=== PATIENT | male | born 1940 | race Caucasian/White ===

== ENCOUNTER 2016-09-22 10:26 | Inpatient (IN) | payer MEDICARE, MEDICAID ==
[~2016-09-22] VITALS: Ht 188 cm; Wt 51.1 kg
[2016-09-22] MEDS ORDERED: SODIUM CHLORIDE FLUSH 10ML SYR IVF ONE (11:30)
[2016-09-22] MEDS ORDERED: SODIUM CHLORIDE 0.9% 1,000ML IVBOLUS ONE (11:30)
[2016-09-22 11:32] LABS: HEMATOCRIT 35.8 % (39.2-51.8); HEMOGLOBIN 11.3 g/dL (13.7-18.0); WHITE BLOOD COUNT 10.2 x10^3/uL (3.4-10)
[2016-09-22 11:42] LABS: BLOOD UREA NITROGEN 14 mg/dL (7-18)
[2016-09-22 11:48] LABS: ASPARTATE AMINO TRANSFERASE 33 U/L (15-37); IS PT STATUS REG ER OR PRE ER? YES
[2016-09-22] MEDS ORDERED: SODIUM CHLORIDE 0.9% 1,000 ML IV ONE (14:30)
[2016-09-22] MEDS ORDERED: SODIUM CHLORIDE FLUSH 10ML SYR IVF PRN (14:30)
[2016-09-22] MEDS ORDERED: MELA1TAB22 PO (14:39)
[2016-09-22] MEDS ORDERED: TRAZ50TA18 PO (14:39)
[2016-09-22] MEDS ORDERED: LANS30CA PO (14:39)
[2016-09-22] MEDS ORDERED: HYDR-3245 PO (14:39)
[2016-09-22] MEDS ORDERED: OXYC10TA6 PO (14:39)
[2016-09-22] MEDS ORDERED: LEVO25TA2 PO (14:39)
[2016-09-22] MEDS ORDERED: TIOT18CA INH (14:39)
[2016-09-22] MEDS ORDERED: FLUT1AER INH (14:39)
[2016-09-22] MEDS ORDERED: OXYC5CAP2 PO (14:39)
[2016-09-22] MEDS ORDERED: ALBU0.63 NEB (14:39)
[2016-09-22] MEDS ORDERED: LORA1TAB PO (14:39)
[2016-09-22] MEDS ORDERED: LEVE500T8 PO (14:39)
[2016-09-22] MEDS ORDERED: HYDROcodone/APAP 5/325 TABLET PO ONE (15:00)
[2016-09-22] MEDS ORDERED: MORPHINE SULFATE 4 MG/ML, 1ML ONE (15:15)
[2016-09-22] MEDS ORDERED: DOCUSATE 100 MG CAPSULE PO PRN (15:30)
[2016-09-22] MEDS ORDERED: ACETAMINOPHEN 325 MG TABLET PO PRN (15:30)
[2016-09-22] MEDS: ENOXAPARIN 30 MG/0.3 ML SQ SCH (15:30)
[2016-09-22] MEDS ORDERED: ENALAPRILAT 1.25 MG/ML, 2ML IVPush PRN (15:30)
[2016-09-22] MEDS ORDERED: POLYETHYLENE GLYCOL 17 GM PACKET PO PRN (15:30)
[2016-09-22] MEDS ORDERED: MORPHINE SULFATE 4 MG/ML, 1ML IVPush PRN (15:30)
[2016-09-22] MEDS ORDERED: ONDANSETRON 2MG/ML, 2ML IVPush PRN (15:30)
[2016-09-22] MEDS ORDERED: BISACODYL 10 MG SUPP PR PRN (15:30)
[2016-09-22 15:45] VITALS: BP 116/69
[2016-09-22] MEDS ORDERED: ALBUTEROL SULFATE 2.5 MG/3 ML NPPB PRN (16:00)
[2016-09-22 17:28] LABS: PATH.CAST-FLAG NOT PRESENT; SPERM-FLAG NOT PRESENT; SRC-FLAG NOT PRESENT; XTAL-FLAG NOT PRESENT; YLC-FLAG NOT PRESENT
[2016-09-22] MEDS: NICOTINE 7 MG/24 HR PATCH.TD24 TD SCH (17:57)
[2016-09-22] MEDS: HYDROcodone/APAP 5/325 TABLET PO PRN ×2 (17:57→22:28)
[2016-09-22] MEDS: D5%-0.45% NACL 1,000 ML IV SCH (17:58)
[2016-09-22 19:13] VITALS: BP 120/64
[2016-09-22] MEDS: FAMOTIDINE 20 MG/2 ML IVPush SCH (22:27)
[2016-09-22] MEDS: LEVETIRACETAM 500 MG TABLET PO SCH (22:27)
[2016-09-22] MEDS: TRAZODONE 50MG TABLET PO SCH (22:28)
[2016-09-23 03:13] VITALS: BP 118/67
[2016-09-23] MEDS: D5%-0.45% NACL 1,000 ML IV SCH ×2 (03:29→16:00)
[2016-09-23] MEDS: ENOXAPARIN 30 MG/0.3 ML SQ SCH ×2 (03:30→15:30)
[2016-09-23] MEDS: HYDROcodone/APAP 5/325 TABLET PO PRN ×3 (03:33→20:05)
[2016-09-23 04:46] LABS: BLOOD UREA NITROGEN 7 mg/dL (7-18)
[2016-09-23 04:51] LABS: HEMATOCRIT 29.3 % (39.2-51.8); HEMOGLOBIN 9.4 g/dL (13.7-18.0); WHITE BLOOD COUNT 9.2 x10^3/uL (3.4-10)
[2016-09-23] MEDS: LEVOTHYROXINE 25 MCG TABLET PO SCH (05:52)
[2016-09-23 07:58] VITALS: BP_SYST 103; BP_SYST 93; BP_DIAS 52
[2016-09-23] MEDS: FLUTICASONE/VILANTEROL 100-25MCG/INH INH SCH (09:00)
[2016-09-23] MEDS: IPRATROPIUM 0.5 MG/2.5 ML INHA NPPB SCH ×3 (09:00→21:00)
[2016-09-23 09:44] LABS: IS PT STATUS REG ER OR PRE ER? NO
[2016-09-23] MEDS: LEVETIRACETAM 500 MG TABLET PO SCH ×2 (10:03→21:37)
[2016-09-23] MEDS: FAMOTIDINE 20 MG/2 ML IVPush SCH ×2 (10:03→21:37)
[2016-09-23 14:30] VITALS: BP 101/56
[2016-09-23] MEDS: NICOTINE 7 MG/24 HR PATCH.TD24 TD SCH (16:00)
[2016-09-23 19:02] VITALS: BP 120/67
[2016-09-23] MEDS: TRAZODONE 50MG TABLET PO SCH (21:37)
[2016-09-24] MEDS: D5%-0.45% NACL 1,000 ML IV SCH ×2 (00:09→12:00)
[2016-09-24] MEDS: HYDROcodone/APAP 5/325 TABLET PO PRN ×5 (00:09→23:17)
[2016-09-24] MEDS: LORazepam 1MG TABLET PO PRN ×2 (00:09→12:00)
[2016-09-24 01:54] VITALS: BP 101/56
[2016-09-24] MEDS: IPRATROPIUM 0.5 MG/2.5 ML INHA NPPB SCH ×2 (03:00→09:00)
[2016-09-24] MEDS: ENOXAPARIN 30 MG/0.3 ML SQ SCH ×2 (03:14→18:36)
[2016-09-24] MEDS: LEVOTHYROXINE 25 MCG TABLET PO SCH (05:41)
[2016-09-24 08:30] VITALS: BP 120/68
[2016-09-24] MEDS: FLUTICASONE/VILANTEROL 100-25MCG/INH INH SCH (09:00)
[2016-09-24] MEDS: LEVETIRACETAM 500 MG TABLET PO SCH ×2 (12:01→20:23)
[2016-09-24] MEDS: FAMOTIDINE 20 MG/2 ML IVPush SCH ×2 (12:01→20:25)
[2016-09-24 14:30] VITALS: BP 132/70
[2016-09-24] MEDS ORDERED: ALBUTEROL SULFATE 2.5MG/0.5ML HOMEINH PRN (14:30)
[2016-09-24] MEDS ORDERED: VENTOLIN 90 MCG INH PRN (15:00)
[2016-09-24] MEDS ORDERED: ALBUTEROL SULFATE 2.5 MG/3 ML NPPB PRN (15:04)
[2016-09-24] MEDS: NICOTINE 7 MG/24 HR PATCH.TD24 TD SCH (18:36)
[2016-09-24 18:41] VITALS: BP 117/64
[2016-09-24] MEDS: TRAZODONE 50MG TABLET PO SCH (20:24)
[2016-09-25 02:39] VITALS: BP 142/73
[2016-09-25] MEDS: HYDROcodone/APAP 5/325 TABLET PO PRN ×3 (05:16→20:40)
[2016-09-25] MEDS: ENOXAPARIN 30 MG/0.3 ML SQ SCH ×3 (06:00→17:42)
[2016-09-25] MEDS: LEVOTHYROXINE 25 MCG TABLET PO SCH (06:07)
[2016-09-25 06:52] VITALS: BP 128/65
[2016-09-25] MEDS: HYDROcodone/APAP 10/325 MG TABLET PO PRN (08:57)
[2016-09-25] MEDS: FAMOTIDINE 20 MG/2 ML IVPush SCH ×2 (08:57→20:40)
[2016-09-25] MEDS: LEVETIRACETAM 500 MG TABLET PO SCH ×2 (08:58→20:40)
[2016-09-25] MEDS: ASCORBIC ACID 500 MG TABLET PO SCH (08:58)
[2016-09-25 14:53] VITALS: BP 115/61
[2016-09-25] MEDS: NICOTINE 7 MG/24 HR PATCH.TD24 TD SCH (16:15)
[2016-09-25] MEDS: FERROUS SULFATE 220 MG/5 ML ORAL SOL PO SCH (16:15)
[2016-09-25] MEDS: PIPERACILLIN/TAZO 3.375 GM in SODIUM CHLORIDE 0.9% 50 ML IV SCH ×2 (16:37→22:12)
[2016-09-25] MEDS: FLUTICASONE/VILANTEROL 100-25MCG/INH INH SCH (16:37)
[2016-09-25 19:53] VITALS: BP 111/60
[2016-09-25] MEDS: TRAZODONE 50MG TABLET PO SCH (20:40)
[2016-09-25] MEDS: morphine SULFATE 10 MG/ML, 1ML IVPush PRN (22:38)
[2016-09-26 01:26] VITALS: BP 106/54
[2016-09-26] MEDS: PIPERACILLIN/TAZO 3.375 GM in SODIUM CHLORIDE 0.9% 50 ML IV SCH ×4 (04:13→22:56)
[2016-09-26] MEDS: ENOXAPARIN 30 MG/0.3 ML SQ SCH ×2 (06:00→16:24)
[2016-09-26] MEDS: LEVOTHYROXINE 25 MCG TABLET PO SCH (06:05)
[2016-09-26] MEDS: HYDROcodone/APAP 5/325 TABLET PO PRN ×4 (06:12→22:56)
[2016-09-26 06:48] VITALS: BP 115/72
[2016-09-26] MEDS: morphine SULFATE 10 MG/ML, 1ML IVPush PRN ×4 (09:19→23:46)
[2016-09-26] MEDS: LEVETIRACETAM 500 MG TABLET PO SCH ×2 (09:19→21:39)
[2016-09-26] MEDS: FLUTICASONE/VILANTEROL 100-25MCG/INH INH SCH (09:19)
[2016-09-26] MEDS: ASCORBIC ACID 500 MG TABLET PO SCH (09:19)
[2016-09-26] MEDS: FERROUS SULFATE 220 MG/5 ML ORAL SOL PO SCH (09:19)
[2016-09-26] MEDS: FAMOTIDINE 20 MG/2 ML IVPush SCH ×2 (09:19→21:39)
[2016-09-26 13:07] VITALS: BP 108/56
[2016-09-26] MEDS: methylPREDNISolone SOD SUCC 125 MG/2 ML IVPush SCH (15:19)
[2016-09-26] MEDS: NICOTINE 7 MG/24 HR PATCH.TD24 TD SCH (15:20)
[2016-09-26] MEDS: DIPHENHYDRAMINE/ZINC CRM 2%, 30GM TP PRN (16:23)
[2016-09-26] MEDS ORDERED: GOLYTELY 4,000ML ORAL.SOL ONE (19:47)
[2016-09-26 19:59] VITALS: BP 100/58
[2016-09-26] MEDS: TRAZODONE 50MG TABLET PO SCH (21:39)
[2016-09-27] MEDS: methylPREDNISolone SOD SUCC 125 MG/2 ML IVPush SCH ×2 (01:34→13:22)
[2016-09-27 01:46] VITALS: BP 103/56
[2016-09-27] MEDS: morphine SULFATE 10 MG/ML, 1ML IVPush PRN ×5 (02:44→22:43)
[2016-09-27] MEDS: PIPERACILLIN/TAZO 3.375 GM in SODIUM CHLORIDE 0.9% 50 ML IV SCH ×4 (04:18→22:43)
[2016-09-27] MEDS: HYDROcodone/APAP 5/325 TABLET PO PRN ×4 (04:18→21:26)
[2016-09-27] MEDS: ENOXAPARIN 30 MG/0.3 ML SQ SCH ×4 (06:00→18:21)
[2016-09-27] MEDS: LEVOTHYROXINE 25 MCG TABLET PO SCH (06:02)
[2016-09-27 06:57] VITALS: BP 113/61
[2016-09-27] MEDS ORDERED: MORPHINE SULFATE 4 MG/ML, 1ML ONE ×3 (08:05→18:16)
[2016-09-27] MEDS: FLUTICASONE/VILANTEROL 100-25MCG/INH INH SCH (08:12)
[2016-09-27] MEDS: ASCORBIC ACID 500 MG TABLET PO SCH (08:13)
[2016-09-27] MEDS: LEVETIRACETAM 500 MG TABLET PO SCH ×2 (08:13→21:25)
[2016-09-27] MEDS: DIPHENHYDRAMINE/ZINC CRM 2%, 30GM TP PRN (08:15)
[2016-09-27] MEDS: FAMOTIDINE 20 MG/2 ML IVPush SCH ×2 (08:16→21:26)
[2016-09-27] MEDS: FERROUS SULFATE 220 MG/5 ML ORAL SOL PO SCH (08:16)
[2016-09-27 13:01] VITALS: BP 110/61
[2016-09-27] MEDS: NICOTINE 7 MG/24 HR PATCH.TD24 TD SCH (15:47)
[2016-09-27 19:11] VITALS: BP 140/66
[2016-09-27] MEDS: TRAZODONE 50MG TABLET PO SCH (21:26)
[2016-09-27] MEDS: LORazepam 1MG TABLET PO PRN (22:43)
[2016-09-28 01:20] VITALS: BP 132/62
[2016-09-28] MEDS: methylPREDNISolone SOD SUCC 125 MG/2 ML IVPush SCH (01:34)
[2016-09-28] MEDS: PIPERACILLIN/TAZO 3.375 GM in SODIUM CHLORIDE 0.9% 50 ML IV SCH ×4 (03:59→22:21)
[2016-09-28] MEDS: ENOXAPARIN 30 MG/0.3 ML SQ SCH ×2 (06:00→17:02)
[2016-09-28] MEDS: LEVOTHYROXINE 25 MCG TABLET PO SCH (06:01)
[2016-09-28 07:15] VITALS: BP 132/65
[2016-09-28 08:18] LABS: HEMATOCRIT 33.1 % (39.2-51.8); HEMOGLOBIN 10.5 g/dL (13.7-18.0); WHITE BLOOD COUNT 19.8 x10^3/uL (3.4-10)
[2016-09-28 08:29] LABS: BLOOD UREA NITROGEN 18 mg/dL (7-18)
[2016-09-28 08:53] LABS: DIFF TOTAL CELLS COUNTED 100 CELL DIFF
[2016-09-28 08:56] LABS: VERIFY COUNTS? YES
[2016-09-28 08:58] LABS: ANISOCYTOSIS 1+; HYPOCHROMIA 1+
[2016-09-28] MEDS: FLUTICASONE/VILANTEROL 100-25MCG/INH INH SCH (10:10)
[2016-09-28] MEDS: LEVETIRACETAM 500 MG TABLET PO SCH ×2 (10:10→19:48)
[2016-09-28] MEDS: ASCORBIC ACID 500 MG TABLET PO SCH (10:10)
[2016-09-28] MEDS: FERROUS SULFATE 220 MG/5 ML ORAL SOL PO SCH (10:10)
[2016-09-28] MEDS: FAMOTIDINE 20 MG/2 ML IVPush SCH ×2 (10:10→19:48)
[2016-09-28] MEDS ORDERED: MORPHINE SULFATE 4 MG/ML, 1ML ONE (10:16)
[2016-09-28] MEDS: morphine SULFATE 10 MG/ML, 1ML IVPush PRN ×4 (10:19→20:00)
[2016-09-28 12:56] VITALS: BP 134/76
[2016-09-28] MEDS: NICOTINE 7 MG/24 HR PATCH.TD24 TD SCH (16:02)
[2016-09-28] MEDS: DIPHENHYDRAMINE/ZINC CRM 2%, 30GM TP PRN (17:42)
[2016-09-28 18:59] VITALS: BP 99/42
[2016-09-28] MEDS: TRAZODONE 50MG TABLET PO SCH (19:48)
[2016-09-28] MEDS: LORazepam 1MG TABLET PO PRN (22:21)
[2016-09-29] MEDS: morphine SULFATE 10 MG/ML, 1ML IVPush PRN ×7 (00:41→23:42)
[2016-09-29 02:43] VITALS: BP 104/50
[2016-09-29] MEDS: PIPERACILLIN/TAZO 3.375 GM in SODIUM CHLORIDE 0.9% 50 ML IV SCH ×3 (04:06→16:15)
[2016-09-29] MEDS: LEVOTHYROXINE 25 MCG TABLET PO SCH (05:41)
[2016-09-29] MEDS: ENOXAPARIN 30 MG/0.3 ML SQ SCH ×2 (05:42→16:10)
[2016-09-29 05:59] LABS: HEMATOCRIT 31.6 % (39.2-51.8); HEMOGLOBIN 10.1 g/dL (13.7-18.0)
[2016-09-29 06:49] VITALS: BP 113/63
[2016-09-29 06:49] LABS: BLOOD UREA NITROGEN 22 mg/dL (7-18)
[2016-09-29] MEDS ORDERED: predniSONE 50MG TABLET PO SCH (08:00)
[2016-09-29] MEDS: ASCORBIC ACID 500 MG TABLET PO SCH (08:52)
[2016-09-29] MEDS: FERROUS SULFATE 220 MG/5 ML ORAL SOL PO SCH (08:52)
[2016-09-29] MEDS: FLUTICASONE/VILANTEROL 100-25MCG/INH INH SCH (08:53)
[2016-09-29] MEDS: LEVETIRACETAM 500 MG TABLET PO SCH ×2 (08:53→20:09)
[2016-09-29] MEDS: FAMOTIDINE 20 MG/2 ML IVPush SCH ×2 (08:53→20:01)
[2016-09-29] MEDS ORDERED: POTASSIUM PHOSPHATE 44 MEQ in SODIUM CHLORIDE 0.9% 500 ML IV ONE (09:30)
[2016-09-29] MEDS: HYDROcodone/APAP 10/325 MG TABLET PO PRN ×2 (10:08→18:07)
[2016-09-29] MEDS ORDERED: MORPHINE SULFATE 4 MG/ML, 1ML ONE ×2 (12:35→16:12)
[2016-09-29 12:57] VITALS: BP 107/64
[2016-09-29] MEDS: NICOTINE 7 MG/24 HR PATCH.TD24 TD SCH (16:15)
[2016-09-29 19:23] VITALS: BP 146/73
[2016-09-29] MEDS: TRAZODONE 50MG TABLET PO SCH (20:09)
[2016-09-29] MEDS: AMOXICILLIN/CLAV 875-125MG TABLET PO SCH (20:09)
[2016-09-30] MEDS: HYDROcodone/APAP 10/325 MG TABLET PO PRN ×2 (00:12→18:26)
[2016-09-30 01:37] VITALS: BP 147/72
[2016-09-30] MEDS: morphine SULFATE 10 MG/ML, 1ML IVPush PRN ×5 (02:47→22:56)
[2016-09-30] MEDS: ENOXAPARIN 30 MG/0.3 ML SQ SCH ×2 (04:37→15:38)
[2016-09-30 05:23] LABS: BLOOD UREA NITROGEN 16 mg/dL (7-18)
[2016-09-30 05:25] LABS: HEMATOCRIT 34.3 % (39.2-51.8); HEMOGLOBIN 10.8 g/dL (13.7-18.0); WHITE BLOOD COUNT 13.5 x10^3/uL (3.4-10)
[2016-09-30] MEDS: LEVOTHYROXINE 25 MCG TABLET PO SCH (05:57)
[2016-09-30 07:00] VITALS: BP 134/71
[2016-09-30] MEDS: LEVETIRACETAM 500 MG TABLET PO SCH ×2 (09:02→20:01)
[2016-09-30] MEDS: FERROUS SULFATE 220 MG/5 ML ORAL SOL PO SCH (09:02)
[2016-09-30] MEDS: FLUTICASONE/VILANTEROL 100-25MCG/INH INH SCH (09:02)
[2016-09-30] MEDS: FAMOTIDINE 20 MG/2 ML IVPush SCH ×2 (09:03→20:02)
[2016-09-30] MEDS: ASCORBIC ACID 500 MG TABLET PO SCH (09:03)
[2016-09-30] MEDS: AMOXICILLIN/CLAV 875-125MG TABLET PO SCH ×2 (09:03→20:01)
[2016-09-30] MEDS ORDERED: POTASSIUM PHOSPHATE 44 MEQ in SODIUM CHLORIDE 0.9% 500 ML IV ONE (13:00)
[2016-09-30 13:17] VITALS: BP 118/78
[2016-09-30] MEDS: NICOTINE 7 MG/24 HR PATCH.TD24 TD SCH (15:38)
[2016-09-30 19:07] VITALS: BP 136/76
[2016-09-30] MEDS: TRAZODONE 50MG TABLET PO SCH (20:01)
[2016-10-01] MEDS: HYDROcodone/APAP 10/325 MG TABLET PO PRN (00:32)
[2016-10-01 01:48] VITALS: BP 136/66
[2016-10-01] MEDS: morphine SULFATE 10 MG/ML, 1ML IVPush PRN ×6 (02:26→21:19)
[2016-10-01 05:35] LABS: HEMOGLOBIN 11.6 g/dL (13.7-18.0); WHITE BLOOD COUNT 14.1 x10^3/uL (3.4-10)
[2016-10-01 05:46] LABS: BLOOD UREA NITROGEN 14 mg/dL (7-18)
[2016-10-01] MEDS: LEVOTHYROXINE 25 MCG TABLET PO SCH (05:59)
[2016-10-01] MEDS: ENOXAPARIN 30 MG/0.3 ML SQ SCH ×2 (06:00→18:00)
[2016-10-01 06:48] VITALS: BP 129/72
[2016-10-01] MEDS: FLUTICASONE/VILANTEROL 100-25MCG/INH INH SCH (09:09)
[2016-10-01] MEDS: FAMOTIDINE 20 MG/2 ML IVPush SCH ×2 (09:09→20:36)
[2016-10-01] MEDS: LEVETIRACETAM 500 MG TABLET PO SCH ×2 (09:09→20:35)
[2016-10-01] MEDS: AMOXICILLIN/CLAV 875-125MG TABLET PO SCH ×2 (09:09→20:35)
[2016-10-01] MEDS: ASCORBIC ACID 500 MG TABLET PO SCH (09:09)
[2016-10-01] MEDS: FERROUS SULFATE 220 MG/5 ML ORAL SOL PO SCH (09:09)
[2016-10-01] MEDS: DIPHENHYDRAMINE/ZINC CRM 2%, 30GM TP PRN (09:48)
[2016-10-01 12:29] VITALS: BP 109/68
[2016-10-01] MEDS: NICOTINE 7 MG/24 HR PATCH.TD24 TD SCH (13:50)
[2016-10-01] MEDS ORDERED: MELATONIN 3 MG TABLET PO PRN (18:30)
[2016-10-01 18:34] VITALS: BP 107/69
[2016-10-01] MEDS: TRAZODONE 50MG TABLET PO SCH (20:35)
[2016-10-01] MEDS: LORazepam 1MG TABLET PO PRN (20:36)
[2016-10-02 01:37] VITALS: BP 124/73
[2016-10-02] MEDS: morphine SULFATE 10 MG/ML, 1ML IVPush PRN ×5 (02:03→23:24)
[2016-10-02 05:48] LABS: HEMATOCRIT 37.3 % (39.2-51.8); HEMOGLOBIN 11.9 g/dL (13.7-18.0); WHITE BLOOD COUNT 11.8 x10^3/uL (3.4-10)
[2016-10-02] MEDS: ENOXAPARIN 30 MG/0.3 ML SQ SCH ×2 (06:00→16:41)
[2016-10-02] MEDS: LEVOTHYROXINE 25 MCG TABLET PO SCH (06:00)
[2016-10-02 06:52] VITALS: BP 106/66
[2016-10-02 07:13] LABS: BLOOD UREA NITROGEN 18 mg/dL (7-18)
[2016-10-02] MEDS: FLUTICASONE/VILANTEROL 100-25MCG/INH INH SCH (08:37)
[2016-10-02] MEDS: FERROUS SULFATE 220 MG/5 ML ORAL SOL PO SCH (08:37)
[2016-10-02] MEDS: AMOXICILLIN/CLAV 875-125MG TABLET PO SCH ×2 (08:38→20:17)
[2016-10-02] MEDS: FAMOTIDINE 20 MG/2 ML IVPush SCH ×2 (08:38→20:17)
[2016-10-02] MEDS: ASCORBIC ACID 500 MG TABLET PO SCH (08:38)
[2016-10-02] MEDS: LEVETIRACETAM 500 MG TABLET PO SCH ×2 (08:38→20:17)
[2016-10-02] MEDS ORDERED: MORPHINE SULFATE 4 MG/ML, 1ML ONE (11:40)
[2016-10-02] MEDS: DIPHENHYDRAMINE/ZINC CRM 2%, 30GM TP PRN (11:42)
[2016-10-02 13:45] VITALS: BP 99/62
[2016-10-02] MEDS: NICOTINE 7 MG/24 HR PATCH.TD24 TD SCH (14:53)
[2016-10-02 19:02] VITALS: BP 112/70
[2016-10-02] MEDS ORDERED: BISACODYL 10 MG SUPP PR PRN (19:30)
[2016-10-02] MEDS ORDERED: DOCUSATE 100 MG CAPSULE PO PRN (19:30)
[2016-10-02] MEDS ORDERED: ACETAMINOPHEN 325 MG TABLET PO PRN (19:30)
[2016-10-02] MEDS: TRAZODONE 50MG TABLET PO SCH (20:18)
[2016-10-03] MEDS: morphine SULFATE 10 MG/ML, 1ML IVPush PRN ×6 (02:49→20:44)
[2016-10-03 03:06] VITALS: BP 121/78
[2016-10-03 05:28] LABS: HEMATOCRIT 39.1 % (39.2-51.8); HEMOGLOBIN 12.3 g/dL (13.7-18.0); WHITE BLOOD COUNT 15.3 x10^3/uL (3.4-10)
[2016-10-03 05:33] LABS: ASPARTATE AMINO TRANSFERASE 37 U/L (15-37); BLOOD UREA NITROGEN 20 mg/dL (7-18)
[2016-10-03] MEDS: LEVOTHYROXINE 25 MCG TABLET PO SCH (06:15)
[2016-10-03] MEDS: ENOXAPARIN 30 MG/0.3 ML SQ SCH ×2 (06:15→17:36)
[2016-10-03 07:49] VITALS: BP 100/64
[2016-10-03] MEDS: FLUTICASONE/VILANTEROL 100-25MCG/INH INH SCH (08:35)
[2016-10-03] MEDS: FAMOTIDINE 20 MG/2 ML IVPush SCH ×2 (08:35→20:44)
[2016-10-03] MEDS: FERROUS SULFATE 220 MG/5 ML ORAL SOL PO SCH (08:35)
[2016-10-03] MEDS: AMOXICILLIN/CLAV 875-125MG TABLET PO SCH ×2 (08:36→20:44)
[2016-10-03] MEDS: LEVETIRACETAM 500 MG TABLET PO SCH ×2 (08:36→20:44)
[2016-10-03] MEDS: ASCORBIC ACID 500 MG TABLET PO SCH (08:36)
[2016-10-03] MEDS: DIPHENHYDRAMINE/ZINC CRM 2%, 30GM TP PRN (13:53)
[2016-10-03 15:40] VITALS: BP 100/71
[2016-10-03] MEDS: NICOTINE 7 MG/24 HR PATCH.TD24 TD SCH (17:36)
[2016-10-03 19:48] VITALS: BP 109/68
[2016-10-03] MEDS: TRAZODONE 50MG TABLET PO SCH (20:44)
[2016-10-04] MEDS: morphine SULFATE 10 MG/ML, 1ML IVPush PRN ×4 (01:02→17:29)
[2016-10-04 03:00] VITALS: BP 116/74
[2016-10-04] MEDS: LEVOTHYROXINE 25 MCG TABLET PO SCH (05:05)
[2016-10-04] MEDS: ENOXAPARIN 30 MG/0.3 ML SQ SCH ×2 (05:06→17:29)
[2016-10-04 09:31] VITALS: BP 134/71
[2016-10-04] MEDS: FERROUS SULFATE 220 MG/5 ML ORAL SOL PO SCH (09:33)
[2016-10-04] MEDS: ASCORBIC ACID 500 MG TABLET PO SCH (09:33)
[2016-10-04] MEDS: FAMOTIDINE 20 MG/2 ML IVPush SCH ×2 (09:33→19:19)
[2016-10-04] MEDS: LEVETIRACETAM 500 MG TABLET PO SCH ×2 (09:33→19:19)
[2016-10-04] MEDS: AMOXICILLIN/CLAV 875-125MG TABLET PO SCH ×2 (09:33→19:19)
[2016-10-04] MEDS: FLUTICASONE/VILANTEROL 100-25MCG/INH INH SCH (09:34)
[2016-10-04 15:12] VITALS: BP 106/69
[2016-10-04] MEDS: HYDROcodone/APAP 5/325 TABLET PO PRN ×2 (15:29→19:37)
[2016-10-04] MEDS: NICOTINE 7 MG/24 HR PATCH.TD24 TD SCH (17:29)
[2016-10-04] MEDS: TRAZODONE 50MG TABLET PO SCH (19:19)
[2016-10-04 19:40] VITALS: BP 110/70
[2016-10-05] MEDS: morphine SULFATE 10 MG/ML, 1ML IVPush PRN ×4 (01:08→18:19)
[2016-10-05 02:49] VITALS: BP 108/69
[2016-10-05] MEDS: HYDROcodone/APAP 5/325 TABLET PO PRN ×3 (03:16→19:03)
[2016-10-05] MEDS: ONDANSETRON ODT 4 MG PO PRN (06:09)
[2016-10-05] MEDS: LEVOTHYROXINE 25 MCG TABLET PO SCH (06:09)
[2016-10-05] MEDS: ENOXAPARIN 30 MG/0.3 ML SQ SCH ×2 (06:09→18:19)
[2016-10-05] MEDS: DIPHENHYDRAMINE/ZINC CRM 2%, 30GM TP PRN (06:25)
[2016-10-05 07:20] VITALS: BP 107/67
[2016-10-05] MEDS: FERROUS SULFATE 220 MG/5 ML ORAL SOL PO SCH (10:18)
[2016-10-05] MEDS: LEVETIRACETAM 500 MG TABLET PO SCH ×2 (10:18→20:57)
[2016-10-05] MEDS: ASCORBIC ACID 500 MG TABLET PO SCH (10:18)
[2016-10-05] MEDS: AMOXICILLIN/CLAV 875-125MG TABLET PO SCH ×2 (10:18→20:57)
[2016-10-05] MEDS: FAMOTIDINE 20 MG/2 ML IVPush SCH ×2 (10:18→20:57)
[2016-10-05] MEDS: FLUTICASONE/VILANTEROL 100-25MCG/INH INH SCH (10:21)
[2016-10-05 13:51] VITALS: BP 94/60
[2016-10-05] MEDS: NICOTINE 7 MG/24 HR PATCH.TD24 TD SCH (18:19)
[2016-10-05 19:01] VITALS: BP 98/64
[2016-10-05] MEDS: TRAZODONE 50MG TABLET PO SCH (20:57)
[2016-10-06 01:47] VITALS: BP 109/64
[2016-10-06] MEDS: morphine SULFATE 10 MG/ML, 1ML IVPush PRN ×5 (03:30→20:50)
[2016-10-06 05:41] LABS: HEMATOCRIT 36.5 % (39.2-51.8); HEMOGLOBIN 11.7 g/dL (13.7-18.0); WHITE BLOOD COUNT 14.4 x10^3/uL (3.4-10)
[2016-10-06 05:49] LABS: BLOOD UREA NITROGEN 20 mg/dL (7-18)
[2016-10-06] MEDS: ENOXAPARIN 30 MG/0.3 ML SQ SCH ×2 (06:04→18:00)
[2016-10-06] MEDS: LEVOTHYROXINE 25 MCG TABLET PO SCH (06:05)
[2016-10-06] MEDS: HYDROcodone/APAP 5/325 TABLET PO PRN ×2 (06:05→18:01)
[2016-10-06 06:27] VITALS: BP 104/65
[2016-10-06] MEDS: LEVETIRACETAM 500 MG TABLET PO SCH ×2 (09:00→09:40)
[2016-10-06] MEDS: AMOXICILLIN/CLAV 875-125MG TABLET PO SCH ×2 (09:40→20:50)
[2016-10-06] MEDS: ASCORBIC ACID 500 MG TABLET PO SCH (09:40)
[2016-10-06] MEDS: FAMOTIDINE 20 MG/2 ML IVPush SCH ×2 (09:41→20:50)
[2016-10-06] MEDS: FLUTICASONE/VILANTEROL 100-25MCG/INH INH SCH (09:41)
[2016-10-06] MEDS: FERROUS SULFATE 220 MG/5 ML ORAL SOL PO SCH (09:41)
[2016-10-06] MEDS ORDERED: LEVETIRACETAM 100 MG/ML, 5ML IV SCH (10:30)
[2016-10-06] MEDS ORDERED: CARBAMIDE PEROXIDE EAR DROPS 6.5%, 15ML LEFT EAR ONE (10:30)
[2016-10-06] MEDS: LEVETIRACETAM 500 MG in SODIUM CHLORIDE 0.9% 100 ML IV SCH ×2 (12:35→20:51)
[2016-10-06] MEDS: LEVETIRACETAM 100 MG/ML ORAL SOL PO SCH ×2 (12:39→20:51)
[2016-10-06 12:40] VITALS: BP 96/60
[2016-10-06 13:14] VITALS: BP 106/65
[2016-10-06 13:49] VITALS: BP 111/71
[2016-10-06] MEDS: NICOTINE 7 MG/24 HR PATCH.TD24 TD SCH (18:00)
[2016-10-06 19:37] VITALS: BP 115/71
[2016-10-06] MEDS: TRAZODONE 50MG TABLET PO SCH (20:50)
[2016-10-06] MEDS: DIPHENHYDRAMINE/ZINC CRM 2%, 30GM TP PRN (22:04)
[2016-10-06] MEDS: HYDROcodone/APAP 10/325 MG TABLET PO PRN (22:04)
[2016-10-07] MEDS: morphine SULFATE 10 MG/ML, 1ML IVPush PRN ×6 (00:01→23:15)
[2016-10-07 00:59] VITALS: BP 106/65
[2016-10-07] MEDS: LEVOTHYROXINE 25 MCG TABLET PO SCH (06:13)
[2016-10-07] MEDS: ENOXAPARIN 30 MG/0.3 ML SQ SCH ×2 (06:13→16:45)
[2016-10-07 06:58] VITALS: BP 97/62
[2016-10-07] MEDS: FLUTICASONE/VILANTEROL 100-25MCG/INH INH SCH (07:47)
[2016-10-07] MEDS: ASCORBIC ACID 500 MG TABLET PO SCH (07:47)
[2016-10-07] MEDS: LEVETIRACETAM 100 MG/ML ORAL SOL PO SCH ×2 (07:47→21:20)
[2016-10-07] MEDS: AMOXICILLIN/CLAV 875-125MG TABLET PO SCH ×2 (07:47→21:19)
[2016-10-07] MEDS: FAMOTIDINE 20 MG/2 ML IVPush SCH ×2 (07:48→21:19)
[2016-10-07] MEDS: FERROUS SULFATE 220 MG/5 ML ORAL SOL PO SCH (07:48)
[2016-10-07 08:56] LABS: PATH.CAST-FLAG NOT PRESENT; SPERM-FLAG NOT PRESENT; SRC-FLAG NOT PRESENT; XTAL-FLAG NOT PRESENT; YLC-FLAG NOT PRESENT
[2016-10-07] MEDS: HYDROcodone/APAP 5/325 TABLET PO PRN ×2 (09:38→16:44)
[2016-10-07 12:25] VITALS: BP 103/65
[2016-10-07] MEDS: CARBAMIDE PEROXIDE EAR DROPS 6.5%, 15ML LEFT EAR PRN (16:43)
[2016-10-07] MEDS: NICOTINE 7 MG/24 HR PATCH.TD24 TD SCH (16:44)
[2016-10-07 18:29] VITALS: BP 103/69
[2016-10-07] MEDS: TRAZODONE 50MG TABLET PO SCH (21:19)
[2016-10-07] MEDS: HYDROcodone/APAP 10/325 MG TABLET PO PRN (21:19)
[2016-10-08 00:42] VITALS: BP 104/65
[2016-10-08] MEDS: morphine SULFATE 10 MG/ML, 1ML IVPush PRN ×5 (03:26→18:33)
[2016-10-08 05:22] LABS: HEMATOCRIT 37.3 % (39.2-51.8); HEMOGLOBIN 11.8 g/dL (13.7-18.0); WHITE BLOOD COUNT 18.5 x10^3/uL (3.4-10)
[2016-10-08 05:31] LABS: BLOOD UREA NITROGEN 21 mg/dL (7-18)
[2016-10-08 05:35] LABS: ASPARTATE AMINO TRANSFERASE 19 U/L (15-37)
[2016-10-08] MEDS: ENOXAPARIN 30 MG/0.3 ML SQ SCH ×2 (06:27→18:28)
[2016-10-08] MEDS: LEVOTHYROXINE 25 MCG TABLET PO SCH (06:27)
[2016-10-08 07:01] VITALS: BP 106/61
[2016-10-08] MEDS: ASCORBIC ACID 500 MG TABLET PO SCH (07:33)
[2016-10-08] MEDS: FLUTICASONE/VILANTEROL 100-25MCG/INH INH SCH (07:33)
[2016-10-08] MEDS: HYDROcodone/APAP 10/325 MG TABLET PO PRN (07:33)
[2016-10-08] MEDS: FERROUS SULFATE 220 MG/5 ML ORAL SOL PO SCH (07:33)
[2016-10-08] MEDS: LEVETIRACETAM 100 MG/ML ORAL SOL PO SCH ×2 (09:24→20:24)
[2016-10-08] MEDS: FAMOTIDINE 20 MG/2 ML IVPush SCH ×2 (09:24→20:25)
[2016-10-08] MEDS: AMOXICILLIN/CLAV 875-125MG TABLET PO SCH ×2 (09:24→20:25)
[2016-10-08] MEDS: POLYTRIM OPHTH 10ML RIGHTEYE SCH ×5 (11:07→23:00)
[2016-10-08] MEDS: CARBAMIDE PEROXIDE EAR DROPS 6.5%, 15ML LEFT EAR PRN (11:08)
[2016-10-08 13:07] VITALS: BP 107/69
[2016-10-08] MEDS: NICOTINE 7 MG/24 HR PATCH.TD24 TD SCH (18:28)
[2016-10-08 19:07] VITALS: BP 101/63
[2016-10-08] MEDS: TRAZODONE 50MG TABLET PO SCH (20:24)
[2016-10-09] MEDS: POLYTRIM OPHTH 10ML RIGHTEYE SCH ×7 (01:41→19:59)
[2016-10-09 02:02] VITALS: BP 105/70
[2016-10-09] MEDS: morphine SULFATE 10 MG/ML, 1ML IVPush PRN ×3 (03:18→12:28)
[2016-10-09] MEDS: HYDROcodone/APAP 10/325 MG TABLET PO PRN (05:37)
[2016-10-09] MEDS: ENOXAPARIN 30 MG/0.3 ML SQ SCH ×2 (05:38→18:20)
[2016-10-09] MEDS: LEVOTHYROXINE 25 MCG TABLET PO SCH (05:38)
[2016-10-09 06:22] LABS: HEMOGLOBIN 11.2 g/dL (13.7-18.0); WHITE BLOOD COUNT 19.1 x10^3/uL (3.4-10)
[2016-10-09 06:43] LABS: ASPARTATE AMINO TRANSFERASE 19 U/L (15-37); BLOOD UREA NITROGEN 22 mg/dL (7-18)
[2016-10-09 07:08] VITALS: BP 100/62
[2016-10-09] MEDS: FAMOTIDINE 20 MG/2 ML IVPush SCH ×2 (08:55→19:59)
[2016-10-09] MEDS: PIPERACILLIN/TAZO/PMX 3.375GM 50 ML IV SCH ×2 (08:56→16:38)
[2016-10-09] MEDS: ASCORBIC ACID 500 MG TABLET PO SCH (08:56)
[2016-10-09] MEDS: LEVETIRACETAM 100 MG/ML ORAL SOL PO SCH ×2 (08:56→20:00)
[2016-10-09] MEDS: FERROUS SULFATE 220 MG/5 ML ORAL SOL PO SCH (08:56)
[2016-10-09] MEDS: FLUTICASONE/VILANTEROL 100-25MCG/INH INH SCH (08:57)
[2016-10-09] MEDS ORDERED: PHARMACOKINETIC MONITORING MC PRN (09:00)
[2016-10-09] MEDS ORDERED: VANCOMYCIN 1,100 MG in SODIUM CHLORIDE 0.9% 250 ML IV SCH (09:00)
[2016-10-09] MEDS ORDERED: PHARMACOKINETIC CONSULTATION MC ONE (09:00)
[2016-10-09] MEDS ORDERED: VANCOMYCIN PER PHARMACY MC PRN (09:00)
[2016-10-09] MEDS: VANCOMYCIN PMX 1GM/200ML 200 ML IV SCH (09:40)
[2016-10-09 15:27] VITALS: BP 98/62
[2016-10-09] MEDS: HYDROcodone/APAP 5/325 TABLET PO PRN ×2 (15:56→20:00)
[2016-10-09] MEDS: NICOTINE 7 MG/24 HR PATCH.TD24 TD SCH (16:39)
[2016-10-09] MEDS: MORPHINE SULFATE 4 MG/ML, 1ML IVPush PRN (18:21)
[2016-10-09 19:21] VITALS: BP 107/68
[2016-10-09] MEDS: TRAZODONE 50MG TABLET PO SCH (19:59)
[2016-10-09] MEDS ORDERED: morphine SULFATE 10 MG/ML, 1ML IVPush PRN (21:30)
[2016-10-10] MEDS: MORPHINE SULFATE 4 MG/ML, 1ML IVPush PRN ×4 (00:07→18:53)
[2016-10-10] MEDS: POLYTRIM OPHTH 10ML RIGHTEYE SCH ×9 (00:07→23:58)
[2016-10-10] MEDS: PIPERACILLIN/TAZO/PMX 3.375GM 50 ML IV SCH ×4 (00:08→23:58)
[2016-10-10 00:13] VITALS: BP 97/45
[2016-10-10] MEDS: HYDROcodone/APAP 5/325 TABLET PO PRN ×3 (02:57→20:58)
[2016-10-10] MEDS: ENOXAPARIN 30 MG/0.3 ML SQ SCH ×2 (06:02→18:25)
[2016-10-10] MEDS: LEVOTHYROXINE 25 MCG TABLET PO SCH (06:02)
[2016-10-10 07:26] VITALS: BP 100/62
[2016-10-10] MEDS: FLUTICASONE/VILANTEROL 100-25MCG/INH INH SCH (08:17)
[2016-10-10] MEDS: LEVETIRACETAM 100 MG/ML ORAL SOL PO SCH ×2 (08:18→20:58)
[2016-10-10] MEDS: FERROUS SULFATE 220 MG/5 ML ORAL SOL PO SCH (08:18)
[2016-10-10] MEDS: FAMOTIDINE 20 MG/2 ML IVPush SCH ×2 (08:18→20:58)
[2016-10-10] MEDS: ASCORBIC ACID 500 MG TABLET PO SCH (08:19)
[2016-10-10] MEDS: VANCOMYCIN PMX 1GM/200ML 200 ML IV SCH (10:05)
[2016-10-10 12:44] VITALS: BP 116/76
[2016-10-10] MEDS: NICOTINE 7 MG/24 HR PATCH.TD24 TD SCH (18:25)
[2016-10-10 19:03] VITALS: BP 113/68
[2016-10-10] MEDS: TRAZODONE 50MG TABLET PO SCH (20:58)
[2016-10-10] MEDS: HYDROcodone/APAP 10/325 MG TABLET PO PRN (23:58)
[2016-10-11] MEDS: MORPHINE SULFATE 4 MG/ML, 1ML IVPush PRN ×4 (00:58→19:49)
[2016-10-11 01:05] VITALS: BP 104/67
[2016-10-11] MEDS: POLYTRIM OPHTH 10ML RIGHTEYE SCH ×7 (03:48→21:03)
[2016-10-11 05:06] LABS: HEMATOCRIT 37.4 % (39.2-51.8); HEMOGLOBIN 11.8 g/dL (13.7-18.0); WHITE BLOOD COUNT 11.8 x10^3/uL (3.4-10)
[2016-10-11] MEDS: ENOXAPARIN 30 MG/0.3 ML SQ SCH ×2 (05:51→17:23)
[2016-10-11] MEDS: LEVOTHYROXINE 25 MCG TABLET PO SCH (06:00)
[2016-10-11 07:55] VITALS: BP 114/65
[2016-10-11] MEDS: PIPERACILLIN/TAZO/PMX 3.375GM 50 ML IV SCH ×2 (08:57→17:22)
[2016-10-11] MEDS: FAMOTIDINE 20 MG/2 ML IVPush SCH ×2 (08:59→21:03)
[2016-10-11] MEDS: VANCOMYCIN PMX 1GM/200ML 200 ML IV SCH (08:59)
[2016-10-11] MEDS: LEVETIRACETAM 100 MG/ML ORAL SOL PO SCH ×2 (09:00→21:04)
[2016-10-11] MEDS: ASCORBIC ACID 500 MG TABLET PO SCH (09:00)
[2016-10-11] MEDS: FERROUS SULFATE 220 MG/5 ML ORAL SOL PO SCH (09:00)
[2016-10-11] MEDS: HYDROcodone/APAP 10/325 MG TABLET PO PRN (09:14)
[2016-10-11] MEDS: FLUTICASONE/VILANTEROL 100-25MCG/INH INH SCH (12:18)
[2016-10-11 12:22] VITALS: BP 108/66
[2016-10-11] MEDS: NICOTINE 7 MG/24 HR PATCH.TD24 TD SCH (17:22)
[2016-10-11] MEDS: OXYcodone IR 5MG TABLET PO PRN ×2 (17:32→21:04)
[2016-10-11 19:05] VITALS: BP 102/65
[2016-10-11] MEDS: TRAZODONE 50MG TABLET PO SCH (21:04)
[2016-10-12] MEDS: PIPERACILLIN/TAZO/PMX 3.375GM 50 ML IV SCH ×3 (00:03→15:38)
[2016-10-12] MEDS: OXYcodone IR 5MG TABLET PO PRN ×3 (00:03→12:20)
[2016-10-12] MEDS: POLYTRIM OPHTH 10ML RIGHTEYE SCH ×8 (00:03→20:34)
[2016-10-12 00:17] VITALS: BP 116/75
[2016-10-12] MEDS: MORPHINE SULFATE 4 MG/ML, 1ML IVPush PRN ×2 (02:07→08:22)
[2016-10-12 05:19] LABS: HEMATOCRIT 36.7 % (39.2-51.8); HEMOGLOBIN 11.6 g/dL (13.7-18.0); WHITE BLOOD COUNT 11.6 x10^3/uL (3.4-10)
[2016-10-12 05:41] LABS: BLOOD UREA NITROGEN 18 mg/dL (7-18)
[2016-10-12] MEDS: ENOXAPARIN 30 MG/0.3 ML SQ SCH ×2 (05:49→17:31)
[2016-10-12] MEDS: LEVOTHYROXINE 25 MCG TABLET PO SCH (05:49)
[2016-10-12 07:22] VITALS: BP 93/65
[2016-10-12] MEDS: FAMOTIDINE 20 MG/2 ML IVPush SCH ×2 (08:21→20:34)
[2016-10-12] MEDS: FLUTICASONE/VILANTEROL 100-25MCG/INH INH SCH (08:21)
[2016-10-12] MEDS: LEVETIRACETAM 100 MG/ML ORAL SOL PO SCH ×2 (08:21→20:34)
[2016-10-12] MEDS: FERROUS SULFATE 220 MG/5 ML ORAL SOL PO SCH (08:21)
[2016-10-12] MEDS: ASCORBIC ACID 500 MG TABLET PO SCH (08:22)
[2016-10-12] MEDS: VANCOMYCIN PMX 1GM/200ML 200 ML IV SCH (11:08)
[2016-10-12 12:17] VITALS: BP 94/60
[2016-10-12] MEDS ORDERED: FENTANYL 12 MCG PATCH TD SCH (17:00)
[2016-10-12 17:28] VITALS: BP 95/59
[2016-10-12] MEDS: NICOTINE 7 MG/24 HR PATCH.TD24 TD SCH (17:31)
[2016-10-12] MEDS: TRAZODONE 50MG TABLET PO SCH (20:34)
[2016-10-12 20:45] VITALS: BP 93/49
[2016-10-13] MEDS: POLYTRIM OPHTH 10ML RIGHTEYE SCH ×9 (00:33→23:46)
[2016-10-13] MEDS: PIPERACILLIN/TAZO/PMX 3.375GM 50 ML IV SCH ×4 (00:33→23:45)
[2016-10-13 02:30] VITALS: BP 100/66
[2016-10-13] MEDS: LEVOTHYROXINE 25 MCG TABLET PO SCH (06:05)
[2016-10-13] MEDS: ENOXAPARIN 30 MG/0.3 ML SQ SCH ×2 (06:05→17:38)
[2016-10-13 08:30] VITALS: BP 94/60
[2016-10-13] MEDS: FLUTICASONE/VILANTEROL 100-25MCG/INH INH SCH (09:54)
[2016-10-13] MEDS: LEVETIRACETAM 100 MG/ML ORAL SOL PO SCH ×2 (09:55→20:28)
[2016-10-13] MEDS: ASCORBIC ACID 500 MG TABLET PO SCH (09:55)
[2016-10-13] MEDS: FERROUS SULFATE 220 MG/5 ML ORAL SOL PO SCH (09:56)
[2016-10-13] MEDS: FAMOTIDINE 20 MG/2 ML IVPush SCH ×2 (09:56→20:28)
[2016-10-13] MEDS: MORPHINE SULFATE 4 MG/ML, 1ML IVPush PRN ×3 (09:56→22:48)
[2016-10-13] MEDS: VANCOMYCIN PMX 1GM/200ML 200 ML IV SCH (10:08)
[2016-10-13] MEDS: OXYcodone IR 5MG TABLET PO PRN ×2 (14:19→20:28)
[2016-10-13] MEDS ORDERED: OMNIPAQUE 350 MG/ML, 100ML BOTTLE ONE (15:36)
[2016-10-13] MEDS: NICOTINE 7 MG/24 HR PATCH.TD24 TD SCH (17:38)
[2016-10-13 17:46] VITALS: BP 98/68
[2016-10-13 19:24] VITALS: BP 100/67
[2016-10-13] MEDS: TRAZODONE 50MG TABLET PO SCH (20:28)
[2016-10-14] MEDS: OXYcodone IR 5MG TABLET PO PRN ×3 (02:19→16:32)
[2016-10-14 02:20] VITALS: BP 101/66
[2016-10-14] MEDS: POLYTRIM OPHTH 10ML RIGHTEYE SCH ×2 (03:00→06:19)
[2016-10-14] MEDS: VANCOMYCIN 1,100 MG in SODIUM CHLORIDE 0.9% 250 ML IV SCH (03:45)
[2016-10-14] MEDS: MORPHINE SULFATE 4 MG/ML, 1ML IVPush PRN ×2 (06:19→14:10)
[2016-10-14] MEDS: ENOXAPARIN 30 MG/0.3 ML SQ SCH ×2 (06:19→18:18)
[2016-10-14] MEDS: LEVOTHYROXINE 25 MCG TABLET PO SCH (06:19)
[2016-10-14 07:07] VITALS: BP 95/59
[2016-10-14] MEDS ORDERED: FENTANYL 25 MCG PATCH TD SCH (08:00)
[2016-10-14] MEDS ORDERED: MINERAL OIL 10 ML VIAL MC SCH (08:00)
[2016-10-14] MEDS ORDERED: FENTANYL REMOVE PATCH NOTE XX ONE (08:30)
[2016-10-14] MEDS: LEVETIRACETAM 100 MG/ML ORAL SOL PO SCH ×2 (08:31→20:13)
[2016-10-14] MEDS: FAMOTIDINE 20 MG/2 ML IVPush SCH ×2 (08:31→20:13)
[2016-10-14] MEDS: FERROUS SULFATE 220 MG/5 ML ORAL SOL PO SCH (08:31)
[2016-10-14] MEDS: FLUTICASONE/VILANTEROL 100-25MCG/INH INH SCH (08:31)
[2016-10-14] MEDS: PIPERACILLIN/TAZO/PMX 3.375GM 50 ML IV SCH ×2 (08:31→16:32)
[2016-10-14] MEDS: ASCORBIC ACID 500 MG TABLET PO SCH (08:32)
[2016-10-14] MEDS: TOBRAMYCIN OPHTH 5ML OP SCH ×4 (09:42→20:33)
[2016-10-14 15:02] VITALS: BP 99/67
[2016-10-14] MEDS: NICOTINE 7 MG/24 HR PATCH.TD24 TD SCH (17:00)
[2016-10-14 19:02] VITALS: BP 100/58
[2016-10-14] MEDS: TRAZODONE 50MG TABLET PO SCH (20:13)
[2016-10-15] MEDS: PIPERACILLIN/TAZO/PMX 3.375GM 50 ML IV SCH ×4 (00:19→19:51)
[2016-10-15 00:36] VITALS: BP 100/64
[2016-10-15] MEDS: MORPHINE SULFATE 4 MG/ML, 1ML IVPush PRN ×3 (00:45→19:51)
[2016-10-15] MEDS: VANCOMYCIN 1,100 MG in SODIUM CHLORIDE 0.9% 250 ML IV SCH (03:56)
[2016-10-15] MEDS: ENOXAPARIN 30 MG/0.3 ML SQ SCH ×3 (06:00→19:52)
[2016-10-15 06:07] VITALS: BP 103/65
[2016-10-15] MEDS: TOBRAMYCIN OPHTH 5ML OP SCH ×5 (06:07→21:08)
[2016-10-15] MEDS: LEVOTHYROXINE 25 MCG TABLET PO SCH (06:08)
[2016-10-15] MEDS: FLUTICASONE/VILANTEROL 100-25MCG/INH INH SCH (07:55)
[2016-10-15] MEDS: ASCORBIC ACID 500 MG TABLET PO SCH (07:57)
[2016-10-15] MEDS: FERROUS SULFATE 220 MG/5 ML ORAL SOL PO SCH (07:57)
[2016-10-15] MEDS: LEVETIRACETAM 100 MG/ML ORAL SOL PO SCH ×2 (07:57→20:45)
[2016-10-15] MEDS: FAMOTIDINE 20 MG/2 ML IVPush SCH ×2 (08:04→20:38)
[2016-10-15] MEDS: OXYcodone IR 5MG TABLET PO PRN ×3 (08:29→20:45)
[2016-10-15 14:20] VITALS: BP 95/60
[2016-10-15] MEDS ORDERED: FENTANYL REMOVE PATCH NOTE XX SCH (17:00)
[2016-10-15 19:04] VITALS: BP 111/71
[2016-10-15] MEDS: NICOTINE 7 MG/24 HR PATCH.TD24 TD SCH ×2 (19:52→20:45)
[2016-10-15] MEDS: TRAZODONE 50MG TABLET PO SCH (20:46)
[2016-10-16 02:00] VITALS: BP 106/69
[2016-10-16] MEDS: VANCOMYCIN 1,100 MG in SODIUM CHLORIDE 0.9% 250 ML IV SCH (04:00)
[2016-10-16 05:25] LABS: HEMATOCRIT 34.9 % (39.2-51.8); HEMOGLOBIN 11.2 g/dL (13.7-18.0)
[2016-10-16 05:35] LABS: BLOOD UREA NITROGEN 21 mg/dL (7-18)
[2016-10-16] MEDS: ENOXAPARIN 30 MG/0.3 ML SQ SCH ×2 (05:39→16:26)
[2016-10-16] MEDS: LEVOTHYROXINE 25 MCG TABLET PO SCH (05:50)
[2016-10-16] MEDS: TOBRAMYCIN OPHTH 5ML OP SCH ×4 (05:50→21:32)
[2016-10-16] MEDS: OXYcodone IR 5MG TABLET PO PRN ×3 (05:50→21:32)
[2016-10-16 07:07] VITALS: BP 104/66
[2016-10-16] MEDS: PIPERACILLIN/TAZO/PMX 3.375GM 50 ML IV SCH ×3 (08:00→16:00)
[2016-10-16] MEDS: LEVETIRACETAM 100 MG/ML ORAL SOL PO SCH ×2 (08:07→21:32)
[2016-10-16] MEDS: FERROUS SULFATE 220 MG/5 ML ORAL SOL PO SCH (08:08)
[2016-10-16] MEDS: ASCORBIC ACID 500 MG TABLET PO SCH (08:09)
[2016-10-16] MEDS: FAMOTIDINE 20 MG/2 ML IVPush SCH ×2 (08:09→21:00)
[2016-10-16] MEDS: FLUTICASONE/VILANTEROL 100-25MCG/INH INH SCH (08:09)
[2016-10-16] MEDS: METHOCARBAMOL 500 MG TABLET PO PRN (09:17)
[2016-10-16 14:00] VITALS: BP 94/58
[2016-10-16] MEDS: NICOTINE 7 MG/24 HR PATCH.TD24 TD SCH (17:43)
[2016-10-16 20:00] VITALS: BP 88/60
[2016-10-16] MEDS: TRAZODONE 50MG TABLET PO SCH (21:31)
[2016-10-16] MEDS: FAMOTIDINE 20 MG TABLET PO SCH (21:31)
[2016-10-17 01:19] VITALS: BP 108/67
[2016-10-17] MEDS: ENOXAPARIN 30 MG/0.3 ML SQ SCH ×2 (05:35→18:00)
[2016-10-17] MEDS: LEVOTHYROXINE 25 MCG TABLET PO SCH (05:36)
[2016-10-17] MEDS: OXYcodone IR 5MG TABLET PO PRN ×3 (05:36→20:48)
[2016-10-17] MEDS: TOBRAMYCIN OPHTH 5ML OP SCH ×4 (05:37→20:48)
[2016-10-17 07:59] VITALS: BP 101/66
[2016-10-17] MEDS: FENTANYL 12 MCG PATCH TD SCH (08:00)
[2016-10-17] MEDS: FENTANYL REMOVE PATCH NOTE XX SCH (08:00)
[2016-10-17] MEDS: FENTANYL 25 MCG PATCH TD SCH (08:27)
[2016-10-17] MEDS: FAMOTIDINE 20 MG TABLET PO SCH ×2 (08:29→20:48)
[2016-10-17] MEDS: LEVETIRACETAM 100 MG/ML ORAL SOL PO SCH ×2 (08:29→20:48)
[2016-10-17] MEDS: FERROUS SULFATE 220 MG/5 ML ORAL SOL PO SCH (08:29)
[2016-10-17] MEDS: ASCORBIC ACID 500 MG TABLET PO SCH (08:29)
[2016-10-17] MEDS: FLUTICASONE/VILANTEROL 100-25MCG/INH INH SCH (08:39)
[2016-10-17 12:58] VITALS: BP 95/62
[2016-10-17] MEDS: NICOTINE 7 MG/24 HR PATCH.TD24 TD SCH (16:35)
[2016-10-17 19:59] VITALS: BP 99/65
[2016-10-17] MEDS: TRAZODONE 50MG TABLET PO SCH (20:48)
[2016-10-18] MEDS: OXYcodone IR 5MG TABLET PO PRN ×4 (00:39→18:32)
[2016-10-18 01:45] VITALS: BP 95/65
[2016-10-18] MEDS: TOBRAMYCIN OPHTH 5ML OP SCH ×4 (06:00→20:16)
[2016-10-18] MEDS: LEVOTHYROXINE 25 MCG TABLET PO SCH (06:00)
[2016-10-18] MEDS: ENOXAPARIN 30 MG/0.3 ML SQ SCH ×3 (06:00→17:14)
[2016-10-18 07:15] VITALS: BP 99/64
[2016-10-18] MEDS: ASCORBIC ACID 500 MG TABLET PO SCH (10:01)
[2016-10-18] MEDS: LEVETIRACETAM 100 MG/ML ORAL SOL PO SCH ×2 (10:01→20:16)
[2016-10-18] MEDS: METHOCARBAMOL 500 MG TABLET PO PRN (10:01)
[2016-10-18] MEDS: FERROUS SULFATE 220 MG/5 ML ORAL SOL PO SCH (10:01)
[2016-10-18] MEDS: FAMOTIDINE 20 MG TABLET PO SCH ×2 (10:01→20:16)
[2016-10-18] MEDS: FLUTICASONE/VILANTEROL 100-25MCG/INH INH SCH (10:01)
[2016-10-18 12:53] VITALS: BP 97/68
[2016-10-18] MEDS: NICOTINE 7 MG/24 HR PATCH.TD24 TD SCH (17:09)
[2016-10-18 18:44] VITALS: BP 93/54
[2016-10-18] MEDS: TRAZODONE 50MG TABLET PO SCH (20:16)
[2016-10-19] MEDS: OXYcodone IR 5MG TABLET PO PRN ×5 (00:05→20:09)
[2016-10-19 01:36] VITALS: BP 102/60
[2016-10-19 05:32] LABS: HEMATOCRIT 33.9 % (39.2-51.8); HEMOGLOBIN 10.7 g/dL (13.7-18.0); WHITE BLOOD COUNT 5.3 x10^3/uL (3.4-10)
[2016-10-19 05:35] LABS: BLOOD UREA NITROGEN 22 mg/dL (7-18)
[2016-10-19] MEDS: LEVOTHYROXINE 25 MCG TABLET PO SCH (05:37)
[2016-10-19] MEDS: TOBRAMYCIN OPHTH 5ML OP SCH (05:37)
[2016-10-19] MEDS: ENOXAPARIN 30 MG/0.3 ML SQ SCH ×3 (05:38→16:10)
[2016-10-19 06:50] VITALS: BP 96/64
[2016-10-19] MEDS: FAMOTIDINE 20 MG TABLET PO SCH ×2 (10:26→20:09)
[2016-10-19] MEDS: LEVETIRACETAM 100 MG/ML ORAL SOL PO SCH ×2 (10:26→20:09)
[2016-10-19] MEDS: FERROUS SULFATE 220 MG/5 ML ORAL SOL PO SCH (10:26)
[2016-10-19] MEDS: FLUTICASONE/VILANTEROL 100-25MCG/INH INH SCH (10:26)
[2016-10-19] MEDS: ASCORBIC ACID 500 MG TABLET PO SCH (10:26)
[2016-10-19 13:32] VITALS: BP 99/64
[2016-10-19] MEDS: SENNA/DOCUSATE TABLET PO PRN (16:09)
[2016-10-19] MEDS: NICOTINE 7 MG/24 HR PATCH.TD24 TD SCH (16:09)
[2016-10-19 18:45] VITALS: BP 90/54
[2016-10-19] MEDS: TRAZODONE 50MG TABLET PO SCH (20:09)
[2016-10-20 01:11] VITALS: BP 98/64
[2016-10-20] MEDS: OXYcodone IR 5MG TABLET PO PRN ×5 (01:23→17:17)
[2016-10-20] MEDS: LEVOTHYROXINE 25 MCG TABLET PO SCH (05:28)
[2016-10-20] MEDS: ENOXAPARIN 30 MG/0.3 ML SQ SCH ×2 (05:33→17:05)
[2016-10-20 07:31] VITALS: BP 101/66
[2016-10-20] MEDS: FENTANYL REMOVE PATCH NOTE XX SCH ×2 (08:00)
[2016-10-20] MEDS: FENTANYL 12 MCG PATCH TD SCH (08:00)
[2016-10-20] MEDS: FERROUS SULFATE 220 MG/5 ML ORAL SOL PO SCH (08:40)
[2016-10-20] MEDS: ASCORBIC ACID 500 MG TABLET PO SCH (08:40)
[2016-10-20] MEDS: LEVETIRACETAM 100 MG/ML ORAL SOL PO SCH ×2 (08:40→22:51)
[2016-10-20] MEDS: FAMOTIDINE 20 MG TABLET PO SCH ×2 (08:41→22:52)
[2016-10-20] MEDS: FLUTICASONE/VILANTEROL 100-25MCG/INH INH SCH (08:41)
[2016-10-20] MEDS: METHOCARBAMOL 500 MG TABLET PO PRN (08:58)
[2016-10-20] MEDS: SENNA/DOCUSATE TABLET PO PRN (08:59)
[2016-10-20] MEDS: FENTANYL 25 MCG PATCH TD SCH (09:03)
[2016-10-20] MEDS ORDERED: DULOXETINE 20 MG CAPSULE.DR PO SCH (11:30)
[2016-10-20 13:15] VITALS: BP 99/61
[2016-10-20] MEDS: NICOTINE 7 MG/24 HR PATCH.TD24 TD SCH ×2 (17:00→17:15)
[2016-10-20 18:37] VITALS: BP 94/66
[2016-10-20] MEDS: TRAZODONE 50MG TABLET PO SCH (22:52)
[2016-10-21 02:00] VITALS: BP 107/75
[2016-10-21] MEDS: LEVOTHYROXINE 25 MCG TABLET PO SCH (06:09)
[2016-10-21] MEDS: ENOXAPARIN 30 MG/0.3 ML SQ SCH ×2 (06:09→17:09)
[2016-10-21] MEDS: OXYcodone IR 5MG TABLET PO PRN ×4 (06:09→19:44)
[2016-10-21] MEDS: FERROUS SULFATE 220 MG/5 ML ORAL SOL PO SCH (09:12)
[2016-10-21] MEDS: FAMOTIDINE 20 MG TABLET PO SCH ×2 (09:13→19:43)
[2016-10-21] MEDS: LEVETIRACETAM 100 MG/ML ORAL SOL PO SCH ×2 (09:13→19:43)
[2016-10-21] MEDS: ASCORBIC ACID 500 MG TABLET PO SCH (09:13)
[2016-10-21] MEDS: FLUTICASONE/VILANTEROL 100-25MCG/INH INH SCH (09:13)
[2016-10-21] MEDS: METHOCARBAMOL 500 MG TABLET PO PRN ×2 (09:13→15:33)
[2016-10-21 09:18] VITALS: BP 109/74
[2016-10-21 14:59] VITALS: BP 96/63
[2016-10-21] MEDS: NICOTINE 7 MG/24 HR PATCH.TD24 TD SCH ×2 (18:20→18:24)
[2016-10-21 18:33] VITALS: BP 96/61
[2016-10-21] MEDS: TRAZODONE 50MG TABLET PO SCH (19:43)
[2016-10-22 01:17] VITALS: BP 100/60
[2016-10-22] MEDS: OXYcodone IR 5MG TABLET PO PRN ×5 (01:52→21:35)
[2016-10-22] MEDS: ENOXAPARIN 30 MG/0.3 ML SQ SCH ×2 (05:41→17:54)
[2016-10-22] MEDS: LEVOTHYROXINE 25 MCG TABLET PO SCH (05:41)
[2016-10-22 09:04] VITALS: BP 94/59
[2016-10-22] MEDS: FLUTICASONE/VILANTEROL 100-25MCG/INH INH SCH (10:23)
[2016-10-22] MEDS: FAMOTIDINE 20 MG TABLET PO SCH ×2 (10:24→21:35)
[2016-10-22] MEDS: FERROUS SULFATE 220 MG/5 ML ORAL SOL PO SCH (10:24)
[2016-10-22] MEDS: LEVETIRACETAM 100 MG/ML ORAL SOL PO SCH ×2 (10:24→21:35)
[2016-10-22] MEDS: ASCORBIC ACID 500 MG TABLET PO SCH (10:25)
[2016-10-22] MEDS: METHOCARBAMOL 500 MG TABLET PO PRN (10:25)
[2016-10-22 14:15] VITALS: BP 98/63
[2016-10-22] MEDS: NICOTINE 7 MG/24 HR PATCH.TD24 TD SCH (17:54)
[2016-10-22 19:47] VITALS: BP 99/57
[2016-10-22] MEDS: TRAZODONE 50MG TABLET PO SCH (21:35)
[2016-10-22] MEDS: POLYETHYLENE GLYCOL 17 GM PACKET PO PRN (22:05)
[2016-10-23] MEDS: OXYcodone IR 5MG TABLET PO PRN ×3 (01:27→18:28)
[2016-10-23 01:45] VITALS: BP 93/60
[2016-10-23] MEDS: LEVOTHYROXINE 25 MCG TABLET PO SCH (05:35)
[2016-10-23] MEDS: ENOXAPARIN 30 MG/0.3 ML SQ SCH ×2 (05:36→17:47)
[2016-10-23] MEDS: FLUTICASONE/VILANTEROL 100-25MCG/INH INH SCH (10:01)
[2016-10-23] MEDS: ASCORBIC ACID 500 MG TABLET PO SCH (10:01)
[2016-10-23] MEDS: FAMOTIDINE 20 MG TABLET PO SCH ×2 (10:01→20:48)
[2016-10-23] MEDS: LEVETIRACETAM 100 MG/ML ORAL SOL PO SCH ×2 (10:01→20:48)
[2016-10-23] MEDS: FERROUS SULFATE 220 MG/5 ML ORAL SOL PO SCH (10:01)
[2016-10-23] MEDS: METHOCARBAMOL 500 MG TABLET PO PRN (10:01)
[2016-10-23] MEDS: FENTANYL 25 MCG PATCH TD SCH (11:12)
[2016-10-23] MEDS: FENTANYL 12 MCG PATCH TD SCH (11:13)
[2016-10-23] MEDS: FENTANYL REMOVE PATCH NOTE XX SCH ×2 (11:13)
[2016-10-23 14:00] VITALS: BP 96/62
[2016-10-23] MEDS ORDERED: DOCUSATE 100 MG CAPSULE PO PRN (16:00)
[2016-10-23] MEDS ORDERED: ALBUTEROL SULFATE 2.5 MG/3 ML NPPB PRN ×2 (16:00)
[2016-10-23] MEDS ORDERED: ONDANSETRON 2MG/ML, 2ML IVPush PRN (16:00)
[2016-10-23] MEDS ORDERED: BISACODYL 10 MG SUPP PR PRN (16:00)
[2016-10-23] MEDS ORDERED: CARBAMIDE PEROXIDE EAR DROPS 6.5%, 15ML LEFT EAR PRN (16:00)
[2016-10-23] MEDS ORDERED: ENALAPRILAT 1.25 MG/ML, 2ML IVPush PRN (16:00)
[2016-10-23] MEDS ORDERED: ACETAMINOPHEN 325 MG TABLET PO PRN (16:00)
[2016-10-23] MEDS: NICOTINE 7 MG/24 HR PATCH.TD24 TD SCH (17:48)
[2016-10-23 19:40] VITALS: BP 96/62
[2016-10-23] MEDS: TRAZODONE 50MG TABLET PO SCH (20:48)
[2016-10-24 02:17] VITALS: BP 95/61
[2016-10-24] MEDS: OXYcodone IR 5MG TABLET PO PRN ×5 (02:41→22:54)
[2016-10-24] MEDS: LEVOTHYROXINE 25 MCG TABLET PO SCH (05:38)
[2016-10-24] MEDS: ENOXAPARIN 30 MG/0.3 ML SQ SCH ×2 (05:40→16:43)
[2016-10-24 07:09] VITALS: BP 91/57
[2016-10-24] MEDS: FLUTICASONE/VILANTEROL 100-25MCG/INH INH SCH (09:09)
[2016-10-24] MEDS: FERROUS SULFATE 220 MG/5 ML ORAL SOL PO SCH (09:10)
[2016-10-24] MEDS: ASCORBIC ACID 500 MG TABLET PO SCH (09:10)
[2016-10-24] MEDS: METHOCARBAMOL 500 MG TABLET PO PRN ×2 (09:10→19:52)
[2016-10-24] MEDS: LEVETIRACETAM 100 MG/ML ORAL SOL PO SCH ×2 (09:10→19:51)
[2016-10-24] MEDS: FAMOTIDINE 20 MG TABLET PO SCH ×2 (09:10→19:51)
[2016-10-24 12:20] VITALS: BP 92/60
[2016-10-24] MEDS: NICOTINE 7 MG/24 HR PATCH.TD24 TD SCH (16:55)
[2016-10-24 19:40] VITALS: BP 100/70
[2016-10-24] MEDS: TRAZODONE 50MG TABLET PO SCH (19:51)
[2016-10-25 01:38] VITALS: BP 103/67
[2016-10-25] MEDS: OXYcodone IR 5MG TABLET PO PRN ×4 (02:55→18:50)
[2016-10-25] MEDS: LEVOTHYROXINE 25 MCG TABLET PO SCH (05:54)
[2016-10-25] MEDS: ENOXAPARIN 30 MG/0.3 ML SQ SCH ×2 (06:00→18:39)
[2016-10-25 09:00] VITALS: BP 92/57
[2016-10-25] MEDS: FAMOTIDINE 20 MG TABLET PO SCH ×2 (09:32→19:28)
[2016-10-25] MEDS: ASCORBIC ACID 500 MG TABLET PO SCH (09:33)
[2016-10-25] MEDS: LEVETIRACETAM 100 MG/ML ORAL SOL PO SCH ×2 (09:33→19:29)
[2016-10-25] MEDS: FERROUS SULFATE 220 MG/5 ML ORAL SOL PO SCH (09:33)
[2016-10-25] MEDS: FLUTICASONE/VILANTEROL 100-25MCG/INH INH SCH (09:34)
[2016-10-25 14:56] VITALS: BP 94/60
[2016-10-25] MEDS: NICOTINE 7 MG/24 HR PATCH.TD24 TD SCH (18:39)
[2016-10-25] MEDS: METHOCARBAMOL 500 MG TABLET PO PRN (19:28)
[2016-10-25] MEDS: TRAZODONE 50MG TABLET PO SCH (19:28)
[2016-10-25 20:00] VITALS: BP 89/54
[2016-10-26] MEDS: OXYcodone IR 5MG TABLET PO PRN ×3 (01:59→17:32)
[2016-10-26] MEDS: METHOCARBAMOL 500 MG TABLET PO PRN (01:59)
[2016-10-26 02:00] VITALS: BP 98/65
[2016-10-26] MEDS: DIPHENHYDRAMINE/ZINC CRM 2%, 30GM TP PRN (02:42)
[2016-10-26] MEDS: ENOXAPARIN 30 MG/0.3 ML SQ SCH ×2 (05:13→17:25)
[2016-10-26] MEDS: LEVOTHYROXINE 25 MCG TABLET PO SCH (05:53)
[2016-10-26 07:10] VITALS: BP 92/59
[2016-10-26] MEDS: FENTANYL REMOVE PATCH NOTE XX SCH ×2 (08:00)
[2016-10-26] MEDS: FENTANYL 12 MCG PATCH TD SCH (08:00)
[2016-10-26] MEDS: FERROUS SULFATE 220 MG/5 ML ORAL SOL PO SCH (09:10)
[2016-10-26] MEDS: FLUTICASONE/VILANTEROL 100-25MCG/INH INH SCH (09:10)
[2016-10-26] MEDS: ASCORBIC ACID 500 MG TABLET PO SCH (09:11)
[2016-10-26] MEDS: LEVETIRACETAM 100 MG/ML ORAL SOL PO SCH (09:11)
[2016-10-26] MEDS: FAMOTIDINE 20 MG TABLET PO SCH (09:11)
[2016-10-26] MEDS: FENTANYL 25 MCG PATCH TD SCH (09:34)
[2016-10-26 14:34] VITALS: BP 97/57
[2016-10-26] MEDS: NICOTINE 7 MG/24 HR PATCH.TD24 TD SCH (17:00)
[2016-10-26 19:30] VITALS: BP 91/55
[2016-10-27] MEDS: LEVETIRACETAM 100 MG/ML ORAL SOL PO SCH ×3 (00:01→20:02)
[2016-10-27] MEDS: TRAZODONE 50MG TABLET PO SCH ×2 (00:01→20:02)
[2016-10-27] MEDS: FAMOTIDINE 20 MG TABLET PO SCH ×3 (00:01→20:02)
[2016-10-27 02:42] VITALS: BP 103/60
[2016-10-27] MEDS: OXYcodone IR 5MG TABLET PO PRN ×3 (03:11→20:02)
[2016-10-27] MEDS: ENOXAPARIN 30 MG/0.3 ML SQ SCH ×2 (06:00→15:57)
[2016-10-27] MEDS: LEVOTHYROXINE 25 MCG TABLET PO SCH (06:36)
[2016-10-27 06:40] VITALS: BP 92/63
[2016-10-27] MEDS: FLUTICASONE/VILANTEROL 100-25MCG/INH INH SCH (10:47)
[2016-10-27] MEDS: FERROUS SULFATE 220 MG/5 ML ORAL SOL PO SCH (10:47)
[2016-10-27] MEDS: ASCORBIC ACID 500 MG TABLET PO SCH (10:47)
[2016-10-27 14:30] VITALS: BP 96/53
[2016-10-27] MEDS: NICOTINE 7 MG/24 HR PATCH.TD24 TD SCH (16:06)
[2016-10-27 20:40] VITALS: BP 101/59
[2016-10-28 02:59] VITALS: BP 93/53
[2016-10-28] MEDS: LEVOTHYROXINE 25 MCG TABLET PO SCH (06:45)
[2016-10-28] MEDS: OXYcodone IR 5MG TABLET PO PRN ×4 (06:45→19:26)
[2016-10-28] MEDS: ENOXAPARIN 30 MG/0.3 ML SQ SCH ×2 (06:45→17:27)
[2016-10-28 07:27] VITALS: BP 86/54
[2016-10-28] MEDS: ASCORBIC ACID 500 MG TABLET PO SCH (10:11)
[2016-10-28] MEDS: LEVETIRACETAM 100 MG/ML ORAL SOL PO SCH ×2 (10:11→21:18)
[2016-10-28] MEDS: FAMOTIDINE 20 MG TABLET PO SCH ×2 (10:11→21:18)
[2016-10-28] MEDS: FLUTICASONE/VILANTEROL 100-25MCG/INH INH SCH (10:11)
[2016-10-28] MEDS: FERROUS SULFATE 220 MG/5 ML ORAL SOL PO SCH (10:11)
[2016-10-28] MEDS: POLYETHYLENE GLYCOL 17 GM PACKET PO PRN (10:53)
[2016-10-28] MEDS: NICOTINE 7 MG/24 HR PATCH.TD24 TD SCH (14:23)
[2016-10-28] MEDS: DIPHENHYDRAMINE/ZINC CRM 2%, 30GM TP PRN (14:24)
[2016-10-28 14:25] VITALS: BP 101/66
[2016-10-28] MEDS: TRAZODONE 50MG TABLET PO SCH (21:18)
[2016-10-28 21:47] VITALS: BP 96/56
[2016-10-29 01:38] VITALS: BP 113/68
[2016-10-29] MEDS: OXYcodone IR 5MG TABLET PO PRN ×3 (04:05→22:04)
[2016-10-29] MEDS: ENOXAPARIN 30 MG/0.3 ML SQ SCH ×2 (06:00→18:00)
[2016-10-29] MEDS: LEVOTHYROXINE 25 MCG TABLET PO SCH (06:01)
[2016-10-29 06:17] VITALS: BP 92/60
[2016-10-29] MEDS: FENTANYL 12 MCG PATCH TD SCH (08:00)
[2016-10-29] MEDS: ASCORBIC ACID 500 MG TABLET PO SCH (09:42)
[2016-10-29] MEDS: FERROUS SULFATE 220 MG/5 ML ORAL SOL PO SCH (09:42)
[2016-10-29] MEDS: FAMOTIDINE 20 MG TABLET PO SCH ×2 (09:42→22:04)
[2016-10-29] MEDS: LEVETIRACETAM 100 MG/ML ORAL SOL PO SCH ×2 (09:42→22:03)
[2016-10-29] MEDS: FLUTICASONE/VILANTEROL 100-25MCG/INH INH SCH (09:42)
[2016-10-29] MEDS: FENTANYL 25 MCG PATCH TD SCH (09:43)
[2016-10-29] MEDS: FENTANYL REMOVE PATCH NOTE XX SCH ×2 (09:45)
[2016-10-29 15:42] VITALS: BP 105/70
[2016-10-29] MEDS: NICOTINE 7 MG/24 HR PATCH.TD24 TD SCH (18:11)
[2016-10-29] MEDS ORDERED: ACETAMINOPHEN 325 MG TABLET PO PRN (18:30)
[2016-10-29] MEDS ORDERED: DOCUSATE 100 MG CAPSULE PO PRN (18:30)
[2016-10-29] MEDS ORDERED: ONDANSETRON 2MG/ML, 2ML IVPush PRN (18:30)
[2016-10-29] MEDS ORDERED: BISACODYL 10 MG SUPP PR PRN (18:30)
[2016-10-29] MEDS ORDERED: ENALAPRILAT 1.25 MG/ML, 2ML IVPush PRN (18:30)
[2016-10-29] MEDS ORDERED: ALBUTEROL SULFATE 2.5 MG/3 ML NPPB PRN ×2 (18:30)
[2016-10-29] MEDS ORDERED: CARBAMIDE PEROXIDE EAR DROPS 6.5%, 15ML LEFT EAR PRN (18:30)
[2016-10-29 19:00] VITALS: BP 96/57
[2016-10-29] MEDS: TRAZODONE 50MG TABLET PO SCH (22:04)
[2016-10-30 01:34] VITALS: BP 93/59
[2016-10-30] MEDS: OXYcodone IR 5MG TABLET PO PRN ×3 (03:17→19:37)
[2016-10-30] MEDS: ENOXAPARIN 30 MG/0.3 ML SQ SCH ×2 (05:48→16:42)
[2016-10-30] MEDS: LEVOTHYROXINE 25 MCG TABLET PO SCH (05:48)
[2016-10-30 07:10] VITALS: BP 92/55
[2016-10-30] MEDS: ASCORBIC ACID 500 MG TABLET PO SCH (08:42)
[2016-10-30] MEDS: LEVETIRACETAM 100 MG/ML ORAL SOL PO SCH ×2 (08:42→19:37)
[2016-10-30] MEDS: FERROUS SULFATE 220 MG/5 ML ORAL SOL PO SCH (08:42)
[2016-10-30] MEDS: FLUTICASONE/VILANTEROL 100-25MCG/INH INH SCH (08:42)
[2016-10-30] MEDS: FAMOTIDINE 20 MG TABLET PO SCH ×2 (08:49→19:37)
[2016-10-30 16:38] VITALS: BP 87/59
[2016-10-30] MEDS: NICOTINE 7 MG/24 HR PATCH.TD24 TD SCH (16:42)
[2016-10-30 18:55] VITALS: BP 95/64
[2016-10-30] MEDS: TRAZODONE 50MG TABLET PO SCH (19:37)
[2016-10-31 00:04] VITALS: BP 93/60
[2016-10-31] MEDS: OXYcodone IR 5MG TABLET PO PRN ×3 (04:59→21:40)
[2016-10-31] MEDS: LEVOTHYROXINE 25 MCG TABLET PO SCH (05:50)
[2016-10-31] MEDS: ENOXAPARIN 30 MG/0.3 ML SQ SCH ×2 (05:50→16:32)
[2016-10-31 08:11] VITALS: BP 90/49
[2016-10-31] MEDS: LEVETIRACETAM 100 MG/ML ORAL SOL PO SCH ×2 (11:25→21:40)
[2016-10-31] MEDS: FERROUS SULFATE 220 MG/5 ML ORAL SOL PO SCH (11:25)
[2016-10-31] MEDS: FAMOTIDINE 20 MG TABLET PO SCH ×2 (11:25→20:06)
[2016-10-31] MEDS: ASCORBIC ACID 500 MG TABLET PO SCH (11:25)
[2016-10-31] MEDS: FLUTICASONE/VILANTEROL 100-25MCG/INH INH SCH (11:25)
[2016-10-31 11:36] VITALS: BP 94/60
[2016-10-31] MEDS ORDERED: LIDOCAINE 2% VISCOUS 15 ML UDC MM PRN (12:30)
[2016-10-31] MEDS ORDERED: ACETAMINOPHEN 650 MG/20.3 ML UDC PEG PRN (12:30)
[2016-10-31 16:29] VITALS: BP 100/64
[2016-10-31] MEDS: NICOTINE 7 MG/24 HR PATCH.TD24 TD SCH (16:31)
[2016-10-31 19:03] VITALS: BP 102/62
[2016-10-31] MEDS: TRAZODONE 50MG TABLET PO SCH (20:06)
[2016-11-01 03:22] VITALS: BP 100/61
[2016-11-01] MEDS: OXYcodone IR 5MG TABLET PO PRN ×3 (03:38→21:49)
[2016-11-01] MEDS: ENOXAPARIN 30 MG/0.3 ML SQ SCH ×2 (05:41→06:00)
[2016-11-01] MEDS: LEVOTHYROXINE 25 MCG TABLET PO SCH (05:41)
[2016-11-01 07:23] VITALS: BP 105/63
[2016-11-01] MEDS: FLUTICASONE/VILANTEROL 100-25MCG/INH INH SCH (09:00)
[2016-11-01] MEDS: LEVETIRACETAM 100 MG/ML ORAL SOL PO SCH ×2 (10:15→21:49)
[2016-11-01] MEDS: FENTANYL 12 MCG PATCH TD SCH (10:15)
[2016-11-01] MEDS: FAMOTIDINE 20 MG TABLET PO SCH ×2 (10:15→21:49)
[2016-11-01] MEDS: FENTANYL 25 MCG PATCH TD SCH (10:15)
[2016-11-01] MEDS: FENTANYL REMOVE PATCH NOTE XX SCH ×2 (10:15)
[2016-11-01] MEDS: FERROUS SULFATE 220 MG/5 ML ORAL SOL PO SCH (10:15)
[2016-11-01] MEDS: ASCORBIC ACID 500 MG TABLET PO SCH (10:15)
[2016-11-01 13:50] VITALS: BP 92/55
[2016-11-01] MEDS: NICOTINE 7 MG/24 HR PATCH.TD24 TD SCH (15:45)
[2016-11-01 19:39] VITALS: BP 95/60
[2016-11-01] MEDS: TRAZODONE 50MG TABLET PO SCH (21:49)
[2016-11-02 01:29] VITALS: BP 92/55
[2016-11-02] MEDS: OXYcodone IR 5MG TABLET PO PRN ×3 (05:57→21:14)
[2016-11-02] MEDS: LEVOTHYROXINE 25 MCG TABLET PO SCH (05:57)
[2016-11-02] MEDS: ENOXAPARIN 30 MG/0.3 ML SQ SCH ×2 (05:57→17:08)
[2016-11-02 07:33] VITALS: BP 90/54
[2016-11-02] MEDS: FLUTICASONE/VILANTEROL 100-25MCG/INH INH SCH (09:36)
[2016-11-02] MEDS: ASCORBIC ACID 500 MG TABLET PO SCH (09:36)
[2016-11-02] MEDS: FAMOTIDINE 20 MG TABLET PO SCH ×2 (09:36→21:14)
[2016-11-02] MEDS: LEVETIRACETAM 100 MG/ML ORAL SOL PO SCH ×2 (09:36→21:14)
[2016-11-02] MEDS: FERROUS SULFATE 220 MG/5 ML ORAL SOL PO SCH (09:36)
[2016-11-02 14:14] VITALS: BP 96/60
[2016-11-02] MEDS: METHOCARBAMOL 500 MG TABLET PO PRN (17:07)
[2016-11-02] MEDS: NICOTINE 7 MG/24 HR PATCH.TD24 TD SCH (17:07)
[2016-11-02 19:00] VITALS: BP 97/60
[2016-11-02] MEDS: TRAZODONE 50MG TABLET PO SCH (21:14)
[2016-11-03] MEDS: OXYcodone IR 5MG TABLET PO PRN ×6 (00:56→21:51)
[2016-11-03 01:03] VITALS: BP 104/62
[2016-11-03 05:51] LABS: HEMATOCRIT 37.9 % (39.2-51.8); HEMOGLOBIN 12.2 g/dL (13.7-18.0); WHITE BLOOD COUNT 5.1 x10^3/uL (3.4-10)
[2016-11-03 06:00] LABS: BLOOD UREA NITROGEN 20 mg/dL (7-18)
[2016-11-03] MEDS: ENOXAPARIN 30 MG/0.3 ML SQ SCH ×2 (06:00→18:00)
[2016-11-03 06:03] LABS: ASPARTATE AMINO TRANSFERASE 46 U/L (15-37)
[2016-11-03] MEDS: LEVOTHYROXINE 25 MCG TABLET PO SCH (06:11)
[2016-11-03 07:07] VITALS: BP 91/57
[2016-11-03] MEDS: LEVETIRACETAM 100 MG/ML ORAL SOL PO SCH ×2 (09:59→21:52)
[2016-11-03] MEDS: FLUTICASONE/VILANTEROL 100-25MCG/INH INH SCH (09:59)
[2016-11-03] MEDS: FAMOTIDINE 20 MG TABLET PO SCH ×2 (09:59→21:52)
[2016-11-03] MEDS: FERROUS SULFATE 220 MG/5 ML ORAL SOL PO SCH (09:59)
[2016-11-03] MEDS: METHOCARBAMOL 500 MG TABLET PO PRN (10:00)
[2016-11-03] MEDS: ASCORBIC ACID 500 MG TABLET PO SCH (10:00)
[2016-11-03 13:48] VITALS: BP 99/64
[2016-11-03] MEDS: NICOTINE 7 MG/24 HR PATCH.TD24 TD SCH (17:52)
[2016-11-03 19:37] VITALS: BP 91/55
[2016-11-03] MEDS: TRAZODONE 50MG TABLET PO SCH (21:52)
[2016-11-04] MEDS: OXYcodone IR 5MG TABLET PO PRN ×6 (01:07→20:37)
[2016-11-04 01:54] VITALS: BP 98/56
[2016-11-04] MEDS: ENOXAPARIN 30 MG/0.3 ML SQ SCH ×2 (06:00→16:46)
[2016-11-04] MEDS: LEVOTHYROXINE 25 MCG TABLET PO SCH (06:09)
[2016-11-04 06:58] VITALS: BP 96/58
[2016-11-04] MEDS: FENTANYL 12 MCG PATCH TD SCH (08:00)
[2016-11-04 08:01] VITALS: BP 101/63
[2016-11-04] MEDS: FENTANYL REMOVE PATCH NOTE XX SCH ×2 (08:15)
[2016-11-04] MEDS: FLUTICASONE/VILANTEROL 100-25MCG/INH INH SCH (08:16)
[2016-11-04] MEDS: LEVETIRACETAM 100 MG/ML ORAL SOL PO SCH ×2 (08:16→20:37)
[2016-11-04] MEDS: FERROUS SULFATE 220 MG/5 ML ORAL SOL PO SCH (08:16)
[2016-11-04] MEDS: FAMOTIDINE 20 MG TABLET PO SCH ×2 (08:17→20:38)
[2016-11-04] MEDS: ASCORBIC ACID 500 MG TABLET PO SCH (08:17)
[2016-11-04] MEDS: METHOCARBAMOL 500 MG TABLET PO PRN (08:17)
[2016-11-04] MEDS: FENTANYL 25 MCG PATCH TD SCH (08:26)
[2016-11-04] MEDS: SENNA/DOCUSATE TABLET PO PRN (08:26)
[2016-11-04 12:08] VITALS: BP 92/55
[2016-11-04] MEDS: NICOTINE 7 MG/24 HR PATCH.TD24 TD SCH (16:46)
[2016-11-04 19:26] VITALS: BP 111/74
[2016-11-04] MEDS: TRAZODONE 50MG TABLET PO SCH (20:37)
[2016-11-05 01:57] VITALS: BP 112/66
[2016-11-05] MEDS: LEVOTHYROXINE 25 MCG TABLET PO SCH (05:48)
[2016-11-05] MEDS: ENOXAPARIN 30 MG/0.3 ML SQ SCH ×2 (05:48→17:31)
[2016-11-05 07:10] VITALS: BP 94/59
[2016-11-05] MEDS: FLUTICASONE/VILANTEROL 100-25MCG/INH INH SCH (10:08)
[2016-11-05] MEDS: OXYcodone IR 5MG TABLET PO PRN ×5 (10:08→21:25)
[2016-11-05] MEDS: FERROUS SULFATE 220 MG/5 ML ORAL SOL PO SCH (10:09)
[2016-11-05] MEDS: METHOCARBAMOL 500 MG TABLET PO PRN (10:09)
[2016-11-05] MEDS: ASCORBIC ACID 500 MG TABLET PO SCH (10:09)
[2016-11-05] MEDS: FAMOTIDINE 20 MG TABLET PO SCH ×2 (10:09→21:21)
[2016-11-05] MEDS: LEVETIRACETAM 100 MG/ML ORAL SOL PO SCH ×2 (10:09→21:21)
[2016-11-05 12:28] VITALS: BP 83/62
[2016-11-05 13:00] VITALS: BP 105/68
[2016-11-05] MEDS: NICOTINE 7 MG/24 HR PATCH.TD24 TD SCH (17:00)
[2016-11-05] MEDS ORDERED: CARBAMIDE PEROXIDE EAR DROPS 6.5%, 15ML LEFT EAR PRN (20:00)
[2016-11-05] MEDS ORDERED: ALBUTEROL SULFATE 2.5 MG/3 ML NPPB PRN ×2 (20:00)
[2016-11-05] MEDS ORDERED: DOCUSATE 100 MG CAPSULE PO PRN (20:00)
[2016-11-05] MEDS ORDERED: ENALAPRILAT 1.25 MG/ML, 2ML IVPush PRN (20:00)
[2016-11-05] MEDS ORDERED: ONDANSETRON 2MG/ML, 2ML IVPush PRN (20:00)
[2016-11-05] MEDS ORDERED: BISACODYL 10 MG SUPP PR PRN (20:00)
[2016-11-05] MEDS ORDERED: ACETAMINOPHEN 325 MG TABLET PO PRN (20:00)
[2016-11-05 20:24] VITALS: BP 95/61
[2016-11-05] MEDS: TRAZODONE 50MG TABLET PO SCH (21:21)
[2016-11-06 03:13] VITALS: BP 103/66
[2016-11-06] MEDS: LEVOTHYROXINE 25 MCG TABLET PO SCH (05:28)
[2016-11-06] MEDS: ENOXAPARIN 30 MG/0.3 ML SQ SCH ×2 (05:29→17:21)
[2016-11-06 08:26] VITALS: BP 108/61
[2016-11-06] MEDS: OXYcodone IR 5MG TABLET PO PRN ×2 (08:59→20:49)
[2016-11-06] MEDS: FLUTICASONE/VILANTEROL 100-25MCG/INH INH SCH (08:59)
[2016-11-06] MEDS: FERROUS SULFATE 220 MG/5 ML ORAL SOL PO SCH (09:00)
[2016-11-06] MEDS: LEVETIRACETAM 100 MG/ML ORAL SOL PO SCH ×2 (09:00→20:48)
[2016-11-06] MEDS: ASCORBIC ACID 500 MG TABLET PO SCH (09:00)
[2016-11-06] MEDS: FAMOTIDINE 20 MG TABLET PO SCH ×2 (09:00→20:49)
[2016-11-06 14:36] VITALS: BP 113/65
[2016-11-06] MEDS: ERYTHROMYCIN OPHTH 0.5%, 1GM EACHEYE SCH ×2 (16:21→20:47)
[2016-11-06] MEDS: NICOTINE 7 MG/24 HR PATCH.TD24 TD SCH (17:00)
[2016-11-06 18:59] VITALS: BP 107/66
[2016-11-06] MEDS: TRAZODONE 50MG TABLET PO SCH (20:49)
[2016-11-07 01:22] VITALS: BP 93/60
[2016-11-07] MEDS: LEVOTHYROXINE 25 MCG TABLET PO SCH (06:00)
[2016-11-07] MEDS: ENOXAPARIN 30 MG/0.3 ML SQ SCH ×2 (06:15→10:00)
[2016-11-07 07:43] VITALS: BP 94/56
[2016-11-07] MEDS: FENTANYL REMOVE PATCH NOTE XX SCH ×2 (08:00→10:20)
[2016-11-07] MEDS: FENTANYL 12 MCG PATCH TD SCH (08:00)
[2016-11-07] MEDS: FENTANYL 25 MCG PATCH TD SCH ×2 (08:00→10:19)
[2016-11-07 09:58] LABS: BLOOD UREA NITROGEN 21 mg/dL (7-18)
[2016-11-07 10:02] LABS: ASPARTATE AMINO TRANSFERASE 30 U/L (15-37)
[2016-11-07] MEDS: FAMOTIDINE 20 MG TABLET PO SCH ×2 (10:04→20:34)
[2016-11-07] MEDS: FERROUS SULFATE 220 MG/5 ML ORAL SOL PO SCH (10:04)
[2016-11-07] MEDS: FLUTICASONE/VILANTEROL 100-25MCG/INH INH SCH (10:04)
[2016-11-07] MEDS: ASCORBIC ACID 500 MG TABLET PO SCH (10:04)
[2016-11-07] MEDS: LEVETIRACETAM 100 MG/ML ORAL SOL PO SCH ×2 (10:04→20:34)
[2016-11-07 10:07] LABS: HEMATOCRIT 38.2 % (39.2-51.8); HEMOGLOBIN 12.4 g/dL (13.7-18.0); WHITE BLOOD COUNT 20.5 x10^3/uL (3.4-10)
[2016-11-07] MEDS: OXYcodone IR 5MG TABLET PO PRN ×2 (10:19→20:35)
[2016-11-07 10:29] LABS: DIFF TOTAL CELLS COUNTED 100 CELL DIFF
[2016-11-07 10:31] LABS: ANISOCYTOSIS 1+; VERIFY COUNTS? YES
[2016-11-07] MEDS: ERYTHROMYCIN OPHTH 0.5%, 1GM EACHEYE SCH ×3 (12:28→20:33)
[2016-11-07 12:58] VITALS: BP 101/63
[2016-11-07] MEDS: NICOTINE 7 MG/24 HR PATCH.TD24 TD SCH (16:35)
[2016-11-07 19:52] VITALS: BP 99/67
[2016-11-07] MEDS: TRAZODONE 50MG TABLET PO SCH (20:34)
[2016-11-08 01:19] VITALS: BP 93/59
[2016-11-08] MEDS: OXYcodone IR 5MG TABLET PO PRN ×3 (03:16→21:45)
[2016-11-08 05:41] LABS: HEMATOCRIT 35.9 % (39.2-51.8); HEMOGLOBIN 11.5 g/dL (13.7-18.0); WHITE BLOOD COUNT 13.9 x10^3/uL (3.4-10)
[2016-11-08 05:48] LABS: ASPARTATE AMINO TRANSFERASE 29 U/L (15-37); BLOOD UREA NITROGEN 18 mg/dL (7-18)
[2016-11-08] MEDS: LEVOTHYROXINE 25 MCG TABLET PO SCH (06:27)
[2016-11-08 07:46] VITALS: BP 96/65
[2016-11-08] MEDS: ENOXAPARIN 30 MG/0.3 ML SQ SCH (08:38)
[2016-11-08] MEDS: FERROUS SULFATE 220 MG/5 ML ORAL SOL PO SCH (08:41)
[2016-11-08] MEDS: ASCORBIC ACID 500 MG TABLET PO SCH (08:41)
[2016-11-08] MEDS: LEVETIRACETAM 100 MG/ML ORAL SOL PO SCH ×2 (08:41→21:39)
[2016-11-08] MEDS: FAMOTIDINE 20 MG TABLET PO SCH ×2 (08:41→21:39)
[2016-11-08] MEDS: ERYTHROMYCIN OPHTH 0.5%, 1GM EACHEYE SCH ×3 (08:41→21:00)
[2016-11-08] MEDS: FLUTICASONE/VILANTEROL 100-25MCG/INH INH SCH (08:41)
[2016-11-08 13:47] VITALS: BP 98/62
[2016-11-08] MEDS ORDERED: VANCOMYCIN PER PHARMACY MC PRN (15:30)
[2016-11-08] MEDS ORDERED: PHARMACOKINETIC CONSULTATION MC ONE (16:00)
[2016-11-08] MEDS ORDERED: PHARMACOKINETIC MONITORING MC PRN (16:00)
[2016-11-08] MEDS: PIPERACILLIN/TAZO/PMX 3.375GM 50 ML IV SCH ×2 (16:04→21:39)
[2016-11-08] MEDS: NICOTINE 7 MG/24 HR PATCH.TD24 TD SCH (16:16)
[2016-11-08] MEDS: VANCOMYCIN PMX 1GM/200ML 200 ML IV SCH (17:22)
[2016-11-08 20:50] VITALS: BP 109/81
[2016-11-08] MEDS: TRAZODONE 50MG TABLET PO SCH (21:39)
[2016-11-09 00:53] VITALS: BP 95/64
[2016-11-09] MEDS: OXYcodone IR 5MG TABLET PO PRN ×3 (01:24→20:58)
[2016-11-09] MEDS: PIPERACILLIN/TAZO/PMX 3.375GM 50 ML IV SCH ×4 (04:27→22:11)
[2016-11-09 06:09] LABS: HEMATOCRIT 32.2 % (39.2-51.8); HEMOGLOBIN 10.5 g/dL (13.7-18.0); WHITE BLOOD COUNT 9.2 x10^3/uL (3.4-10)
[2016-11-09 06:19] LABS: BLOOD UREA NITROGEN 17 mg/dL (7-18)
[2016-11-09] MEDS: LEVOTHYROXINE 25 MCG TABLET PO SCH (06:19)
[2016-11-09] MEDS: ERYTHROMYCIN OPHTH 0.5%, 1GM EACHEYE SCH ×3 (09:00→20:56)
[2016-11-09] MEDS: ENOXAPARIN 30 MG/0.3 ML SQ SCH (09:00)
[2016-11-09] MEDS: LEVETIRACETAM 100 MG/ML ORAL SOL PO SCH ×2 (09:14→20:57)
[2016-11-09] MEDS: FLUTICASONE/VILANTEROL 100-25MCG/INH INH SCH (09:14)
[2016-11-09] MEDS: FERROUS SULFATE 220 MG/5 ML ORAL SOL PO SCH (09:14)
[2016-11-09] MEDS: FAMOTIDINE 20 MG TABLET PO SCH ×2 (09:14→20:58)
[2016-11-09] MEDS: ASCORBIC ACID 500 MG TABLET PO SCH (09:15)
[2016-11-09 09:30] VITALS: BP 95/56
[2016-11-09 12:57] VITALS: BP 89/52
[2016-11-09] MEDS: DULOXETINE 30 MG CAPSULE.DR PO SCH (14:18)
[2016-11-09] MEDS: VANCOMYCIN PMX 1GM/200ML 200 ML IV SCH (16:47)
[2016-11-09] MEDS: NICOTINE 7 MG/24 HR PATCH.TD24 TD SCH (16:47)
[2016-11-09 19:10] VITALS: BP 104/65
[2016-11-09] MEDS: MIRTAZAPINE 15 MG TABLET PO SCH (20:57)
[2016-11-09] MEDS: POTASSIUM CHLORIDE 10% 40 MEQ/30 ML UDC PO SCH (20:57)
[2016-11-09] MEDS: LACTOBACILLUS 1GM/ PACKET PO SCH (20:58)
[2016-11-10 01:31] VITALS: BP 108/58
[2016-11-10] MEDS: PIPERACILLIN/TAZO/PMX 3.375GM 50 ML IV SCH ×4 (03:58→21:52)
[2016-11-10 05:22] LABS: HEMATOCRIT 32.8 % (39.2-51.8); HEMOGLOBIN 10.6 g/dL (13.7-18.0); WHITE BLOOD COUNT 8.5 x10^3/uL (3.4-10)
[2016-11-10] MEDS: LEVOTHYROXINE 25 MCG TABLET PO SCH (05:42)
[2016-11-10 05:43] LABS: BLOOD UREA NITROGEN 15 mg/dL (7-18)
[2016-11-10 08:10] VITALS: BP 95/60
[2016-11-10] MEDS: FENTANYL REMOVE PATCH NOTE XX SCH (10:34)
[2016-11-10] MEDS: LEVETIRACETAM 100 MG/ML ORAL SOL PO SCH (10:35)
[2016-11-10] MEDS: ERYTHROMYCIN OPHTH 0.5%, 1GM EACHEYE SCH ×3 (10:35→21:00)
[2016-11-10] MEDS: POTASSIUM CHLORIDE 10% 40 MEQ/30 ML UDC PO SCH ×2 (10:35→17:09)
[2016-11-10] MEDS: ENOXAPARIN 30 MG/0.3 ML SQ SCH (10:35)
[2016-11-10] MEDS: FERROUS SULFATE 220 MG/5 ML ORAL SOL PO SCH (10:35)
[2016-11-10] MEDS: FLUTICASONE/VILANTEROL 100-25MCG/INH INH SCH (10:35)
[2016-11-10] MEDS: DULOXETINE 30 MG CAPSULE.DR PO SCH (10:35)
[2016-11-10] MEDS: FAMOTIDINE 20 MG TABLET PO SCH ×2 (10:35→21:52)
[2016-11-10] MEDS: LACTOBACILLUS 1GM/ PACKET PO SCH ×3 (10:36→21:52)
[2016-11-10] MEDS: FENTANYL 25 MCG PATCH TD SCH (10:41)
[2016-11-10] MEDS: POTASSIUM ACID PHOSPHATE 500 MG TABLET.SOL PEG SCH ×3 (10:41→21:51)
[2016-11-10] MEDS: ASCORBIC ACID 500 MG TABLET PO SCH (10:41)
[2016-11-10 15:30] VITALS: BP 102/65
[2016-11-10] MEDS: NICOTINE 7 MG/24 HR PATCH.TD24 TD SCH (17:09)
[2016-11-10] MEDS: VANCOMYCIN PMX 1GM/200ML 200 ML IV SCH (18:29)
[2016-11-10 19:25] VITALS: BP 100/67
[2016-11-10] MEDS: MIRTAZAPINE 15 MG TABLET PO SCH (21:52)
[2016-11-11 01:52] VITALS: BP 97/55
[2016-11-11] MEDS: POTASSIUM ACID PHOSPHATE 500 MG TABLET.SOL PEG SCH (04:00)
[2016-11-11] MEDS: OXYcodone IR 5MG TABLET PO PRN ×2 (04:13→21:54)
[2016-11-11] MEDS: PIPERACILLIN/TAZO/PMX 3.375GM 50 ML IV SCH ×3 (04:13→16:43)
[2016-11-11 05:40] LABS: HEMATOCRIT 34.3 % (39.2-51.8); HEMOGLOBIN 11.3 g/dL (13.7-18.0); WHITE BLOOD COUNT 9.8 x10^3/uL (3.4-10)
[2016-11-11 05:46] LABS: BLOOD UREA NITROGEN 11 mg/dL (7-18)
[2016-11-11] MEDS: LEVOTHYROXINE 25 MCG TABLET PO SCH (06:12)
[2016-11-11 07:00] VITALS: BP 112/63
[2016-11-11] MEDS: ERYTHROMYCIN OPHTH 0.5%, 1GM EACHEYE SCH (10:45)
[2016-11-11] MEDS: MAGNESIUM OXIDE 400 MG TABLET PEG SCH (10:45)
[2016-11-11] MEDS: FLUTICASONE/VILANTEROL 100-25MCG/INH INH SCH (10:45)
[2016-11-11] MEDS: FERROUS SULFATE 220 MG/5 ML ORAL SOL PO SCH (10:46)
[2016-11-11] MEDS: ASCORBIC ACID 500 MG TABLET PO SCH (10:46)
[2016-11-11] MEDS: FAMOTIDINE 20 MG TABLET PO SCH ×2 (10:46→21:53)
[2016-11-11] MEDS: LACTOBACILLUS 1GM/ PACKET PO SCH ×3 (10:46→21:53)
[2016-11-11] MEDS: DULOXETINE 30 MG CAPSULE.DR PO SCH (10:46)
[2016-11-11] MEDS: ENOXAPARIN 30 MG/0.3 ML SQ SCH (10:47)
[2016-11-11] MEDS: LAMOTRIGINE 25 MG TABLET PO SCH (10:47)
[2016-11-11] MEDS: LEVETIRACETAM 500 MG TABLET PO SCH (10:50)
[2016-11-11 13:35] VITALS: BP 121/77
[2016-11-11] MEDS: NICOTINE 7 MG/24 HR PATCH.TD24 TD SCH (17:00)
[2016-11-11] MEDS: VANCOMYCIN PMX 1GM/200ML 200 ML IV SCH ×2 (17:00→17:56)
[2016-11-11 21:51] VITALS: BP 106/56
[2016-11-11] MEDS: MIRTAZAPINE 15 MG TABLET PO SCH (21:53)
[2016-11-12 00:41] VITALS: BP 120/87
[2016-11-12] MEDS: PIPERACILLIN/TAZO/PMX 3.375GM 50 ML IV SCH ×4 (01:07→19:27)
[2016-11-12] MEDS: OXYcodone IR 5MG TABLET PO PRN ×4 (01:08→21:37)
[2016-11-12] MEDS: LEVOTHYROXINE 25 MCG TABLET PO SCH (05:40)
[2016-11-12 05:58] LABS: HEMATOCRIT 31.8 % (39.2-51.8); HEMOGLOBIN 10.3 g/dL (13.7-18.0); WHITE BLOOD COUNT 9.5 x10^3/uL (3.4-10)
[2016-11-12 06:03] VITALS: BP 115/85
[2016-11-12 06:21] LABS: BLOOD UREA NITROGEN 11 mg/dL (7-18)
[2016-11-12] MEDS: FLUTICASONE/VILANTEROL 100-25MCG/INH INH SCH (08:20)
[2016-11-12] MEDS: LEVETIRACETAM 500 MG TABLET PO SCH (08:20)
[2016-11-12] MEDS: LACTOBACILLUS 1GM/ PACKET PO SCH ×3 (08:20→21:37)
[2016-11-12] MEDS: MAGNESIUM OXIDE 400 MG TABLET PEG SCH (08:20)
[2016-11-12] MEDS: ENOXAPARIN 30 MG/0.3 ML SQ SCH (08:20)
[2016-11-12] MEDS: DULOXETINE 30 MG CAPSULE.DR PO SCH (08:20)
[2016-11-12] MEDS: ASCORBIC ACID 500 MG TABLET PO SCH (08:20)
[2016-11-12] MEDS: FAMOTIDINE 20 MG TABLET PO SCH ×2 (08:20→21:37)
[2016-11-12] MEDS: LAMOTRIGINE 25 MG TABLET PO SCH (08:20)
[2016-11-12] MEDS: FERROUS SULFATE 220 MG/5 ML ORAL SOL PO SCH (08:21)
[2016-11-12] MEDS: VANCOMYCIN PMX 1GM/200ML 200 ML IV SCH (12:12)
[2016-11-12 14:00] VITALS: BP 109/59
[2016-11-12] MEDS: NICOTINE 7 MG/24 HR PATCH.TD24 TD SCH (16:59)
[2016-11-12] MEDS ORDERED: ALBUTEROL SULFATE 2.5 MG/3 ML NPPB PRN (18:30)
[2016-11-12] MEDS ORDERED: DOCUSATE 100 MG CAPSULE PO PRN (18:30)
[2016-11-12] MEDS ORDERED: CARBAMIDE PEROXIDE EAR DROPS 6.5%, 15ML LEFT EAR PRN (18:30)
[2016-11-12] MEDS ORDERED: BISACODYL 10 MG SUPP PR PRN (18:30)
[2016-11-12] MEDS ORDERED: ENALAPRILAT 1.25 MG/ML, 2ML IVPush PRN (18:30)
[2016-11-12] MEDS ORDERED: VANCOMYCIN PER PHARMACY MC PRN (18:30)
[2016-11-12] MEDS ORDERED: ONDANSETRON 2MG/ML, 2ML IVPush PRN (18:30)
[2016-11-12 21:22] VITALS: BP 96/60
[2016-11-12] MEDS: MIRTAZAPINE 15 MG TABLET PO SCH (21:37)
[2016-11-13] MEDS: PIPERACILLIN/TAZO/PMX 3.375GM 50 ML IV SCH ×4 (01:21→18:59)
[2016-11-13 02:06] VITALS: BP 105/65
[2016-11-13] MEDS: OXYcodone IR 5MG TABLET PO PRN ×5 (02:15→23:37)
[2016-11-13 05:18] LABS: HEMATOCRIT 35.1 % (39.2-51.8); HEMOGLOBIN 11.3 g/dL (13.7-18.0); WHITE BLOOD COUNT 9.3 x10^3/uL (3.4-10)
[2016-11-13 05:22] LABS: BLOOD UREA NITROGEN 11 mg/dL (7-18)
[2016-11-13 05:26] LABS: ASPARTATE AMINO TRANSFERASE 27 U/L (15-37)
[2016-11-13] MEDS: LEVOTHYROXINE 25 MCG TABLET PO SCH (05:39)
[2016-11-13] MEDS: VANCOMYCIN PMX 1GM/200ML 200 ML IV SCH ×2 (05:47→23:36)
[2016-11-13 07:52] VITALS: BP 91/50
[2016-11-13] MEDS: MAGNESIUM OXIDE 400 MG TABLET PEG SCH (07:58)
[2016-11-13] MEDS: FLUTICASONE/VILANTEROL 100-25MCG/INH INH SCH (07:58)
[2016-11-13] MEDS: FAMOTIDINE 20 MG TABLET PO SCH ×2 (07:59→20:43)
[2016-11-13] MEDS: LAMOTRIGINE 25 MG TABLET PO SCH (07:59)
[2016-11-13] MEDS: DULOXETINE 30 MG CAPSULE.DR PO SCH (07:59)
[2016-11-13] MEDS: LACTOBACILLUS 1GM/ PACKET PO SCH ×3 (07:59→20:43)
[2016-11-13] MEDS: FERROUS SULFATE 220 MG/5 ML ORAL SOL PO SCH (07:59)
[2016-11-13] MEDS: ASCORBIC ACID 500 MG TABLET PO SCH (07:59)
[2016-11-13] MEDS: FENTANYL 25 MCG PATCH TD SCH (08:00)
[2016-11-13] MEDS: FENTANYL REMOVE PATCH NOTE XX SCH (08:00)
[2016-11-13] MEDS: ENOXAPARIN 30 MG/0.3 ML SQ SCH (08:01)
[2016-11-13] MEDS ORDERED: LEVETIRACETAM 100 MG/ML ORAL SOL PO SCH (09:00)
[2016-11-13 10:18] VITALS: BP 94/53
[2016-11-13 14:18] VITALS: BP 109/51
[2016-11-13] MEDS: NICOTINE 7 MG/24 HR PATCH.TD24 TD SCH (16:41)
[2016-11-13 19:37] VITALS: BP 93/57
[2016-11-13] MEDS: MIRTAZAPINE 15 MG TABLET PO SCH (20:43)
[2016-11-14 00:56] VITALS: BP 93/55
[2016-11-14] MEDS: PIPERACILLIN/TAZO/PMX 3.375GM 50 ML IV SCH ×4 (01:08→19:52)
[2016-11-14] MEDS: OXYcodone IR 5MG TABLET PO PRN ×4 (02:43→17:05)
[2016-11-14 05:37] LABS: HEMATOCRIT 33.4 % (39.2-51.8); WHITE BLOOD COUNT 9.6 x10^3/uL (3.4-10)
[2016-11-14 05:48] LABS: BLOOD UREA NITROGEN 12 mg/dL (7-18)
[2016-11-14] MEDS: LEVOTHYROXINE 25 MCG TABLET PO SCH (06:08)
[2016-11-14 08:42] VITALS: BP 94/56
[2016-11-14] MEDS: MAGNESIUM OXIDE 400 MG TABLET PEG SCH (09:00)
[2016-11-14] MEDS: DULOXETINE 30 MG CAPSULE.DR PO SCH (09:00)
[2016-11-14] MEDS: ENOXAPARIN 30 MG/0.3 ML SQ SCH (09:00)
[2016-11-14] MEDS: FERROUS SULFATE 220 MG/5 ML ORAL SOL PO SCH (09:00)
[2016-11-14] MEDS: LAMOTRIGINE 25 MG TABLET PO SCH (09:00)
[2016-11-14] MEDS: LACTOBACILLUS 1GM/ PACKET PO SCH ×3 (09:00→20:27)
[2016-11-14] MEDS: FAMOTIDINE 20 MG TABLET PO SCH ×2 (09:00→20:27)
[2016-11-14] MEDS: ASCORBIC ACID 500 MG TABLET PO SCH (09:00)
[2016-11-14] MEDS: FLUTICASONE/VILANTEROL 100-25MCG/INH INH SCH (09:45)
[2016-11-14] MEDS: GUAIFENESIN/COD200MG-20MG/10ML LIQUID PO PRN (13:59)
[2016-11-14 14:39] VITALS: BP 90/52
[2016-11-14] MEDS: NICOTINE 7 MG/24 HR PATCH.TD24 TD SCH (16:51)
[2016-11-14 17:03] VITALS: BP 91/51
[2016-11-14] MEDS: SENNA/DOCUSATE TABLET PO PRN (17:05)
[2016-11-14] MEDS: VANCOMYCIN PMX 1GM/200ML 200 ML IV SCH (18:21)
[2016-11-14 20:06] VITALS: BP 93/60
[2016-11-14] MEDS: MIRTAZAPINE 15 MG TABLET PO SCH (20:27)
[2016-11-15 00:19] VITALS: BP 118/73
[2016-11-15] MEDS: OXYcodone IR 5MG TABLET PO PRN ×5 (00:25→22:45)
[2016-11-15] MEDS: GUAIFENESIN/COD200MG-20MG/10ML LIQUID PO PRN (00:29)
[2016-11-15] MEDS: PIPERACILLIN/TAZO/PMX 3.375GM 50 ML IV SCH ×4 (01:06→19:23)
[2016-11-15] MEDS: LEVOTHYROXINE 25 MCG TABLET PO SCH (05:47)
[2016-11-15 07:30] VITALS: BP 141/96
[2016-11-15] MEDS: FERROUS SULFATE 220 MG/5 ML ORAL SOL PO SCH (08:10)
[2016-11-15] MEDS: FAMOTIDINE 20 MG TABLET PO SCH ×2 (08:11→20:13)
[2016-11-15] MEDS: ASCORBIC ACID 500 MG TABLET PO SCH (08:11)
[2016-11-15] MEDS: DULOXETINE 30 MG CAPSULE.DR PO SCH (08:11)
[2016-11-15] MEDS: MAGNESIUM OXIDE 400 MG TABLET PEG SCH (08:11)
[2016-11-15] MEDS: LACTOBACILLUS 1GM/ PACKET PO SCH ×3 (08:12→20:13)
[2016-11-15] MEDS: LAMOTRIGINE 25 MG TABLET PO SCH (08:12)
[2016-11-15] MEDS: FLUTICASONE/VILANTEROL 100-25MCG/INH INH SCH (08:13)
[2016-11-15] MEDS: ENOXAPARIN 30 MG/0.3 ML SQ SCH (08:14)
[2016-11-15] MEDS: VANCOMYCIN PMX 1GM/200ML 200 ML IV SCH (12:04)
[2016-11-15 14:00] VITALS: BP 89/53
[2016-11-15] MEDS: NICOTINE 7 MG/24 HR PATCH.TD24 TD SCH (16:39)
[2016-11-15 19:56] VITALS: BP 100/48
[2016-11-15] MEDS: MIRTAZAPINE 15 MG TABLET PO SCH (20:13)
[2016-11-16 00:45] VITALS: BP 106/69
[2016-11-16] MEDS: PIPERACILLIN/TAZO/PMX 3.375GM 50 ML IV SCH ×4 (01:07→19:41)
[2016-11-16] MEDS: LEVOTHYROXINE 25 MCG TABLET PO SCH (05:03)
[2016-11-16] MEDS: OXYcodone IR 5MG TABLET PO PRN ×4 (05:04→19:42)
[2016-11-16] MEDS: VANCOMYCIN PMX 1GM/200ML 200 ML IV SCH ×2 (05:04→23:32)
[2016-11-16] MEDS: FENTANYL REMOVE PATCH NOTE XX SCH (08:00)
[2016-11-16 08:12] VITALS: BP 103/63
[2016-11-16] MEDS: MAGNESIUM OXIDE 400 MG TABLET PEG SCH (08:15)
[2016-11-16] MEDS: FLUTICASONE/VILANTEROL 100-25MCG/INH INH SCH (08:15)
[2016-11-16] MEDS: DULOXETINE 30 MG CAPSULE.DR PO SCH ×2 (08:16→19:40)
[2016-11-16] MEDS: LACTOBACILLUS 1GM/ PACKET PO SCH ×3 (08:16→19:40)
[2016-11-16] MEDS: FERROUS SULFATE 220 MG/5 ML ORAL SOL PO SCH (08:16)
[2016-11-16] MEDS: LAMOTRIGINE 25 MG TABLET PO SCH (08:17)
[2016-11-16] MEDS: ENOXAPARIN 30 MG/0.3 ML SQ SCH (08:18)
[2016-11-16] MEDS: ASCORBIC ACID 500 MG TABLET PO SCH (08:18)
[2016-11-16] MEDS: FAMOTIDINE 20 MG TABLET PO SCH ×2 (08:18→19:41)
[2016-11-16] MEDS: FENTANYL 25 MCG PATCH TD SCH (08:19)
[2016-11-16 14:02] VITALS: BP 110/64
[2016-11-16 14:24] VITALS: BP 95/51
[2016-11-16] MEDS: NICOTINE 7 MG/24 HR PATCH.TD24 TD SCH (16:16)
[2016-11-16 19:06] VITALS: BP 123/62
[2016-11-16] MEDS: MIRTAZAPINE 15 MG TABLET PO SCH (19:41)
[2016-11-16] MEDS: METHOCARBAMOL 500 MG TABLET PO PRN (19:41)
[2016-11-17] MEDS: PIPERACILLIN/TAZO/PMX 3.375GM 50 ML IV SCH ×4 (01:14→20:20)
[2016-11-17 01:16] VITALS: BP 97/62
[2016-11-17] MEDS: OXYcodone IR 5MG TABLET PO PRN ×5 (01:41→20:21)
[2016-11-17] MEDS: LEVOTHYROXINE 25 MCG TABLET PO SCH (06:13)
[2016-11-17 07:08] VITALS: BP 87/65
[2016-11-17 07:11] VITALS: BP 96/60
[2016-11-17] MEDS: LAMOTRIGINE 25 MG TABLET PO SCH (09:00)
[2016-11-17] MEDS: ENOXAPARIN 30 MG/0.3 ML SQ SCH (09:00)
[2016-11-17] MEDS: LACTOBACILLUS 1GM/ PACKET PO SCH ×3 (09:16→20:21)
[2016-11-17] MEDS: ASCORBIC ACID 500 MG TABLET PO SCH (09:16)
[2016-11-17] MEDS: FERROUS SULFATE 220 MG/5 ML ORAL SOL PO SCH (09:16)
[2016-11-17] MEDS: FLUTICASONE/VILANTEROL 100-25MCG/INH INH SCH (09:16)
[2016-11-17] MEDS: MAGNESIUM OXIDE 400 MG TABLET PEG SCH (09:20)
[2016-11-17] MEDS: FAMOTIDINE 20 MG TABLET PO SCH ×2 (09:20→20:21)
[2016-11-17] MEDS: DULOXETINE 30 MG CAPSULE.DR PO SCH ×2 (09:21→20:21)
[2016-11-17 15:40] VITALS: BP 90/65
[2016-11-17] MEDS: NICOTINE 7 MG/24 HR PATCH.TD24 TD SCH (16:41)
[2016-11-17 19:18] VITALS: BP 95/59
[2016-11-17] MEDS: MIRTAZAPINE 15 MG TABLET PO SCH (20:21)
[2016-11-17] MEDS: VANCOMYCIN PMX 1GM/200ML 200 ML IV SCH (22:18)
[2016-11-18] MEDS: OXYcodone IR 5MG TABLET PO PRN ×4 (01:07→19:44)
[2016-11-18] MEDS: PIPERACILLIN/TAZO/PMX 3.375GM 50 ML IV SCH ×4 (01:08→19:43)
[2016-11-18 01:47] VITALS: BP 108/56
[2016-11-18] MEDS: LEVOTHYROXINE 25 MCG TABLET PO SCH (06:08)
[2016-11-18 08:49] VITALS: BP 97/62
[2016-11-18] MEDS: FLUTICASONE/VILANTEROL 100-25MCG/INH INH SCH (08:53)
[2016-11-18] MEDS: DULOXETINE 30 MG CAPSULE.DR PO SCH ×2 (08:54→19:43)
[2016-11-18] MEDS: LACTOBACILLUS 1GM/ PACKET PO SCH ×3 (08:54→19:43)
[2016-11-18] MEDS: MAGNESIUM OXIDE 400 MG TABLET PEG SCH (08:54)
[2016-11-18] MEDS: LAMOTRIGINE 25 MG TABLET PO SCH (08:54)
[2016-11-18] MEDS: FAMOTIDINE 20 MG TABLET PO SCH ×2 (08:54→19:43)
[2016-11-18] MEDS: ASCORBIC ACID 500 MG TABLET PO SCH (08:55)
[2016-11-18] MEDS: ENOXAPARIN 30 MG/0.3 ML SQ SCH (08:56)
[2016-11-18] MEDS: FERROUS SULFATE 220 MG/5 ML ORAL SOL PO SCH (08:56)
[2016-11-18] MEDS: FENTANYL 12 MCG PATCH TD SCH (11:30)
[2016-11-18 15:49] VITALS: BP 104/63
[2016-11-18] MEDS: NICOTINE 7 MG/24 HR PATCH.TD24 TD SCH (17:00)
[2016-11-18] MEDS: MIRTAZAPINE 15 MG TABLET PO SCH (19:44)
[2016-11-18 19:54] VITALS: BP_SYST 157; BP_SYST 96; BP_DIAS 65; BP_DIAS 76
[2016-11-19 00:40] VITALS: BP 117/72
[2016-11-19] MEDS: PIPERACILLIN/TAZO/PMX 3.375GM 50 ML IV SCH ×4 (01:05→19:41)
[2016-11-19] MEDS: OXYcodone IR 5MG TABLET PO PRN ×5 (01:05→20:18)
[2016-11-19] MEDS: VANCOMYCIN PMX 1GM/200ML 200 ML IV SCH (03:53)
[2016-11-19 05:45] LABS: HEMATOCRIT 34.2 % (39.2-51.8); HEMOGLOBIN 11.1 g/dL (13.7-18.0); WHITE BLOOD COUNT 11.7 x10^3/uL (3.4-10)
[2016-11-19 05:46] LABS: BLOOD UREA NITROGEN 15 mg/dL (7-18)
[2016-11-19] MEDS: LEVOTHYROXINE 25 MCG TABLET PO SCH (05:46)
[2016-11-19 07:02] VITALS: BP 93/57
[2016-11-19] MEDS: ASCORBIC ACID 500 MG TABLET PO SCH (07:42)
[2016-11-19] MEDS: LACTOBACILLUS 1GM/ PACKET PO SCH ×3 (07:42→20:17)
[2016-11-19] MEDS: FLUTICASONE/VILANTEROL 100-25MCG/INH INH SCH (07:42)
[2016-11-19] MEDS: FAMOTIDINE 20 MG TABLET PO SCH ×2 (07:42→20:17)
[2016-11-19] MEDS: DULOXETINE 30 MG CAPSULE.DR PO SCH ×2 (07:43→20:17)
[2016-11-19] MEDS: FERROUS SULFATE 220 MG/5 ML ORAL SOL PO SCH (07:43)
[2016-11-19] MEDS: ENOXAPARIN 30 MG/0.3 ML SQ SCH (07:43)
[2016-11-19] MEDS: LAMOTRIGINE 25 MG TABLET PO SCH (07:43)
[2016-11-19] MEDS: MAGNESIUM OXIDE 400 MG TABLET PEG SCH (07:43)
[2016-11-19 12:53] VITALS: BP 109/73
[2016-11-19] MEDS: NICOTINE 7 MG/24 HR PATCH.TD24 TD SCH (16:04)
[2016-11-19] MEDS: DIPHENHYDRAMINE/ZINC CRM 2%, 30GM TP PRN (16:16)
[2016-11-19 18:44] VITALS: BP 98/63
[2016-11-19] MEDS ORDERED: DOCUSATE 100 MG CAPSULE PO PRN (19:30)
[2016-11-19] MEDS ORDERED: ONDANSETRON 2MG/ML, 2ML IVPush PRN (19:30)
[2016-11-19] MEDS ORDERED: ENALAPRILAT 1.25 MG/ML, 2ML IVPush PRN (19:30)
[2016-11-19] MEDS ORDERED: ALBUTEROL SULFATE 2.5 MG/3 ML NPPB PRN (19:30)
[2016-11-19] MEDS ORDERED: BISACODYL 10 MG SUPP PR PRN (19:30)
[2016-11-19] MEDS ORDERED: CARBAMIDE PEROXIDE EAR DROPS 6.5%, 15ML LEFT EAR PRN (19:30)
[2016-11-19] MEDS: MIRTAZAPINE 15 MG TABLET PO SCH (20:17)
[2016-11-20] MEDS: OXYcodone IR 5MG TABLET PO PRN ×5 (01:14→20:15)
[2016-11-20] MEDS: PIPERACILLIN/TAZO/PMX 3.375GM 50 ML IV SCH ×2 (01:14→07:38)
[2016-11-20 02:05] VITALS: BP 99/52
[2016-11-20] MEDS: LEVOTHYROXINE 25 MCG TABLET PO SCH (05:53)
[2016-11-20] MEDS: FLUTICASONE/VILANTEROL 100-25MCG/INH INH SCH (07:38)
[2016-11-20] MEDS: DULOXETINE 30 MG CAPSULE.DR PO SCH ×2 (07:39→20:14)
[2016-11-20] MEDS: LAMOTRIGINE 25 MG TABLET PO SCH (07:39)
[2016-11-20] MEDS: FAMOTIDINE 20 MG TABLET PO SCH ×2 (07:40→20:14)
[2016-11-20] MEDS: MAGNESIUM OXIDE 400 MG TABLET PEG SCH (07:40)
[2016-11-20] MEDS: ENOXAPARIN 30 MG/0.3 ML SQ SCH (07:40)
[2016-11-20] MEDS: LACTOBACILLUS 1GM/ PACKET PO SCH ×3 (07:40→20:14)
[2016-11-20] MEDS: FERROUS SULFATE 220 MG/5 ML ORAL SOL PO SCH (07:40)
[2016-11-20] MEDS: ASCORBIC ACID 500 MG TABLET PO SCH (07:40)
[2016-11-20 08:09] VITALS: BP 116/76
[2016-11-20] MEDS ORDERED: VANCOMYCIN PMX 1GM/200ML 200 ML IV SCH (12:00)
[2016-11-20] MEDS: DIPHENHYDRAMINE 25 MG CAPSULE PO PRN (13:31)
[2016-11-20 14:00] VITALS: BP 99/61
[2016-11-20] MEDS: NICOTINE 7 MG/24 HR PATCH.TD24 TD SCH (17:01)
[2016-11-20 19:13] VITALS: BP 95/60
[2016-11-20] MEDS: METHOCARBAMOL 500 MG TABLET PO PRN (20:14)
[2016-11-20] MEDS: MIRTAZAPINE 15 MG TABLET PO SCH (20:14)
[2016-11-21] MEDS: OXYcodone IR 5MG TABLET PO PRN ×6 (01:41→23:56)
[2016-11-21 02:02] VITALS: BP 106/80
[2016-11-21] MEDS: LEVOTHYROXINE 25 MCG TABLET PO SCH (05:51)
[2016-11-21 07:59] VITALS: BP 110/79
[2016-11-21] MEDS: LACTOBACILLUS 1GM/ PACKET PO SCH ×3 (09:00→19:55)
[2016-11-21] MEDS: ENOXAPARIN 30 MG/0.3 ML SQ SCH (09:00)
[2016-11-21] MEDS: LAMOTRIGINE 25 MG TABLET PO SCH (09:00)
[2016-11-21] MEDS: MAGNESIUM OXIDE 400 MG TABLET PEG SCH (11:07)
[2016-11-21] MEDS: ASCORBIC ACID 500 MG TABLET PO SCH (11:07)
[2016-11-21] MEDS: FERROUS SULFATE 220 MG/5 ML ORAL SOL PO SCH (11:07)
[2016-11-21] MEDS: FLUTICASONE/VILANTEROL 100-25MCG/INH INH SCH (11:07)
[2016-11-21] MEDS: FAMOTIDINE 20 MG TABLET PO SCH ×2 (11:07→19:55)
[2016-11-21] MEDS: FENTANYL REMOVE PATCH NOTE XX SCH (11:30)
[2016-11-21 13:56] VITALS: BP 103/60
[2016-11-21 13:57] VITALS: BP 110/76
[2016-11-21] MEDS: DULOXETINE 30 MG CAPSULE.DR PO SCH ×2 (16:10→19:55)
[2016-11-21] MEDS: FENTANYL 12 MCG PATCH TD SCH (16:12)
[2016-11-21] MEDS: NICOTINE 7 MG/24 HR PATCH.TD24 TD SCH (16:52)
[2016-11-21 19:46] VITALS: BP 99/60
[2016-11-21] MEDS: DIPHENHYDRAMINE/ZINC CRM 2%, 30GM TP PRN (19:54)
[2016-11-21] MEDS: METHOCARBAMOL 500 MG TABLET PO PRN ×2 (19:55→23:55)
[2016-11-21] MEDS: MIRTAZAPINE 15 MG TABLET PO SCH (19:55)
[2016-11-21] MEDS: LORazepam 1MG TABLET PO PRN (23:56)
[2016-11-22 02:24] VITALS: BP 95/62
[2016-11-22] MEDS: OXYcodone IR 5MG TABLET PO PRN ×3 (05:26→20:23)
[2016-11-22] MEDS: LORazepam 1MG TABLET PO PRN (05:26)
[2016-11-22] MEDS: LEVOTHYROXINE 25 MCG TABLET PO SCH (05:27)
[2016-11-22 07:39] VITALS: BP 95/61
[2016-11-22] MEDS: LAMOTRIGINE 25 MG TABLET PO SCH (09:00)
[2016-11-22] MEDS: LACTOBACILLUS 1GM/ PACKET PO SCH ×3 (09:00→20:22)
[2016-11-22] MEDS: DULOXETINE 30 MG CAPSULE.DR PO SCH ×2 (09:00→20:23)
[2016-11-22] MEDS: ENOXAPARIN 30 MG/0.3 ML SQ SCH (09:00)
[2016-11-22] MEDS: FAMOTIDINE 20 MG TABLET PO SCH ×2 (09:06→20:23)
[2016-11-22] MEDS: MAGNESIUM OXIDE 400 MG TABLET PEG SCH (09:06)
[2016-11-22] MEDS: FLUTICASONE/VILANTEROL 100-25MCG/INH INH SCH (09:06)
[2016-11-22] MEDS: ASCORBIC ACID 500 MG TABLET PO SCH (09:06)
[2016-11-22] MEDS: FERROUS SULFATE 220 MG/5 ML ORAL SOL PO SCH (09:06)
[2016-11-22] MEDS: DIPHENHYDRAMINE/ZINC CRM 2%, 30GM TP PRN ×2 (09:16→16:19)
[2016-11-22 12:11] VITALS: BP 103/64
[2016-11-22] MEDS: DIPHENHYDRAMINE 25 MG CAPSULE PO PRN (12:42)
[2016-11-22 13:47] VITALS: BP 97/58
[2016-11-22 14:27] LABS: HEMATOCRIT 34.6 % (39.2-51.8); HEMOGLOBIN 11.2 g/dL (13.7-18.0); WHITE BLOOD COUNT 7.7 x10^3/uL (3.4-10)
[2016-11-22 14:29] LABS: BLOOD UREA NITROGEN 19 mg/dL (7-18)
[2016-11-22] MEDS: NICOTINE 7 MG/24 HR PATCH.TD24 TD SCH (16:20)
[2016-11-22] MEDS: SODIUM CHLORIDE 0.9% 1,000 ML IV SCH ×2 (16:20→23:48)
[2016-11-22 19:06] VITALS: BP 100/61
[2016-11-22] MEDS: MIRTAZAPINE 15 MG TABLET PO SCH (20:23)
[2016-11-22] MEDS: SENNA/DOCUSATE TABLET PO PRN (20:41)
[2016-11-23] MEDS: LEVOTHYROXINE 25 MCG TABLET PO SCH (06:00)
[2016-11-23 07:30] VITALS: BP 102/65
[2016-11-23] MEDS: ENOXAPARIN 30 MG/0.3 ML SQ SCH (09:00)
[2016-11-23] MEDS: DIPHENHYDRAMINE/ZINC CRM 2%, 30GM TP PRN (09:04)
[2016-11-23] MEDS: FERROUS SULFATE 220 MG/5 ML ORAL SOL PO SCH (09:05)
[2016-11-23] MEDS: FAMOTIDINE 20 MG TABLET PO SCH ×2 (09:06→21:01)
[2016-11-23] MEDS: ASCORBIC ACID 500 MG TABLET PO SCH (09:06)
[2016-11-23] MEDS: LACTOBACILLUS 1GM/ PACKET PO SCH ×3 (09:06→21:01)
[2016-11-23] MEDS: MAGNESIUM OXIDE 400 MG TABLET PEG SCH (09:06)
[2016-11-23] MEDS: DULOXETINE 30 MG CAPSULE.DR PO SCH ×2 (09:06→21:01)
[2016-11-23] MEDS: LAMOTRIGINE 25 MG TABLET PO SCH (09:06)
[2016-11-23] MEDS: OXYcodone IR 5MG TABLET PO PRN ×3 (09:54→21:01)
[2016-11-23] MEDS: FLUTICASONE/VILANTEROL 100-25MCG/INH INH SCH (09:54)
[2016-11-23] MEDS: SODIUM CHLORIDE 0.9% 1,000 ML IV SCH (09:54)
[2016-11-23] MEDS: NICOTINE 7 MG/24 HR PATCH.TD24 TD SCH (16:09)
[2016-11-23 16:16] VITALS: BP 117/62
[2016-11-23 20:43] VITALS: BP 123/67
[2016-11-23] MEDS: MIRTAZAPINE 15 MG TABLET PO SCH (21:01)
[2016-11-24 02:14] VITALS: BP 103/66
[2016-11-24] MEDS: OXYcodone IR 5MG TABLET PO PRN ×5 (02:40→20:44)
[2016-11-24] MEDS: LEVOTHYROXINE 25 MCG TABLET PO SCH (05:29)
[2016-11-24 08:01] VITALS: BP 118/72
[2016-11-24] MEDS: ENOXAPARIN 30 MG/0.3 ML SQ SCH (08:03)
[2016-11-24] MEDS: DULOXETINE 30 MG CAPSULE.DR PO SCH ×2 (08:18→20:26)
[2016-11-24] MEDS: FLUTICASONE/VILANTEROL 100-25MCG/INH INH SCH (08:18)
[2016-11-24] MEDS: LACTOBACILLUS 1GM/ PACKET PO SCH ×3 (08:18→20:25)
[2016-11-24] MEDS: FERROUS SULFATE 220 MG/5 ML ORAL SOL PO SCH (08:19)
[2016-11-24] MEDS: FAMOTIDINE 20 MG TABLET PO SCH ×2 (08:19→20:26)
[2016-11-24] MEDS: MAGNESIUM OXIDE 400 MG TABLET PEG SCH (08:19)
[2016-11-24] MEDS: ASCORBIC ACID 500 MG TABLET PO SCH (08:19)
[2016-11-24] MEDS: LAMOTRIGINE 25 MG TABLET PO SCH (08:19)
[2016-11-24] MEDS: FENTANYL REMOVE PATCH NOTE XX SCH (11:30)
[2016-11-24 12:04] VITALS: BP 97/59
[2016-11-24] MEDS: DIPHENHYDRAMINE 12.5MG/5ML, 10ML UDC GT PRN (12:08)
[2016-11-24] MEDS: FENTANYL 12 MCG PATCH TD SCH (12:08)
[2016-11-24] MEDS: PHENAZOPYRIDINE 100 MG TABLET PO SCH ×3 (13:18→20:26)
[2016-11-24] MEDS: NICOTINE 7 MG/24 HR PATCH.TD24 TD SCH (16:38)
[2016-11-24 19:16] VITALS: BP 110/66
[2016-11-24] MEDS: MIRTAZAPINE 15 MG TABLET PO SCH (20:25)
[2016-11-24] MEDS: NITROFURANTOIN (MACROBID) 100 MG CAPSULE PO SCH (20:26)
[2016-11-25 02:11] VITALS: BP 95/57
[2016-11-25] MEDS: OXYcodone IR 5MG TABLET PO PRN ×4 (04:05→21:13)
[2016-11-25] MEDS: LEVOTHYROXINE 25 MCG TABLET PO SCH (06:29)
[2016-11-25 07:10] VITALS: BP 93/60
[2016-11-25] MEDS: ENOXAPARIN 30 MG/0.3 ML SQ SCH (09:00)
[2016-11-25] MEDS: LAMOTRIGINE 25 MG TABLET PO SCH (09:00)
[2016-11-25] MEDS: DULOXETINE 30 MG CAPSULE.DR PO SCH (09:00)
[2016-11-25] MEDS: PHENAZOPYRIDINE 100 MG TABLET PO SCH (10:10)
[2016-11-25] MEDS: FLUTICASONE/VILANTEROL 100-25MCG/INH INH SCH (10:10)
[2016-11-25] MEDS: NITROFURANTOIN (MACROBID) 100 MG CAPSULE PO SCH ×2 (10:10→21:12)
[2016-11-25] MEDS: FLUCONAZOLE 100 MG TABLET PO SCH (10:10)
[2016-11-25] MEDS: FERROUS SULFATE 220 MG/5 ML ORAL SOL PO SCH (10:10)
[2016-11-25] MEDS: LACTOBACILLUS 1GM/ PACKET PO SCH ×3 (10:10→21:12)
[2016-11-25] MEDS: FAMOTIDINE 20 MG TABLET PO SCH ×2 (10:10→21:12)
[2016-11-25] MEDS: MAGNESIUM OXIDE 400 MG TABLET PEG SCH (10:10)
[2016-11-25] MEDS: ASCORBIC ACID 500 MG TABLET PO SCH (10:10)
[2016-11-25 15:08] VITALS: BP 102/64
[2016-11-25] MEDS: PAROXETINE 20 MG TABLET PO SCH (15:59)
[2016-11-25] MEDS: NICOTINE 7 MG/24 HR PATCH.TD24 TD SCH (15:59)
[2016-11-25 19:09] VITALS: BP 97/60
[2016-11-25] MEDS: MIRTAZAPINE 15 MG TABLET PO SCH (21:12)
[2016-11-26 01:44] VITALS: BP 116/68
[2016-11-26] MEDS: OXYcodone IR 5MG TABLET PO PRN ×5 (01:54→21:47)
[2016-11-26] MEDS: POLYETHYLENE GLYCOL 17 GM PACKET PO PRN ×2 (06:07→17:48)
[2016-11-26] MEDS: LEVOTHYROXINE 25 MCG TABLET PO SCH (06:07)
[2016-11-26 07:11] VITALS: BP 95/60
[2016-11-26] MEDS: FERROUS SULFATE 220 MG/5 ML ORAL SOL PO SCH (09:00)
[2016-11-26] MEDS: ENOXAPARIN 30 MG/0.3 ML SQ SCH (09:00)
[2016-11-26] MEDS: LAMOTRIGINE 25 MG TABLET PO SCH (09:00)
[2016-11-26] MEDS: FLUTICASONE/VILANTEROL 100-25MCG/INH INH SCH (09:55)
[2016-11-26] MEDS: NITROFURANTOIN (MACROBID) 100 MG CAPSULE PO SCH (09:55)
[2016-11-26] MEDS: LACTOBACILLUS 1GM/ PACKET PO SCH ×3 (09:56→21:46)
[2016-11-26] MEDS: ASCORBIC ACID 500 MG TABLET PO SCH (09:56)
[2016-11-26] MEDS: FAMOTIDINE 20 MG TABLET PO SCH ×2 (09:56→21:47)
[2016-11-26] MEDS: PAROXETINE 20 MG TABLET PO SCH (09:56)
[2016-11-26] MEDS: FLUCONAZOLE 100 MG TABLET PO SCH (09:56)
[2016-11-26 12:24] VITALS: BP 102/62
[2016-11-26] MEDS: DIPHENHYDRAMINE 12.5MG/5ML, 10ML UDC GT PRN (12:59)
[2016-11-26] MEDS: DIPHENHYDRAMINE/ZINC CRM 2%, 30GM TP PRN ×2 (14:46→21:46)
[2016-11-26] MEDS ORDERED: ENALAPRILAT 1.25 MG/ML, 2ML IVPush PRN (15:30)
[2016-11-26] MEDS ORDERED: DOCUSATE 100 MG CAPSULE PO PRN (15:30)
[2016-11-26] MEDS ORDERED: BISACODYL 10 MG SUPP PR PRN (15:30)
[2016-11-26] MEDS ORDERED: CARBAMIDE PEROXIDE EAR DROPS 6.5%, 15ML LEFT EAR PRN (15:30)
[2016-11-26] MEDS ORDERED: ALBUTEROL SULFATE 2.5 MG/3 ML NPPB PRN (15:30)
[2016-11-26] MEDS: NICOTINE 7 MG/24 HR PATCH.TD24 TD SCH (17:48)
[2016-11-26 19:00] VITALS: BP 113/68
[2016-11-26] MEDS: NITROFURANTOIN 5MG/ML ORAL SUSP PO SCH (21:46)
[2016-11-26] MEDS: MIRTAZAPINE 15 MG TABLET PO SCH (21:47)
[2016-11-27 01:41] VITALS: BP 102/63
[2016-11-27] MEDS: OXYcodone IR 5MG TABLET PO PRN ×5 (01:57→18:39)
[2016-11-27] MEDS: DIPHENHYDRAMINE/ZINC CRM 2%, 30GM TP PRN ×3 (03:33→14:19)
[2016-11-27] MEDS: LEVOTHYROXINE 25 MCG TABLET PO SCH (06:17)
[2016-11-27 08:04] VITALS: BP 106/65
[2016-11-27] MEDS: LACTOBACILLUS 1GM/ PACKET PO SCH ×3 (09:28→20:28)
[2016-11-27] MEDS: FERROUS SULFATE 220 MG/5 ML ORAL SOL PO SCH (09:28)
[2016-11-27] MEDS: NITROFURANTOIN 5MG/ML ORAL SUSP PO SCH ×2 (09:29→20:28)
[2016-11-27] MEDS: FAMOTIDINE 20 MG TABLET PO SCH ×2 (09:29→20:28)
[2016-11-27] MEDS: FLUCONAZOLE 100 MG TABLET PO SCH (09:29)
[2016-11-27] MEDS: LAMOTRIGINE 25 MG TABLET PO SCH (09:29)
[2016-11-27] MEDS: ASCORBIC ACID 500 MG TABLET PO SCH (09:29)
[2016-11-27] MEDS: FLUTICASONE/VILANTEROL 100-25MCG/INH INH SCH (09:30)
[2016-11-27] MEDS: ENOXAPARIN 30 MG/0.3 ML SQ SCH (09:30)
[2016-11-27] MEDS: FENTANYL 12 MCG PATCH TD SCH (11:36)
[2016-11-27] MEDS: FENTANYL REMOVE PATCH NOTE XX SCH (11:37)
[2016-11-27 15:14] VITALS: BP 108/66
[2016-11-27] MEDS: SENNA/DOCUSATE TABLET PO PRN (18:39)
[2016-11-27] MEDS: NICOTINE 7 MG/24 HR PATCH.TD24 TD SCH ×2 (18:39→20:28)
[2016-11-27 19:51] VITALS: BP 104/66
[2016-11-27] MEDS: MIRTAZAPINE 15 MG TABLET PO SCH (20:28)
[2016-11-28 02:02] VITALS: BP 98/61
[2016-11-28] MEDS: OXYcodone IR 5MG TABLET PO PRN ×5 (04:36→20:38)
[2016-11-28] MEDS: SENNA/DOCUSATE TABLET PO PRN (05:51)
[2016-11-28] MEDS: LEVOTHYROXINE 25 MCG TABLET PO SCH (05:51)
[2016-11-28 07:58] VITALS: BP 101/68
[2016-11-28] MEDS: FERROUS SULFATE 220 MG/5 ML ORAL SOL PO SCH (08:29)
[2016-11-28] MEDS: LACTOBACILLUS 1GM/ PACKET PO SCH (08:29)
[2016-11-28] MEDS: FLUTICASONE/VILANTEROL 100-25MCG/INH INH SCH (08:29)
[2016-11-28] MEDS: NITROFURANTOIN 5MG/ML ORAL SUSP PO SCH ×2 (08:29→20:38)
[2016-11-28] MEDS: LAMOTRIGINE 25 MG TABLET PO SCH (08:30)
[2016-11-28] MEDS: FAMOTIDINE 20 MG TABLET PO SCH ×2 (08:30→20:38)
[2016-11-28] MEDS: FLUCONAZOLE 100 MG TABLET PO SCH (08:30)
[2016-11-28] MEDS: ASCORBIC ACID 500 MG TABLET PO SCH (08:30)
[2016-11-28] MEDS: ENOXAPARIN 30 MG/0.3 ML SQ SCH (08:31)
[2016-11-28] MEDS: DIPHENHYDRAMINE/ZINC CRM 2%, 30GM TP PRN (11:59)
[2016-11-28 14:36] VITALS: BP 101/67
[2016-11-28] MEDS: LACTOBACILLUS CHEW TABLET PO SCH ×2 (16:38→20:38)
[2016-11-28] MEDS: NICOTINE 7 MG/24 HR PATCH.TD24 TD SCH (17:16)
[2016-11-28 19:23] VITALS: BP 101/63
[2016-11-28] MEDS: MIRTAZAPINE 15 MG TABLET PO SCH (20:38)
[2016-11-29] MEDS: DIPHENHYDRAMINE/ZINC CRM 2%, 30GM TP PRN (00:23)
[2016-11-29 00:26] VITALS: BP 102/63
[2016-11-29] MEDS: OXYcodone IR 5MG TABLET PO PRN ×4 (05:19→16:42)
[2016-11-29] MEDS: LEVOTHYROXINE 25 MCG TABLET PO SCH (05:19)
[2016-11-29 08:55] VITALS: BP 95/65
[2016-11-29] MEDS: ENOXAPARIN 30 MG/0.3 ML SQ SCH (09:32)
[2016-11-29] MEDS: FERROUS SULFATE 220 MG/5 ML ORAL SOL PO SCH (09:58)
[2016-11-29] MEDS: FLUCONAZOLE 100 MG TABLET PO SCH (09:58)
[2016-11-29] MEDS: FLUTICASONE/VILANTEROL 100-25MCG/INH INH SCH (09:58)
[2016-11-29] MEDS: NITROFURANTOIN 5MG/ML ORAL SUSP PO SCH ×2 (09:59→20:25)
[2016-11-29] MEDS: LAMOTRIGINE 25 MG TABLET PO SCH (09:59)
[2016-11-29] MEDS: LACTOBACILLUS CHEW TABLET PO SCH ×3 (09:59→20:25)
[2016-11-29] MEDS: FAMOTIDINE 20 MG TABLET PO SCH ×2 (10:00→20:25)
[2016-11-29] MEDS: ASCORBIC ACID 500 MG TABLET PO SCH (10:00)
[2016-11-29 15:10] VITALS: BP 102/70
[2016-11-29] MEDS: NICOTINE 7 MG/24 HR PATCH.TD24 TD SCH (16:42)
[2016-11-29 19:38] VITALS: BP 100/66
[2016-11-29] MEDS: MIRTAZAPINE 15 MG TABLET PO SCH (20:25)
[2016-11-30 01:11] VITALS: BP 110/72
[2016-11-30] MEDS: OXYcodone IR 5MG TABLET PO PRN ×4 (05:43→20:43)
[2016-11-30] MEDS: LEVOTHYROXINE 25 MCG TABLET PO SCH (05:43)
[2016-11-30 08:00] VITALS: BP 113/75
[2016-11-30] MEDS: LAMOTRIGINE 25 MG TABLET PO SCH ×2 (09:00→20:43)
[2016-11-30] MEDS: ENOXAPARIN 30 MG/0.3 ML SQ SCH (09:00)
[2016-11-30] MEDS: FLUTICASONE/VILANTEROL 100-25MCG/INH INH SCH (09:38)
[2016-11-30] MEDS: FLUCONAZOLE 100 MG TABLET PO SCH (09:39)
[2016-11-30] MEDS: NITROFURANTOIN 5MG/ML ORAL SUSP PO SCH (09:39)
[2016-11-30] MEDS: FERROUS SULFATE 220 MG/5 ML ORAL SOL PO SCH (09:39)
[2016-11-30] MEDS: FAMOTIDINE 20 MG TABLET PO SCH ×2 (09:39→20:43)
[2016-11-30] MEDS: LACTOBACILLUS CHEW TABLET PO SCH ×3 (09:39→20:43)
[2016-11-30] MEDS: ASCORBIC ACID 500 MG TABLET PO SCH (09:40)
[2016-11-30] MEDS: FENTANYL 12 MCG PATCH TD SCH (11:03)
[2016-11-30] MEDS: FENTANYL REMOVE PATCH NOTE XX SCH (11:04)
[2016-11-30] MEDS: DIPHENHYDRAMINE/ZINC CRM 2%, 30GM TP PRN ×2 (11:04→19:50)
[2016-11-30 14:04] VITALS: BP 110/71
[2016-11-30] MEDS: NICOTINE 7 MG/24 HR PATCH.TD24 TD SCH (17:06)
[2016-11-30 19:35] VITALS: BP 97/57
[2016-11-30] MEDS: MIRTAZAPINE 15 MG TABLET PO SCH (20:43)
[2016-11-30] MEDS ORDERED: NITROFURANTOIN 5MG/ML ORAL SUSP PO SCH (21:00)
[2016-12-01 00:58] VITALS: BP 100/65
[2016-12-01] MEDS: OXYcodone IR 5MG TABLET PO PRN ×4 (05:47→21:07)
[2016-12-01] MEDS: LEVOTHYROXINE 25 MCG TABLET PO SCH (05:47)
[2016-12-01] MEDS: ENOXAPARIN 30 MG/0.3 ML SQ SCH (07:08)
[2016-12-01 08:24] LABS: HEMATOCRIT 38.3 % (39.2-51.8); HEMOGLOBIN 12.6 g/dL (13.7-18.0); WHITE BLOOD COUNT 7.9 x10^3/uL (3.4-10)
[2016-12-01 08:33] LABS: BLOOD UREA NITROGEN 19 mg/dL (7-18)
[2016-12-01 08:48] VITALS: BP 109/68
[2016-12-01] MEDS: LAMOTRIGINE 25 MG TABLET PO SCH ×2 (09:00→21:00)
[2016-12-01] MEDS: FLUTICASONE/VILANTEROL 100-25MCG/INH INH SCH (10:11)
[2016-12-01] MEDS: FERROUS SULFATE 220 MG/5 ML ORAL SOL PO SCH (10:11)
[2016-12-01] MEDS: FAMOTIDINE 20 MG TABLET PO SCH ×2 (10:12→21:07)
[2016-12-01] MEDS: ASCORBIC ACID 500 MG TABLET PO SCH (10:12)
[2016-12-01] MEDS: LACTOBACILLUS CHEW TABLET PO SCH ×3 (10:12→21:07)
[2016-12-01 14:32] VITALS: BP 94/58
[2016-12-01] MEDS: DIPHENHYDRAMINE/ZINC CRM 2%, 30GM TP PRN (14:46)
[2016-12-01] MEDS: NICOTINE 7 MG/24 HR PATCH.TD24 TD SCH (16:07)
[2016-12-01 20:36] VITALS: BP 93/66
[2016-12-01] MEDS: MIRTAZAPINE 15 MG TABLET PO SCH (21:07)
[2016-12-02 02:07] VITALS: BP 99/63
[2016-12-02] MEDS: OXYcodone IR 5MG TABLET PO PRN ×4 (03:04→20:11)
[2016-12-02] MEDS: SENNA/DOCUSATE TABLET PO PRN (03:15)
[2016-12-02] MEDS: LEVOTHYROXINE 25 MCG TABLET PO SCH (05:26)
[2016-12-02] MEDS: ENOXAPARIN 30 MG/0.3 ML SQ SCH (07:24)
[2016-12-02 08:00] VITALS: BP 93/58
[2016-12-02] MEDS: LAMOTRIGINE 25 MG TABLET PO SCH ×2 (09:00→21:00)
[2016-12-02] MEDS: ASCORBIC ACID 500 MG TABLET PO SCH (09:40)
[2016-12-02] MEDS: LACTOBACILLUS CHEW TABLET PO SCH ×3 (09:40→21:36)
[2016-12-02] MEDS: METHOCARBAMOL 500 MG TABLET PO PRN ×2 (09:40→16:43)
[2016-12-02] MEDS: FERROUS SULFATE 220 MG/5 ML ORAL SOL PO SCH (09:40)
[2016-12-02] MEDS: FAMOTIDINE 20 MG TABLET PO SCH ×2 (09:40→21:36)
[2016-12-02] MEDS: DIPHENHYDRAMINE/ZINC CRM 2%, 30GM TP PRN (09:41)
[2016-12-02] MEDS: FLUTICASONE/VILANTEROL 100-25MCG/INH INH SCH (09:41)
[2016-12-02] MEDS: POLYETHYLENE GLYCOL 17 GM PACKET PO PRN (09:42)
[2016-12-02] MEDS: ONDANSETRON ODT 4 MG PO PRN (10:14)
[2016-12-02 14:00] VITALS: BP 100/60
[2016-12-02] MEDS: NICOTINE 7 MG/24 HR PATCH.TD24 TD SCH (16:44)
[2016-12-02 19:15] VITALS: BP 98/64
[2016-12-02] MEDS: MIRTAZAPINE 15 MG TABLET PO SCH (21:36)
[2016-12-02 21:47] VITALS: BP 101/65
[2016-12-03 01:32] VITALS: BP 99/68
[2016-12-03] MEDS: OXYcodone IR 5MG TABLET PO PRN ×4 (03:26→20:47)
[2016-12-03] MEDS: DIPHENHYDRAMINE/ZINC CRM 2%, 30GM TP PRN ×2 (03:30→12:15)
[2016-12-03] MEDS: LEVOTHYROXINE 25 MCG TABLET PO SCH (05:50)
[2016-12-03 07:49] VITALS: BP 94/63
[2016-12-03] MEDS: ENOXAPARIN 30 MG/0.3 ML SQ SCH (09:00)
[2016-12-03] MEDS: ASCORBIC ACID 500 MG TABLET PO SCH (09:30)
[2016-12-03] MEDS: FAMOTIDINE 20 MG TABLET PO SCH ×2 (09:30→20:48)
[2016-12-03] MEDS: LACTOBACILLUS CHEW TABLET PO SCH ×3 (09:30→20:48)
[2016-12-03] MEDS: LAMOTRIGINE 25 MG TABLET PO SCH ×2 (09:30→20:47)
[2016-12-03] MEDS: FLUTICASONE/VILANTEROL 100-25MCG/INH INH SCH (09:30)
[2016-12-03] MEDS: FERROUS SULFATE 220 MG/5 ML ORAL SOL PO SCH (09:30)
[2016-12-03] MEDS: FENTANYL 12 MCG PATCH TD SCH (12:12)
[2016-12-03] MEDS: FENTANYL REMOVE PATCH NOTE XX SCH (12:13)
[2016-12-03 14:58] VITALS: BP 109/72
[2016-12-03] MEDS: NICOTINE 7 MG/24 HR PATCH.TD24 TD SCH (17:29)
[2016-12-03] MEDS: MIRTAZAPINE 15 MG TABLET PO SCH (20:47)
[2016-12-03 21:00] VITALS: BP 100/65
[2016-12-04 02:55] VITALS: BP 92/52
[2016-12-04] MEDS: OXYcodone IR 5MG TABLET PO PRN ×5 (03:07→20:08)
[2016-12-04] MEDS: LEVOTHYROXINE 25 MCG TABLET PO SCH (06:16)
[2016-12-04 07:25] VITALS: BP 87/46
[2016-12-04] MEDS: ENOXAPARIN 30 MG/0.3 ML SQ SCH (09:00)
[2016-12-04] MEDS: FLUTICASONE/VILANTEROL 100-25MCG/INH INH SCH (10:54)
[2016-12-04] MEDS: FERROUS SULFATE 220 MG/5 ML ORAL SOL PO SCH (10:54)
[2016-12-04] MEDS: LAMOTRIGINE 25 MG TABLET PO SCH ×2 (10:54→20:09)
[2016-12-04] MEDS: LACTOBACILLUS CHEW TABLET PO SCH ×3 (10:55→20:08)
[2016-12-04] MEDS: FAMOTIDINE 20 MG TABLET PO SCH ×2 (10:55→20:08)
[2016-12-04] MEDS: ASCORBIC ACID 500 MG TABLET PO SCH (10:55)
[2016-12-04 15:31] VITALS: BP 91/52
[2016-12-04] MEDS: SENNA/DOCUSATE TABLET PO PRN (15:36)
[2016-12-04] MEDS: DIPHENHYDRAMINE/ZINC CRM 2%, 30GM TP PRN (15:36)
[2016-12-04] MEDS: NICOTINE 7 MG/24 HR PATCH.TD24 TD SCH (17:27)
[2016-12-04 19:29] VITALS: BP 128/68
[2016-12-04] MEDS: MIRTAZAPINE 15 MG TABLET PO SCH (20:08)
[2016-12-05 01:42] VITALS: BP 99/64
[2016-12-05] MEDS: OXYcodone IR 5MG TABLET PO PRN ×4 (03:17→19:38)
[2016-12-05] MEDS: SENNA/DOCUSATE TABLET PO PRN (03:17)
[2016-12-05] MEDS: LEVOTHYROXINE 25 MCG TABLET PO SCH (05:20)
[2016-12-05 06:14] LABS: BLOOD UREA NITROGEN 22 mg/dL (7-18)
[2016-12-05 07:32] LABS: HEMATOCRIT 38.1 % (39.2-51.8); HEMOGLOBIN 12.6 g/dL (13.7-18.0); WHITE BLOOD COUNT 6.7 x10^3/uL (3.4-10)
[2016-12-05 07:36] VITALS: BP 84/65
[2016-12-05] MEDS: ASCORBIC ACID 500 MG TABLET PO SCH (08:32)
[2016-12-05] MEDS: LAMOTRIGINE 25 MG TABLET PO SCH ×2 (08:32→19:38)
[2016-12-05] MEDS: FLUTICASONE/VILANTEROL 100-25MCG/INH INH SCH (08:32)
[2016-12-05] MEDS: FERROUS SULFATE 220 MG/5 ML ORAL SOL PO SCH (08:32)
[2016-12-05] MEDS: LACTOBACILLUS CHEW TABLET PO SCH ×3 (08:32→19:39)
[2016-12-05] MEDS: DIPHENHYDRAMINE/ZINC CRM 2%, 30GM TP PRN (08:33)
[2016-12-05] MEDS: FAMOTIDINE 20 MG TABLET PO SCH ×2 (08:33→19:39)
[2016-12-05] MEDS: ENOXAPARIN 30 MG/0.3 ML SQ SCH (09:00)
[2016-12-05] MEDS: METHOCARBAMOL 500 MG TABLET PO PRN ×2 (09:49→16:39)
[2016-12-05] MEDS: LORazepam 1MG TABLET PO PRN ×2 (09:49→19:37)
[2016-12-05 13:50] VITALS: BP 86/56
[2016-12-05] MEDS: NICOTINE 7 MG/24 HR PATCH.TD24 TD SCH (16:39)
[2016-12-05 19:06] VITALS: BP 102/76
[2016-12-05] MEDS: MIRTAZAPINE 15 MG TABLET PO SCH (19:38)
[2016-12-06 01:22] VITALS: BP 96/62
[2016-12-06] MEDS: LEVOTHYROXINE 25 MCG TABLET PO SCH (05:19)
[2016-12-06] MEDS: SENNA/DOCUSATE TABLET PO PRN (05:19)
[2016-12-06] MEDS: OXYcodone IR 5MG TABLET PO PRN ×4 (05:20→19:48)
[2016-12-06 05:59] LABS: PATH.CAST-FLAG NOT PRESENT; SPERM-FLAG NOT PRESENT; SRC-FLAG NOT PRESENT; XTAL-FLAG NOT PRESENT; YLC-FLAG NOT PRESENT
[2016-12-06 07:14] VITALS: BP 95/52
[2016-12-06] MEDS: ENOXAPARIN 30 MG/0.3 ML SQ SCH (09:00)
[2016-12-06] MEDS: LACTOBACILLUS CHEW TABLET PO SCH ×3 (09:40→19:48)
[2016-12-06] MEDS: FERROUS SULFATE 220 MG/5 ML ORAL SOL PO SCH (09:40)
[2016-12-06] MEDS: FLUTICASONE/VILANTEROL 100-25MCG/INH INH SCH (09:40)
[2016-12-06] MEDS: ASCORBIC ACID 500 MG TABLET PO SCH (09:40)
[2016-12-06] MEDS: FAMOTIDINE 20 MG TABLET PO SCH ×2 (09:40→19:49)
[2016-12-06] MEDS: LAMOTRIGINE 25 MG TABLET PO SCH ×2 (09:40→19:48)
[2016-12-06 12:20] VITALS: BP 93/58
[2016-12-06] MEDS: NICOTINE 7 MG/24 HR PATCH.TD24 TD SCH (19:47)
[2016-12-06] MEDS: MIRTAZAPINE 15 MG TABLET PO SCH (19:49)
[2016-12-06] MEDS: METHOCARBAMOL 500 MG TABLET PO PRN (19:49)
[2016-12-06] MEDS: LORazepam 1MG TABLET PO PRN (19:49)
[2016-12-06 20:14] VITALS: BP 99/66
[2016-12-07 01:36] VITALS: BP 100/64
[2016-12-07] MEDS: OXYcodone IR 5MG TABLET PO PRN ×3 (01:41→19:49)
[2016-12-07] MEDS: LEVOTHYROXINE 25 MCG TABLET PO SCH (05:18)
[2016-12-07] MEDS: METHOCARBAMOL 500 MG TABLET PO PRN ×3 (05:18→19:49)
[2016-12-07 07:01] VITALS: BP 94/59
[2016-12-07] MEDS: FLUTICASONE/VILANTEROL 100-25MCG/INH INH SCH (08:26)
[2016-12-07] MEDS: FERROUS SULFATE 220 MG/5 ML ORAL SOL PO SCH (08:26)
[2016-12-07] MEDS: LACTOBACILLUS CHEW TABLET PO SCH ×3 (08:27→19:50)
[2016-12-07] MEDS: FAMOTIDINE 20 MG TABLET PO SCH ×2 (08:27→19:49)
[2016-12-07] MEDS: ENOXAPARIN 30 MG/0.3 ML SQ SCH (08:27)
[2016-12-07] MEDS: ASCORBIC ACID 500 MG TABLET PO SCH (08:27)
[2016-12-07] MEDS: LAMOTRIGINE 25 MG TABLET PO SCH ×2 (08:27→19:49)
[2016-12-07 14:53] VITALS: BP 97/64
[2016-12-07] MEDS: NICOTINE 7 MG/24 HR PATCH.TD24 TD SCH (17:03)
[2016-12-07 19:14] VITALS: BP 105/70
[2016-12-07] MEDS: LORazepam 1MG TABLET PO PRN ×2 (19:49→22:30)
[2016-12-07] MEDS: MIRTAZAPINE 15 MG TABLET PO SCH (19:50)
[2016-12-07] MEDS ORDERED: OXYcodone IR 5MG TABLET PO ONE (22:30)
[2016-12-08 02:31] VITALS: BP 112/72
[2016-12-08] MEDS: LEVOTHYROXINE 25 MCG TABLET PO SCH (04:11)
[2016-12-08] MEDS: OXYcodone IR 5MG TABLET PO PRN ×3 (04:11→21:10)
[2016-12-08] MEDS: LAMOTRIGINE 25 MG TABLET PO SCH ×2 (09:00→21:10)
[2016-12-08] MEDS: ENOXAPARIN 30 MG/0.3 ML SQ SCH (09:00)
[2016-12-08] MEDS: FLUTICASONE/VILANTEROL 100-25MCG/INH INH SCH (09:25)
[2016-12-08] MEDS: FERROUS SULFATE 220 MG/5 ML ORAL SOL PO SCH (09:26)
[2016-12-08] MEDS: LACTOBACILLUS CHEW TABLET PO SCH ×3 (09:26→21:10)
[2016-12-08] MEDS: ASCORBIC ACID 500 MG TABLET PO SCH (09:27)
[2016-12-08] MEDS: FAMOTIDINE 20 MG TABLET PO SCH ×2 (09:27→21:10)
[2016-12-08 10:54] VITALS: BP 106/67
[2016-12-08 12:35] VITALS: BP 92/58
[2016-12-08 15:13] VITALS: BP 100/69
[2016-12-08] MEDS: NICOTINE 7 MG/24 HR PATCH.TD24 TD SCH (15:47)
[2016-12-08 18:38] VITALS: BP 94/59
[2016-12-08] MEDS: MIRTAZAPINE 15 MG TABLET PO SCH (21:10)
[2016-12-09] MEDS: OXYcodone IR 5MG TABLET PO PRN ×3 (01:16→12:24)
[2016-12-09 02:10] VITALS: BP 105/68
[2016-12-09] MEDS: LEVOTHYROXINE 25 MCG TABLET PO SCH (05:24)
[2016-12-09 06:48] VITALS: BP 98/61
[2016-12-09] MEDS: FERROUS SULFATE 220 MG/5 ML ORAL SOL PO SCH (08:20)
[2016-12-09] MEDS: LAMOTRIGINE 25 MG TABLET PO SCH (08:20)
[2016-12-09] MEDS: LACTOBACILLUS CHEW TABLET PO SCH ×2 (08:21→16:23)
[2016-12-09] MEDS: FAMOTIDINE 20 MG TABLET PO SCH (08:21)
[2016-12-09] MEDS: ASCORBIC ACID 500 MG TABLET PO SCH (08:22)
[2016-12-09] MEDS: FLUTICASONE/VILANTEROL 100-25MCG/INH INH SCH (08:23)
[2016-12-09] MEDS: ENOXAPARIN 30 MG/0.3 ML SQ SCH (08:30)
[2016-12-09] MEDS ORDERED: ONDA4TAB13 PO (12:27)
[2016-12-09] MEDS ORDERED: FAMO20TA7 PO (12:27)
[2016-12-09] MEDS ORDERED: SENN1TAB7 PO (12:27)
[2016-12-09] MEDS ORDERED: [UNRECOGNIZED DRUG - CODE] LEFT EAR (12:27)
[2016-12-09] MEDS ORDERED: DOCU-131 PO (12:27)
[2016-12-09] MEDS ORDERED: ASCO500T6 PO (12:27)
[2016-12-09] MEDS ORDERED: LEVO25TA2 PO (12:27)
[2016-12-09] MEDS ORDERED: LORA-446 PO (12:27)
[2016-12-09] MEDS ORDERED: ALBU2.5V NPPB (12:27)
[2016-12-09] MEDS ORDERED: METH500T7 PO (12:27)
[2016-12-09] MEDS ORDERED: MIRT15TA4 PO (12:27)
[2016-12-09] MEDS ORDERED: FERR220S3 PO (12:27)
[2016-12-09] MEDS ORDERED: DIPH28CR5 TP (12:27)
[2016-12-09] MEDS ORDERED: OXYC5TAB3 PO (12:27)
[2016-12-09] MEDS ORDERED: POLY17PO5 PO (12:27)
[2016-12-09] MEDS ORDERED: LAMO25TA PO (12:27)
[2016-12-09] MEDS ORDERED: LIDO15SO3 MM (12:27)
[2016-12-09 14:13] VITALS: BP 90/57
[2016-12-09] MEDS: NICOTINE 7 MG/24 HR PATCH.TD24 TD SCH (16:23)
== END 2016-12-09 17:10 | DRG 177 ==
LOC: ED 14:30 → EDIP 14:30 → 3NE 15:32
PROVIDERS: ADMIT Hospitalist; ATTEND Internal Medicine
DX: J69.0 Pneumonitis due to inhalation of food and vomit (principal); J96.01 Acute respiratory failure with hypoxia; E41 Nutritional marasmus; A41.9 Sepsis, unspecified organism; R53.2 Functional quadriplegia; F33.2 Major depressive disorder, recurrent severe without psychotic features; E43 Unspecified severe protein-calorie malnutrition; N39.0 Urinary tract infection, site not specified; J44.0 Chronic obstructive pulmonary disease with (acute) lower respiratory infection; J44.1 Chronic obstructive pulmonary disease with (acute) exacerbation; J15.212 Pneumonia due to Methicillin resistant Staphylococcus aureus; K22.2 Esophageal obstruction; D63.8 Anemia in other chronic diseases classified elsewhere; D75.89 Other specified diseases of blood and blood-forming organs; G40.909 Epilepsy, unspecified, not intractable, without status epilepticus; D50.9 Iron deficiency anemia, unspecified; F17.200 Nicotine dependence, unspecified, uncomplicated; B96.20 Unspecified Escherichia coli [E. coli] as the cause of diseases classified elsewhere; B96.1 Klebsiella pneumoniae [K. pneumoniae] as the cause of diseases classified elsewhere; D47.3 Essential (hemorrhagic) thrombocythemia; E03.9 Hypothyroidism, unspecified; E83.39 Other disorders of phosphorus metabolism; E87.6 Hypokalemia; F41.9 Anxiety disorder, unspecified; G47.00 Insomnia, unspecified; G89.29 Other chronic pain; H10.9 Unspecified conjunctivitis; H61.20 Impacted cerumen, unspecified ear; I10 Essential (primary) hypertension; K21.9 Gastro-esophageal reflux disease without esophagitis; L29.9 Pruritus, unspecified; T38.0X5A Adverse effect of glucocorticoids and synthetic analogues, initial encounter; Z51.5 Encounter for palliative care; Z66 Do not resuscitate; Z79.899 Other long term (current) drug therapy; Z85.820 Personal history of malignant melanoma of skin; Z91.81 History of falling; L27.0 Generalized skin eruption due to drugs and medicaments taken internally; T36.0X5A Adverse effect of penicillins, initial encounter
CPT/HCPCS: 36415; 70487; 71010; 71250; 74177; 74230; 80048; 80053; 80202; 81001; 81003; 82040; 82565; 82607; 82728; 82746; 83540; 83550; 83690; 83735; 84100; 84439; 84443; 84484; 85025; 85610; 85730; 86255; 87040; 87070; 87077; 87086; 87106; 87186; 87205; 93005; 93308; 93321; 93325; 94690; 95819; 96361; 96374; J1650; J1953; J2405; J2543; J3370; J7611; Q0162; Q9967; J2270; J2930; J7030; J7040; J7050; J7512; Q0163; S0028

== ENCOUNTER 2018-01-27 10:04 | Emergency (ER) | payer MEDICARE, MEDICAID ==
[~2018-01-27] VITALS: Ht 185.4 cm; Wt 64.0 kg
[~2018-01-27 10:04] MED LIST: ALBU0.63 NEB; ALBU2.5V NPPB; ASCO500T6 PO; CARB-136 LEFT EAR; DIPH28CR5 TP; DOCU-131 PO; FAMO20TA7 PO; FERR220S6 PO; FLUT1AER INH; HYDR-3245 PO; LAMO25TA PO; LANS30CA PO; LEVE500T8 PO; LEVO25TA2 PO; LIDO15SO3 MM; LORA-446 PO; LORA1TAB PO; MELA1TAB22 PO; METH500T7 PO; MIRT15TA4 PO; ONDA4TAB13 PO; OXYC10TA6 PO; OXYC5CAP2 PO; OXYC5TAB3 PO; POLY17PO5 PO; SENN1TAB8 PO; TIOT18CA INH; TRAZ-136 PO
[2018-01-27 15:45] VITALS: BP 114/72
== END 2018-01-27 17:49 ==
LOC: ED 14:07
DX: Z43.1 Encounter for attention to gastrostomy (principal); M79.672 Pain in left foot; K21.9 Gastro-esophageal reflux disease without esophagitis
CPT/HCPCS: 49450; 99284; C1729; 49440

== ENCOUNTER 2018-08-28 23:13 | Inpatient (IN) | payer MEDICARE, MEDICAID ==
[~2018-08-28] VITALS: Ht 188 cm; Wt 69.7 kg
[~2018-08-28 23:13] MED LIST changes: +DIPH28CR21 TP; -DIPH28CR5 TP; -LAMO25TA PO; +LAMO25TA9 PO; +SENN-177 PO; -SENN1TAB8 PO; -TRAZ-136 PO; +TRAZ50TA66 PO
--- NOTE | 2018-08-28 23:31 | NUR ---
BIB [facility], PT PLACED ON 7L OXIMASK. PT C/O SOB AND ILL LAST FEW DAYS. PT COMES IN WITH G TUBE RLQ, PT STATES INCONT. LEFT FOOT IN [place] BOOT.
[2018-08-29] MEDS ORDERED: CEFEPIME 2 GM in DEXTROSE 5% 100 ML IVPB ONE
[2018-08-29] MEDS ORDERED: SODIUM CHLORIDE 0.9% 1,000ML IVBOLUS ONE
[2018-08-29] MEDS ORDERED: AZITHROMYCIN 500 MG in SODIUM CHLORIDE 0.9% 250 ML IVPB ONE
[2018-08-29 00:13] LABS: MEAN CORPUSCULAR HEMOGLOBIN 29.3 pg (27.5-34.5); MEAN CORPUSCULAR HGB CONC 31.3 g/dL (33.2-36.2); MEAN CORPUSCULAR VOLUME 93.8 fL (81-97); MEAN PLATELET VOLUME 6.8 fL (7.4-10.4); PLATELET COUNT 590 x10^3/uL (130-400); RED BLOOD COUNT 4.21 x10^6/uL (4.38-5.82)
[2018-08-29 00:25] LABS: ANION GAP 7 mmol/L (5-15); CALCIUM 8.2 mg/dL (8.5-10.1); CHLORIDE 106 mmol/L (98-107); CREATININE 0.88 mg/dL (0.7-1.3)
[2018-08-29 00:29] LABS: TROPONIN I < 0.015 ng/mL (0.000-0.045)
[2018-08-29] MEDS ORDERED: GABA300C10 PO (00:29)
[2018-08-29] MEDS ORDERED: OMEP-110 PO (00:29)
[2018-08-29] MEDS ORDERED: ESCI10TA PO (00:29)
[2018-08-29] MEDS ORDERED: AMOX1TAB64 PO (00:29)
[2018-08-29] MEDS ORDERED: OXYC-432 PO (00:29)
[2018-08-29] MEDS ORDERED: LORA-445 PO (00:29)
[2018-08-29] MEDS ORDERED: DIPH25CA61 PO (00:29)
[2018-08-29] MEDS ORDERED: FLUT1BLS INH (00:29)
[2018-08-29] MEDS ORDERED: ALBUTEROL/IPRATROPIUM 2.5MG/0.5MG, 3 ML ONE ×4 (00:48→10:57)
--- NOTE | 2018-08-29 00:49 | NUR ---
TASK RN: PT RESTING IN RTALKING ROCK W/ EYES CLOSED. EVEN/RAPID RESPIRATIONS NOTED, RATE 50. SPO2 >90% ON 6L BY OXY MASK. PT EASILY ARROUSABLE AND EASILY CONVERSING WITH STAFF. ERP AT BEDSIDE. VERBAL ORDER RECEIVED FOR TRIAL OPTIFLOW. MT TO CALL RT. IVF/ABX CONTINUE TO INFUSE. NO S/S OF ABX RXN NOTED.
[2018-08-29 00:52] LABS: BASOPHILS # (AUTO) 0.01 x10^3/uL (0-0.1); BASOPHILS % (AUTO) 0 % (0-1); EOSINOPHILS # (AUTO) 0.03 x10^3/uL (0-0.4); EOSINOPHILS % (AUTO) 0 % (1-7); LYMPHOCYTES # (AUTO) 1.02 x10^3/uL (1-3.4); LYMPHOCYTES % (AUTO) 5 % (22-44); MONOCYTES # (AUTO) 0.46 x10^3/uL (0.2-0.8); MONOCYTES % (AUTO) 2 % (2-9); NEUTROPHILS # (AUTO) 17.64 x10^3/uL (1.8-6.8); NEUTROPHILS % (AUTO) 92 % (42-75)
[2018-08-29 00:53] LABS: MD SCAN
--- NOTE | 2018-08-29 02:18 | NUR ---
pt resting on [place], monitors in place, optiflow mask in use, spo2-95%, sideraisl up x2, call light within reach
[2018-08-29] MEDS: SODIUM CHLORIDE 0.9% 1,000 ML IV SCH ×3 (02:30→16:10)
[2018-08-29] MEDS ORDERED: ALBUTEROL/IPRATROPIUM 2.5MG/0.5MG, 3 ML NPPB PRN ×2 (02:30→04:30)
--- NOTE | 2018-08-29 03:34 | NUR ---
pt resting calmly, hospital bed ordered, denies needs, monitors in place, call light within reach. [employer] at bedside for lab draw
--- NOTE | 2018-08-29 04:51 | NUR ---
assisted pt into hospital bed, noted pt incontinent of stool, pt cleaned and new gown put on, provided pt with xtra warm blankets, monitors in place, call light within reach.
--- NOTE | 2018-08-29 05:29 | NUR ---
pt resting with eyes closed, nadn, equal chest rise/fall observed, siderails up x2, call light within reach
[2018-08-29] MEDS: LEVOTHYROXINE 25 MCG TABLET PO SCH (05:57)
--- NOTE | 2018-08-29 06:07 | NUR ---
pt medicated per peg tube, see mar
--- NOTE | 2018-08-29 06:23 | NUR ---
pt resting calmly with eyes closed, equal chest rise/fall observed, monitors in place, call light within reach
--- NOTE | 2018-08-29 07:01 | NUR ---
received report from Sruthi pt resting on hospital bed with eyes closed, able to doze off,, responds approp to staff, NAD, comfort maasures provided, call light within reach.
--- NOTE | 2018-08-29 07:02 | NUR ---
report given to lucinda emerson
--- NOTE | 2018-08-29 08:01 | NUR ---
pt upright on hospital bed awake & comfortable, able to doze off, responds approp to staff, NAD, comfort measures provided, call light within reach.
[2018-08-29] MEDS ORDERED: FLUTICASONE/VILANTEROL 200-25MCG/INH INH SCH (09:00)
[2018-08-29] MEDS ORDERED: GABAPENTIN 300 MG CAPSULE PO SCH (09:00)
--- NOTE | 2018-08-29 09:00 | NUR ---
pt upright on hospital bed sleeping, responds approp to staff, NAD, comfort measures provided, call light within reach.
[2018-08-29] MEDS ORDERED: GABAPENTIN 300 MG CAPSULE ONE (09:14)
--- NOTE | 2018-08-29 09:42 | NUR ---
I am assuming care of this pt from clara (lucinda) at this time. sbar report was exchanged at the bedside.
--- NOTE | 2018-08-29 09:42 | NUR ---
REPORT GIVEN TO TODD
--- NOTE | 2018-08-29 10:22 | NUR ---
pt is resdting comfortably on a hospital bed. vs are stable, and wdl. no acute changes are noted since her arrival here today. i will continue to monityor and treat as ordered, as well as prn while awaiting a room assignment for admission.
[2018-08-29] MEDS ORDERED: BUDESONIDE 0.5 MG/2 ML INHA ONE ×2 (10:30→10:57)
[2018-08-29] MEDS: LAMOTRIGINE 25 MG TABLET PO SCH ×2 (10:42→20:32)
[2018-08-29] MEDS: ESCITALOPRAM 10MG TABLET PO SCH (10:42)
[2018-08-29] MEDS: FERROUS SULFATE 220 MG/5 ML ORAL SOL PO SCH (10:42)
[2018-08-29] MEDS: ALBUTEROL/IPRATROPIUM 2.5MG/0.5MG, 3 ML NPPB SCH ×3 (10:45→21:00)
[2018-08-29] MEDS: BUDESONIDE 0.5 MG/2 ML INHA NPPB SCH ×2 (10:45→21:00)
--- NOTE | 2018-08-29 11:47 | NUR ---
Verbal sbar report was exchanged w brandin lawrence) on the floor for admission. we will begin to prepare for transport at this time.
[2018-08-29 13:10] VITALS: BP 101/56
[2018-08-29 13:51] VITALS: BP 104/60
[2018-08-29] MEDS: CEFEPIME 1 GM in DEXTROSE 5% 50 ML IV SCH (16:10)
[2018-08-29] MEDS: METRONIDAZOLE PMX 500MG/100ML 100 ML IV SCH (18:19)
[2018-08-29] MEDS: LINEZOLID PMX 600MG/300ML 300 ML IV SCH (19:48)
[2018-08-29] MEDS: MIRTAZAPINE 15 MG TABLET PO SCH (20:33)
[2018-08-29 20:59] VITALS: BP 106/56
[2018-08-30] MEDS ORDERED: OMNIPAQUE 350 MG/ML, 75ML BOTTLE ONE (00:32)
[2018-08-30 01:16] VITALS: BP 115/75
[2018-08-30] MEDS: METRONIDAZOLE PMX 500MG/100ML 100 ML IV SCH ×3 (02:04→18:44)
[2018-08-30] MEDS: ALBUTEROL/IPRATROPIUM 2.5MG/0.5MG, 3 ML NPPB SCH ×4 (02:40→19:34)
[2018-08-30] MEDS: CEFEPIME 1 GM in DEXTROSE 5% 50 ML IV SCH ×2 (04:24→16:50)
[2018-08-30] MEDS: LEVOTHYROXINE 25 MCG TABLET PO SCH (05:44)
[2018-08-30 06:22] LABS: ANION GAP 8 mmol/L (5-15); CALCIUM 8.1 mg/dL (8.5-10.1); CHLORIDE 112 mmol/L (98-107)
[2018-08-30] MEDS: SODIUM CHLORIDE 0.9% 1,000 ML IV SCH ×2 (06:31→16:50)
[2018-08-30 06:40] LABS: MEAN CORPUSCULAR HEMOGLOBIN 29.4 pg (27.5-34.5); MEAN CORPUSCULAR HGB CONC 31.7 g/dL (33.2-36.2); MEAN CORPUSCULAR VOLUME 92.8 fL (81-97); MEAN PLATELET VOLUME 6.8 fL (7.4-10.4); PLATELET COUNT 458 x10^3/uL (130-400); RED BLOOD COUNT 3.44 x10^6/uL (4.38-5.82); RED CELL DISTRIBUTION WIDTH 15.4 % (9.4-14.8)
[2018-08-30 07:11] LABS: BASOPHILS # (AUTO) 0.02 x10^3/uL (0-0.1); BASOPHILS % (AUTO) 0 % (0-1); EOSINOPHILS # (AUTO) 0.06 x10^3/uL (0-0.4); EOSINOPHILS % (AUTO) 1 % (1-7); LYMPHOCYTES # (AUTO) 1.15 x10^3/uL (1-3.4); LYMPHOCYTES % (AUTO) 12 % (22-44); MD SCAN; MONOCYTES % (AUTO) 5 % (2-9); NEUTROPHILS % (AUTO) 82 % (42-75)
[2018-08-30 08:13] VITALS: BP 113/69
[2018-08-30] MEDS: LINEZOLID PMX 600MG/300ML 300 ML IV SCH ×2 (09:08→20:14)
[2018-08-30] MEDS: ESCITALOPRAM 10MG TABLET PO SCH (09:09)
[2018-08-30] MEDS: LAMOTRIGINE 25 MG TABLET PO SCH ×2 (09:09→20:15)
[2018-08-30] MEDS: FERROUS SULFATE 220 MG/5 ML ORAL SOL PO SCH (09:09)
[2018-08-30] MEDS: GABAPENTIN 250 MG/5 ML ORAL SOL PO SCH (09:09)
[2018-08-30] MEDS: BUDESONIDE 0.5 MG/2 ML INHA NPPB SCH ×2 (09:20→19:34)
[2018-08-30] MEDS ORDERED: SODIUM CHLORIDE INHALATION 7%, 4 ML NPPB ONE (11:00)
[2018-08-30 13:40] VITALS: BP 107/65
[2018-08-30] MEDS ORDERED: ONDANSETRON 2MG/ML, 2ML ONE (13:42)
[2018-08-30] MEDS ORDERED: ONDANSETRON 2MG/ML, 2ML IVPush PRN (14:00)
[2018-08-30] MEDS ORDERED: ACETAMINOPHEN 650 MG/20.3 ML UDC ONE (16:47)
[2018-08-30] MEDS: ACETAMINOPHEN 650 MG/20.3 ML UDC PO PRN ×2 (16:50→23:24)
[2018-08-30] MEDS ORDERED: METOCLOPRAMIDE 5 MG/ML, 2ML IVPush PRN (17:30)
[2018-08-30] MEDS: MIRTAZAPINE 15 MG TABLET PO SCH (20:14)
[2018-08-30 20:16] VITALS: BP 118/69
[2018-08-31 00:29] VITALS: BP 107/62
[2018-08-31] MEDS: METRONIDAZOLE PMX 500MG/100ML 100 ML IV SCH ×3 (02:18→18:05)
[2018-08-31] MEDS: ALBUTEROL/IPRATROPIUM 2.5MG/0.5MG, 3 ML NPPB SCH ×4 (02:39→19:22)
[2018-08-31] MEDS: CEFEPIME 1 GM in DEXTROSE 5% 50 ML IV SCH ×2 (04:28→16:00)
[2018-08-31] MEDS: SODIUM CHLORIDE 0.9% 1,000 ML IV SCH ×2 (04:29→16:01)
[2018-08-31] MEDS: LEVOTHYROXINE 25 MCG TABLET PO SCH (05:28)
[2018-08-31] MEDS: ACETAMINOPHEN 650 MG/20.3 ML UDC PO PRN ×4 (05:28→18:05)
[2018-08-31 07:59] VITALS: BP 114/70
[2018-08-31] MEDS: ESCITALOPRAM 10MG TABLET PO SCH (08:56)
[2018-08-31] MEDS: LINEZOLID PMX 600MG/300ML 300 ML IV SCH ×2 (08:56→20:52)
[2018-08-31] MEDS: FERROUS SULFATE 220 MG/5 ML ORAL SOL PO SCH (08:56)
[2018-08-31] MEDS: LAMOTRIGINE 25 MG TABLET PO SCH ×2 (08:56→20:53)
[2018-08-31] MEDS: GABAPENTIN 250 MG/5 ML ORAL SOL PO SCH (08:57)
[2018-08-31] MEDS: BUDESONIDE 0.5 MG/2 ML INHA NPPB SCH ×2 (09:00→19:22)
[2018-08-31 10:22] LABS: ANION GAP 7 mmol/L (5-15); CALCIUM 7.7 mg/dL (8.5-10.1); CHLORIDE 114 mmol/L (98-107); CREATININE 0.68 mg/dL (0.7-1.3)
[2018-08-31 10:23] LABS: BASOPHILS # (AUTO) 0.03 x10^3/uL (0-0.1); BASOPHILS % (AUTO) 1 % (0-1); EOSINOPHILS # (AUTO) 0.13 x10^3/uL (0-0.4); EOSINOPHILS % (AUTO) 2 % (1-7); LYMPHOCYTES # (AUTO) 0.89 x10^3/uL (1-3.4); LYMPHOCYTES % (AUTO) 14 % (22-44); MD NO; MEAN CORPUSCULAR HEMOGLOBIN 29.2 pg (27.5-34.5); MEAN CORPUSCULAR HGB CONC 31.6 g/dL (33.2-36.2); MEAN CORPUSCULAR VOLUME 92.5 fL (81-97); MEAN PLATELET VOLUME 6.5 fL (7.4-10.4); MONOCYTES # (AUTO) 0.37 x10^3/uL (0.2-0.8); MONOCYTES % (AUTO) 6 % (2-9); NEUTROPHILS # (AUTO) 4.92 x10^3/uL (1.8-6.8); NEUTROPHILS % (AUTO) 78 % (42-75); PLATELET COUNT 454 x10^3/uL (130-400); RED BLOOD COUNT 3.56 x10^6/uL (4.38-5.82); RED CELL DISTRIBUTION WIDTH 15.4 % (9.4-14.8)
[2018-08-31 14:29] VITALS: BP 112/66
[2018-08-31] MEDS ORDERED: POTASSIUM CHLORIDE 20 MEQ TAB.ER.PRT PO ONE (18:30)
[2018-08-31] MEDS ORDERED: GABAPENTIN 250 MG/5 ML ORAL SOL PO PRN (18:30)
[2018-08-31] MEDS: METOCLOPRAMIDE 5 MG/ML, 2ML IVPush PRN (18:35)
[2018-08-31 20:02] VITALS: BP 126/72
[2018-08-31] MEDS: MIRTAZAPINE 15 MG TABLET PO SCH (20:52)
[2018-09-01 01:57] VITALS: BP 135/82
[2018-09-01] MEDS: METRONIDAZOLE PMX 500MG/100ML 100 ML IV SCH ×3 (01:57→21:47)
[2018-09-01] MEDS: SODIUM CHLORIDE 0.9% 1,000 ML IV SCH ×3 (02:55→18:30)
[2018-09-01] MEDS: ALBUTEROL/IPRATROPIUM 2.5MG/0.5MG, 3 ML NPPB SCH ×4 (03:00→21:00)
[2018-09-01] MEDS: CEFEPIME 1 GM in DEXTROSE 5% 50 ML IV SCH ×2 (04:35→15:30)
[2018-09-01] MEDS: LEVOTHYROXINE 25 MCG TABLET PO SCH (06:06)
[2018-09-01 07:34] VITALS: BP 137/87
[2018-09-01] MEDS: ESCITALOPRAM 10MG TABLET PO SCH (09:00)
[2018-09-01] MEDS: LAMOTRIGINE 25 MG TABLET PO SCH ×2 (09:00→21:48)
[2018-09-01] MEDS: FERROUS SULFATE 220 MG/5 ML ORAL SOL PO SCH (09:00)
[2018-09-01] MEDS: LINEZOLID PMX 600MG/300ML 300 ML IV SCH ×2 (09:00→22:45)
[2018-09-01] MEDS: BUDESONIDE 0.5 MG/2 ML INHA NPPB SCH ×2 (09:30→21:00)
[2018-09-01 15:11] VITALS: BP 110/71
[2018-09-01 20:58] VITALS: BP 146/80
[2018-09-01] MEDS: MIRTAZAPINE 15 MG TABLET PO SCH (21:47)
[2018-09-01] MEDS: ACETAMINOPHEN 650 MG/20.3 ML UDC PO PRN (21:48)
[2018-09-01] MEDS: METOCLOPRAMIDE 5 MG/ML, 2ML IVPush PRN (21:48)
[2018-09-02 01:25] VITALS: BP 134/77
[2018-09-02] MEDS: ALBUTEROL/IPRATROPIUM 2.5MG/0.5MG, 3 ML NPPB SCH ×4 (01:47→20:44)
[2018-09-02] MEDS: CEFEPIME 1 GM in DEXTROSE 5% 50 ML IV SCH ×2 (03:41→16:57)
[2018-09-02] MEDS: LEVOTHYROXINE 25 MCG TABLET PO SCH (05:38)
[2018-09-02] MEDS: METRONIDAZOLE PMX 500MG/100ML 100 ML IV SCH ×2 (05:39→16:57)
[2018-09-02] MEDS: BUDESONIDE 0.5 MG/2 ML INHA NPPB SCH ×2 (07:54→20:44)
[2018-09-02 10:30] VITALS: BP 132/83
[2018-09-02] MEDS ORDERED: MORPHINE SULFATE 4 MG/ML, 1ML ONE (11:21)
[2018-09-02] MEDS: MORPHINE SULFATE 4 MG/ML, 1ML IVPush PRN ×2 (11:31→20:39)
[2018-09-02] MEDS: FERROUS SULFATE 220 MG/5 ML ORAL SOL PO SCH (11:32)
[2018-09-02] MEDS: SODIUM CHLORIDE 0.9% 1,000 ML IV SCH ×2 (11:32→16:57)
[2018-09-02] MEDS: LINEZOLID PMX 600MG/300ML 300 ML IV SCH ×2 (11:32→23:35)
[2018-09-02] MEDS: LAMOTRIGINE 25 MG TABLET PO SCH ×2 (11:32→20:39)
[2018-09-02] MEDS: ESCITALOPRAM 10MG TABLET PO SCH (11:32)
[2018-09-02 14:10] VITALS: BP 125/74
[2018-09-02 14:45] LABS: ANION GAP 7 mmol/L (5-15); CALCIUM 7.7 mg/dL (8.5-10.1); CHLORIDE 108 mmol/L (98-107)
[2018-09-02 14:50] LABS: MEAN CORPUSCULAR HEMOGLOBIN 29.8 pg (27.5-34.5); MEAN CORPUSCULAR HGB CONC 32.2 g/dL (33.2-36.2); MEAN CORPUSCULAR VOLUME 92.4 fL (81-97); MEAN PLATELET VOLUME 6.4 fL (7.4-10.4); PLATELET COUNT 528 x10^3/uL (130-400); RED BLOOD COUNT 3.76 x10^6/uL (4.38-5.82); RED CELL DISTRIBUTION WIDTH 15.9 % (9.4-14.8)
[2018-09-02 15:11] LABS: MD YES
[2018-09-02 15:13] LABS: BAND#(MANUAL) 1.13 x10^3/uL; BANDS%(MANUAL) 5 % (0-7); LYMPH#(MANUAL) 0.68 x10^3/uL (1-3.4); LYMPHS% (MANUAL) 3 % (22-44); MONOS#(MANUAL) 0.68 x10^3/uL (0.3-2.7); MONOS% (MANUAL) 3 % (2-9); SEG#(MANUAL) 20.03 x10^3/uL (1.8-6.8); SEGS% (MANUAL) 89 % (42-75)
[2018-09-02 15:14] LABS: <PLATELET ESTIMATE> INCREASED; <PLT MORPHOLOGY> NORMAL PLT MORPH; <RBC MORPHOLOGY> NORMAL
[2018-09-02] MEDS ORDERED: POTASSIUM CHLORIDE 20 MEQ PACKET GT ONE (15:30)
[2018-09-02 20:14] VITALS: BP 126/74
[2018-09-02] MEDS: MIRTAZAPINE 15 MG TABLET PO SCH (20:39)
[2018-09-02] MEDS: ACETAMINOPHEN 650 MG/20.3 ML UDC PO PRN (22:05)
[2018-09-02] MEDS: METOCLOPRAMIDE 5 MG/ML, 2ML IVPush PRN (22:06)
[2018-09-02 23:46] VITALS: BP 138/82
[2018-09-03] MEDS: MORPHINE SULFATE 4 MG/ML, 1ML IVPush PRN ×3 (01:42→13:45)
[2018-09-03] MEDS: METRONIDAZOLE PMX 500MG/100ML 100 ML IV SCH ×2 (01:42→09:08)
[2018-09-03] MEDS: ALBUTEROL/IPRATROPIUM 2.5MG/0.5MG, 3 ML NPPB SCH ×3 (02:56→14:05)
[2018-09-03] MEDS: CEFEPIME 1 GM in DEXTROSE 5% 50 ML IV SCH ×2 (04:00→16:24)
[2018-09-03] MEDS: LEVOTHYROXINE 25 MCG TABLET PO SCH (04:36)
[2018-09-03 06:03] LABS: MEAN CORPUSCULAR HEMOGLOBIN 29.9 pg (27.5-34.5); MEAN CORPUSCULAR HGB CONC 31.9 g/dL (33.2-36.2); MEAN CORPUSCULAR VOLUME 93.6 fL (81-97); MEAN PLATELET VOLUME 6.4 fL (7.4-10.4); PLATELET COUNT 460 x10^3/uL (130-400); RED BLOOD COUNT 3.54 x10^6/uL (4.38-5.82); RED CELL DISTRIBUTION WIDTH 15.8 % (9.4-14.8)
[2018-09-03 06:10] LABS: ANION GAP 7 mmol/L (5-15); CALCIUM 7.7 mg/dL (8.5-10.1); CHLORIDE 109 mmol/L (98-107); CREATININE 0.53 mg/dL (0.7-1.3)
[2018-09-03 06:27] LABS: BASOPHILS # (AUTO) 0.02 x10^3/uL (0-0.1); BASOPHILS % (AUTO) 0 % (0-1); EOSINOPHILS # (AUTO) 0.02 x10^3/uL (0-0.4); EOSINOPHILS % (AUTO) 0 % (1-7); LYMPHOCYTES # (AUTO) 1.14 x10^3/uL (1-3.4); LYMPHOCYTES % (AUTO) 5 % (22-44); MD SCAN; MONOCYTES # (AUTO) 0.77 x10^3/uL (0.2-0.8); MONOCYTES % (AUTO) 4 % (2-9); NEUTROPHILS % (AUTO) 91 % (42-75)
[2018-09-03 07:45] VITALS: BP 138/95
[2018-09-03] MEDS: LAMOTRIGINE 25 MG TABLET PO SCH (09:08)
[2018-09-03] MEDS: FERROUS SULFATE 220 MG/5 ML ORAL SOL PO SCH (09:08)
[2018-09-03] MEDS: ESCITALOPRAM 10MG TABLET PO SCH (09:08)
[2018-09-03] MEDS: BUDESONIDE 0.5 MG/2 ML INHA NPPB SCH (09:25)
[2018-09-03] MEDS: LINEZOLID PMX 600MG/300ML 300 ML IV SCH (11:35)
[2018-09-03] MEDS: METOCLOPRAMIDE 5 MG/ML, 2ML IVPush PRN (11:54)
[2018-09-03 13:30] VITALS: BP 135/75
[2018-09-03] MEDS: ACETAMINOPHEN 650 MG/20.3 ML UDC PO PRN (16:24)
== END 2018-09-03 17:04 | disposition hospice, home (50) | DRG 871 ==
LOC: ED 08-29 01:14 → EDIP 08-29 01:19 → ED 08-29 01:49 → 4WST 08-29 12:18
PROVIDERS: ADMIT Internal Medicine; ATTEND Internal Medicine
DX: A41.9 Sepsis, unspecified organism (principal); J18.1 Lobar pneumonia, unspecified organism; J96.21 Acute and chronic respiratory failure with hypoxia; E43 Unspecified severe protein-calorie malnutrition; C15.9 Malignant neoplasm of esophagus, unspecified; Z68.1 Body mass index [BMI] 19.9 or less, adult; J44.0 Chronic obstructive pulmonary disease with (acute) lower respiratory infection; J44.1 Chronic obstructive pulmonary disease with (acute) exacerbation; D64.9 Anemia, unspecified; E03.9 Hypothyroidism, unspecified; F41.9 Anxiety disorder, unspecified; G40.909 Epilepsy, unspecified, not intractable, without status epilepticus; K21.9 Gastro-esophageal reflux disease without esophagitis; Z88.0 Allergy status to penicillin; K44.9 Diaphragmatic hernia without obstruction or gangrene; Z88.8 Allergy status to other drugs, medicaments and biological substances; Z91.018 Allergy to other foods; R13.10 Dysphagia, unspecified; R62.7 Adult failure to thrive; R65.20 Severe sepsis without septic shock; Y95 Nosocomial condition; Z51.5 Encounter for palliative care; Z66 Do not resuscitate; Z87.891 Personal history of nicotine dependence; Z90.49 Acquired absence of other specified parts of digestive tract; Z93.1 Gastrostomy status; Z99.81 Dependence on supplemental oxygen
CPT/HCPCS: 36415; 36600; 71045; 71260; 80048; 82040; 82803; 83605; 83735; 83880; 84145; 84484; 85025; 87040; 87070; 87081; 87205; 93005; 94640; G0378; J0456; J0692; J2020; J2405; J7620; J7626; Q9967; J2270; J2765; J7030; J7050

== ENCOUNTER 2018-09-03 16:49 | Inpatient (IN) | payer OTHER ==
[~2018-09-03] VITALS: Ht 188 cm; Wt 69.0 kg
[~2018-09-03 16:49] MED LIST changes: +AMOX1TAB64 PO; +DIPH25CA61 PO; +ESCI10TA PO; +FLUT1BLS INH; +GABA300C10 PO; +LORA-445 PO; +OMEP-110 PO; +OXYC-432 PO
[2018-09-03] MEDS ORDERED: SODIUM CHLORIDE 0.9% 1,000 ML IV SCH (17:01)
[2018-09-03] MEDS ORDERED: MORPHINE SULFATE 4 MG/ML, 1ML IVPush PRN ×3 (17:30)
[2018-09-03] MEDS ORDERED: PLEASE ENTER HEIGHT AND WEIGHT MC SCH (17:30)
[2018-09-03] MEDS ORDERED: LORazepam 2 MG/ML, 1ML IVPush PRN (17:30)
[2018-09-03] MEDS ORDERED: SCOPOLAMINE PATCH, 1.5MG PATCH.TD72 TD SCH (17:30)
[2018-09-03] MEDS: GABAPENTIN 250 MG/5 ML ORAL SOL PEG SCH (22:43)
[2018-09-03] MEDS: LAMOTRIGINE 25 MG TABLET PEG SCH (22:43)
[2018-09-04] MEDS: GABAPENTIN 250 MG/5 ML ORAL SOL PEG SCH ×3 (12:11→21:59)
[2018-09-04] MEDS: LAMOTRIGINE 25 MG TABLET PEG SCH ×2 (12:12→21:59)
[2018-09-05] MEDS: ATROPINE OPHTH SOLN 1%, 5ML BC PRN ×3 (07:22→22:57)
[2018-09-05] MEDS: LAMOTRIGINE 25 MG TABLET PEG SCH ×2 (08:28→22:57)
[2018-09-05] MEDS: GABAPENTIN 250 MG/5 ML ORAL SOL PEG SCH ×3 (08:28→22:57)
[2018-09-05] MEDS ORDERED: LORazepam INTENSOL 2 MG/ML BC PRN (15:30)
[2018-09-05] MEDS: morphine SULFATE ORAL.CONC 20 MG/ML PO PRN ×2 (17:58→22:57)
== END 2018-09-06 00:07 | disposition expired | DRG 871 ==
LOC: 4WST 17:05 → 3NW 19:16
PROVIDERS: ADMIT Internal Medicine; ATTEND Internal Medicine
DX: A41.9 Sepsis, unspecified organism (principal); J18.9 Pneumonia, unspecified organism; J96.21 Acute and chronic respiratory failure with hypoxia; C15.9 Malignant neoplasm of esophagus, unspecified; I50.32 Chronic diastolic (congestive) heart failure; J44.0 Chronic obstructive pulmonary disease with (acute) lower respiratory infection; J44.1 Chronic obstructive pulmonary disease with (acute) exacerbation; D63.8 Anemia in other chronic diseases classified elsewhere; D69.6 Thrombocytopenia, unspecified; E03.9 Hypothyroidism, unspecified; E87.6 Hypokalemia; F41.9 Anxiety disorder, unspecified; G40.909 Epilepsy, unspecified, not intractable, without status epilepticus; K44.9 Diaphragmatic hernia without obstruction or gangrene; R62.7 Adult failure to thrive; R65.20 Severe sepsis without septic shock; Z66 Do not resuscitate; Z74.01 Bed confinement status; Z85.01 Personal history of malignant neoplasm of esophagus; Z93.1 Gastrostomy status; Z99.81 Dependence on supplemental oxygen; Z90.49 Acquired absence of other specified parts of digestive tract; Z88.0 Allergy status to penicillin; Z88.1 Allergy status to other antibiotic agents
CPT/HCPCS: G0378; J2270; J7030